=== PATIENT | female | born 1940 | race Caucasian/White ===

== ENCOUNTER 2019-07-05 16:27 | Outpatient (CLI) | payer MEDICARE, SELFPAY ==
--- NOTE | ~2019-07-05 | XR_ITS ---
XR pelvis 1-2V 07/05/2019 16:55 Indication: Low back pain after recent fall Procedure: AP pelvis Comparison: No prior studies for comparison. Findings: Pelvic rings are intact. Moderate lower lumbar spondylosis. 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 Sacral foramen are symmetric. No acute fracture or traumatic malalignment. Impression: 1: No acute fracture. Reviewed, dictated and finalized at location A. Impression: 1: No acute fracture.
--- NOTE | ~2019-07-05 | XR_ITS ---
XR lumbar spine 2-3V 07/05/2019 16:55 Indication: Low back pain. Recent fall. Procedure: 3 views lumbar spine Comparison: 07/21/2018 Findings: There is disc narrowing at all lumbar levels. There is facet hypertrophy at L3-4, L4-5 and L5-S1. There is dextroscoliosis centered at L2. There is cholecystectomy clips. No acute fracture or traumatic malalignment. Impression: 1: Stable moderate-severe lumbar spondylosis with dextroscoliosis. Reviewed, dictated and finalized at location A. Impression: 1: Stable moderate-severe lumbar spondylosis with dextroscoliosis.
== END 2019-07-05 16:28 | disposition home or self-care (01) ==
PROVIDERS: PCP Family Medicine; Visit Provider Family Medicine
DX: S39.92XA Unspecified injury of lower back, initial encounter (principal)
CPT/HCPCS: 72100; 72170

== ENCOUNTER 2019-08-27 10:00 | Outpatient (RCR) | payer MEDICARE, SELFPAY ==
--- NOTE | 2019-08-27 10:46 | PTOPEVAL ---
Thank you for referring Kerri Scott to [facility]. Please review, sign, date and return this plan of care ANTONIO. I agree with and certify that the following plan of care is medically necessary. Referring Physician Date Admitting Provider: Attending Provider: Nito Mccann MD Referring Provider: *PT Outpatient Evaluation Start: 08/27/19 10:08 Freq: Status: Active Protocol: Document 08/27/19 10:08 ELISEO (Rec: 08/27/19 10:46 ELISEO [id number]) Therapy Assessment Status Assessment Status Assessment Status Evaluation Outpatient Past Medical History Cardiovascular History Hx Hypercholesterolemia Yes Hx Hypertension Yes Gastrointestinal History Hx Cholecystectomy Yes Hx Diverticulitis Yes Reproductive History Hx Hysterectomy Yes Evaluation Information Problem Diagnosis low back pain Onset 07/04/19 Subjective Information Pt. reports she was shopping Query Text:As Reported By Patient/ on 07/03 when her leg hit a box Family and she fell against a shelf hitting her back. She reports that she twisted her right l. e. and back. She reports that she went to her doctor who performed xray. She reports that no injury on her xray. She states that majority of her pain is located at the area of the right buttock. She has some right knee pain as well. She reports that pain worsens with increased activity. She reports pain has not improved since the incident. she reports that she is still driving and shopping just with pain. she reports that her goal is to decrease her back pain. Diagnostic Tests X-Rays For This Problem Yes Prior Level of Function Activity Level (Last 3 Months) Occupation retired Hand Dominance Right Activity of Daily Living Ability Independent Indoor/Home Mobility Independent Community Mobility Independent Stairs Ability Independent Functional Cognition (Planning, Shopping Independent , Taking Medications) Cooking Yes Cleaning Yes Laundry Yes Shopping
--- NOTE | 2019-09-20 13:57 | PCPTNOTE ---
09/20/19-pt called to cancel apt, pt stated her legs were jumping today and she didn't want to drive . -HM
--- NOTE | 2019-10-01 13:08 | PTOPEVAL ---
Thank you for referring Kerri Scott to [facility]. Please review, sign, date and return this plan of care ANTONIO. I agree with and certify that the following plan of care is medically necessary. Referring Physician Date Admitting Provider: Attending Provider: Nito Mccann MD Referring Provider: *PT Outpatient Evaluation Start: 08/27/19 10:08 Freq: Status: Active Protocol: Document 10/01/19 12:51 ELISEO (Rec: 10/01/19 13:02 ELISEO [id number]) Therapy Assessment Status Assessment Status Assessment Status Progress Outpatient Past Medical History Cardiovascular History Hx Hypercholesterolemia Yes Hx Hypertension Yes Gastrointestinal History Hx Cholecystectomy Yes Hx Diverticulitis Yes Reproductive History Hx Hysterectomy Yes Evaluation Information Problem Diagnosis low back pain, unsteady gait Onset 07/04/19 Subjective Information Pt. reports that her low back Query Text:As Reported By Patient/ pain is signficantly improved. Family She reports that pain levels at the low back are consistent 07/02. She states that she still has concerns regarding balance. She notes difficulty with lifting objects from the floor, espeically if she does not having something to hold. She reports several recent episodes of LOB and the right l.e. giving out. She reports that she wants to continue with PT in order to improve balance and strength to allow for her to imrpove safety when performing normal household and community activities. Pain Assessment Pain Scale Pain Scale Used Numeric (1 - 10) Self Report Pain Assessment Right Lower Back Reported Pain Level 3 Pain Score Pain Score 3: Self Report Cervical and Lumbar ROM Lumbar ROM Lumbar Flexion Active Ankle Query Text:Hands to: Lumbar Extension (0-40) 10 Query Text:Active in Degrees Lumbar Lateral Flexion Right (0-40) 20 Query Text:Active in Degrees Lumbar Lateral Flexion Left (0-40) 35 Query Text:Active in Degrees Lateral Rotation Right (0-45) 25 Query Text:Active in Degrees Lateral Rotation Left (0-45) 30 Query Text:Active in
--- NOTE | 2019-10-16 11:11 | PCPTNOTE ---
patient called and cancelled appt. APURVA
== END 2019-10-09 23:59 | disposition home or self-care (01) ==
LOC: CHSPT 10:00
PROVIDERS: PCP Family Medicine; Visit Provider Family Medicine
DX: S39.92XA Unspecified injury of lower back, initial encounter (principal)
CPT/HCPCS: 97014; 97110; 97140; 97161; 97530; G0283

== ENCOUNTER 2019-10-17 15:35 | Outpatient (CLI) | payer MEDICARE, SELFPAY ==
[2019-10-17 15:45] LABS: Hemoglobin 13.1 g/dL (11.7-13.8); Mean Corpuscular HGB Conc 32.8 g/dL (32.0-36.0); Mean Corpuscular Hemoglobin 31.2 pg (27.0-31.0); Mean Corpuscular Volume 95.2 fL (78.0-102.0); Mean Platelet Volume 9.4 fl (9.2-11.8); Platelet Count Result 221 K/mm3 (150-420); Red Cell Distribution Width 12.8 % (11.6-14.4); White Blood Count 7.3 K/mm3 (4.8-10.8)
== END 2019-10-17 15:36 | disposition home or self-care (01) ==
LOC: CHSLAB 15:37
PROVIDERS: PCP Family Medicine; Visit Provider Family Medicine
DX: K92.1 Melena (principal)
CPT/HCPCS: 36415; 85027

== ENCOUNTER 2019-11-12 12:10 | Outpatient (CLI) | payer MEDICARE, SELFPAY ==
--- NOTE | ~2019-11-12 | MM_ITS ---
EXAMINATION: MM screening keny BI w jeet HISTORY: Screening mammogram TECHNIQUE: Craniocaudal and mediolateral oblique 3-D tomosynthesis images were obtained and synthetic 2-D images were generated. CAD analysis was submitted and interpreted. COMPARISON: Comparison to multiple prior studies sequentially, with oldest reviewed study dated 11/04. BREAST PARENCHYMAL COMPOSITION: There are scattered areas of fibroglandular density. FINDINGS: Postbiopsy changes are seen in the right breast. There is no evidence of suspicious mass, c alcification, or architectural distortion to suggest malignancy in either breast. There has been no s uspicious interval change. IMPRESSION: 1. No mammographic evidence of malignancy. 2. Recommend routine screening mammography in one year. BI-RADS Category 2: Benign finding(s). Reviewed, dictated and finalized at location A.
== END 2019-11-12 12:11 | disposition home or self-care (01) ==
LOC: CHSIMG 12:12
PROVIDERS: PCP Family Medicine; Visit Provider Family Medicine
DX: Z12.31 Encounter for screening mammogram for malignant neoplasm of breast (principal)
CPT/HCPCS: 77063; 77067

== ENCOUNTER 2019-12-14 12:00 | Outpatient (CLI) | payer MEDICARE, SELFPAY ==
[2019-12-14 12:35] LABS: Add Urine Microscopic? YES; Appearance Urine Clear (Clear); Bilirubin Urine Negative (Negative); Blood Urine Negative (Negative); Color Urine Yellow (Yellow); Glucose Urine UA Negative (Negative); Ketones Urine Negative (Negative); Leukocyte Esterase Ur 1+ LEU/UL (Negative); Nitrate Urine Negative (Negative); Protein Urine Negative (Negative); Specific Grav Ur 1.015 (1.010-1.020); Urobilinogen Urine 0.2 mg/dL (0.2-1.0); pH Urine 6.5 (5.0-8.0)
[2019-12-14 12:40] LABS: Bacteria Urine Trace /hpf; RBC Urine None seen /hpf (0-2); Squamous Epithelial Cell Urine Few /hpf (Few); WBC Urine 0-3 /hpf (0-3)
== END 2019-12-14 12:01 | disposition home or self-care (01) ==
LOC: CHSLAB 12:04
PROVIDERS: PCP Family Medicine; Visit Provider Family Medicine
DX: R30.0 Dysuria (principal)
CPT/HCPCS: 81001; 87086

== ENCOUNTER 2019-12-16 11:04 | Outpatient (CLI) | payer MEDICARE, SELFPAY ==
--- NOTE | ~2019-12-16 | MR_ITS ---
EXAMINATION: MR lumbar spine wo con DATE: 12/16/2019 12:13 INDICATION: Lumbago TECHNIQUE: Magnetic resonance imaging (MRI) of the lumbar spine was performed without intravenous con trast. Sequences included sagittal T2-weighted FSE, sagittal T2-weighted FS FSE, sagittal T1-weighted FSE, and axial T2-weighted FSE. COMPARISON: Lumbar spine radiographs dated 07/05/2019 FINDINGS: Transitional L5 segment which is sacralized on the right and with rudimentary L5-S1 disc space. Mild lumbar dextrorotoscoliosis. Sagittal alignment is normal. Vertebral body heights are normal. Small fo cus of increased T2 signal underlying the central endplate at L1 corresponding relatively linear decr eased T1 signal suggesting a dropping Schmorl's node with sub endplate compression fracture line. [place] ctive marrow edema without evident fracture lines is seen at the bilateral posterior elements of L4 a nd L5. Mild left-sided and severe right-sided disc height loss at L4-L5 with associated right-sided p revascular degenerative endplate changes. Mild to severe left-sided predominant disc height loss at L 2-L3. Mild left-sided disc height loss at L1-L2 and L3-L4. The conus medullaris terminates at L1-L2. There is normal signal in the caudal spinal cord. Paravertebral soft tissues are unremarkable. The fo llowing disc levels are specifically discussed: T12-L1: The disc does not extend beyond the endplate margin. There is mild bilateral facet joint oste oarthritis. There is no neural foraminal stenosis. There is no central canal stenosis. L1-L2: Disc is mildly bulging. There is left-sided and minimal right-sided facet joint osteoarthritis . There is mild bilateral neural foraminal stenosis. There is minimal central canal stenosis. L2-L3: Disc is bulging. There is moderate bilateral facet joint osteoarthritis. There is moderate lef t-sided and mild to moderate right-sided neural foraminal stenosis. There is mild to moderate central canal stenosis. L3-L4: The disc does not extend beyond the endplate margin. There is hypertrophy of the ligamentum fl avum. There is mild right facet joint osteoarthritis. There is solid fusion across the left facet renaldo nt. There is mild bilateral neural foraminal stenosis. There is minimal central canal stenosis. L4-L5: Disc is bulging with superimposed annular fissure as well as endplate osteophytes at the right foraminal zone. There is hypertrophy of the ligamentum flavum. There is severe bilateral facet join t osteoarthritis. There is mild left and severe right neural foraminal stenosis. There is mild centra l canal stenosis. L5-S1: The disc does not extend beyond the endplate margin. There is severe bilateral facet joint ost eoarthritis. There is no neural foraminal stenosis. There is no central canal stenosis. IMPRESSION: 1. Mild lumbar dextrorotoscoliosis with severe spondylosis. 2. Edema associated with small region of linear low signal intensity underlying the central superior endplate of L1 suspicious for subacute endplate fracture line related to developing Schmorl's node. Reviewed, dictated and finalized at location A.
== END 2019-12-16 11:05 | disposition home or self-care (01) ==
PROVIDERS: PCP Family Medicine; Visit Provider Nurse Practitioner Family
DX: M47.896 Other spondylosis, lumbar region (principal)
CPT/HCPCS: 72148

== ENCOUNTER 2020-05-16 07:59 | Outpatient (CLI) | payer MEDICARE, SELFPAY ==
--- NOTE | ~2020-05-16 | US_ITS ---
EXAMINATION: US venous doppler [facility] EXAM DATE: 05/16/2020 09:15 INDICATION: Left leg swelling. TECHNIQUE: Multiple grayscale, color flow and Doppler images of the left lower extremity deep venous system were obtained and reviewed. There is no prior study for comparison. FINDINGS: The left common femoral, femoral and profunda veins demonstrate normal color flow, respirat ory variation, augmentation and compressibility. Compressibility, color flow confirmed within the le ft popliteal, posterior tibial, peroneal, and greater saphenous veins. IMPRESSION: No left lower extremity deep venous thrombosis. Reviewed, dictated and finalized at location A. SETTER
--- NOTE | ~2020-05-16 | US_ITS ---
EXAMINATION: US arterial ankle brachial ind DATE: 05/16/2020 09:15 INDICATION: Left lower limb swelling. TECHNIQUE: Segmental pressures and plethysmographic and Doppler waveforms of the brachial and lower e xtremity arteries were obtained. COMPARISON: None. FINDINGS: Right and left brachial artery pressures of 155 mm Hg and 156 mm Hg, respectively, are concordant (no rmal difference <= 30 mmHg). The right ankle-brachial index (JOSSIE) is 1.33 (normal >= 0.9-1.0). The right great toe-brachial index (TBI) is 1.20 (normal >= 0.65). Arterial Doppler waveforms are biphasic with brisk systolic upstrokes at both the right posterior tibial and dorsalis pedis arteries. The left JOSSIE is 1.14. The left TBI is 0.93. Arterial Doppler waveforms are biphasic with persistent u pstrokes at both the left posterior tibial and dorsalis pedis arteries. IMPRESSION: 1. No significant arterial occlusive disease with normal bilateral ABIs and TBIs. Reviewed, dictated and finalized at location A. E BUSINESS ANALYST IMPRESSION: 1. No significant arterial occlusive disease with normal bilateral ABIs and TBI s.
== END 2020-05-16 08:00 | disposition home or self-care (01) ==
LOC: CHSIMG 08:01
PROVIDERS: PCP Nurse Practitioner Family; Visit Provider Nurse Practitioner Family
DX: M79.89 Other specified soft tissue disorders (principal)
CPT/HCPCS: 93922; 93971

== ENCOUNTER 2020-05-29 12:28 | Outpatient (CLI) | payer MEDICARE, SELFPAY ==
--- NOTE | ~2020-05-29 | XR_ITS ---
XR foot LT min 3V DATE: 05/29/2020 13:12 INDICATION: Posterior heel pain. No known injury. TECHNIQUE: 3 views COMPARISON: None FINDINGS: Prominent posterior calcaneal enthesopathy. Diffuse osteopenia. Osteoarthritis at the first metatarsophalangeal joint. Hallux valgus and bunion deformity. No fracture or dislocation, periosteal reaction or bone destruction. IMPRESSION: Prominent posterior calcaneal enthesopathy Diffuse osteopenia Hallux valgus and bunion deformity Osteoarthritis at first metatarsophalangeal joint Reviewed, dictated and finalized at location A. [facility]
== END 2020-05-29 12:29 | disposition home or self-care (01) ==
LOC: CHSLAB 12:31
PROVIDERS: PCP Nurse Practitioner Family; Visit Provider Podiatrist
DX: M79.671 Pain in right foot (principal); M72.2 Plantar fascial fibromatosis
CPT/HCPCS: 73630

== ENCOUNTER 2020-06-16 12:37 | Outpatient (RCR) | payer MEDICARE, SELFPAY ==
--- NOTE | 2020-06-16 13:54 | PTOPEVAL ---
Thank you for referring Kerri Scott to [facility].? The patient is scheduled to be seen for therapy? __3__x/week for 12 visits. Please review, sign, date and return this plan of care ANTONIO. I agree with and certify that the following plan of care is medically necessary. Referring Physician Date Admitting Provider: Attending Provider: Chemo Faust DPM Referring Provider: *PT Outpatient Evaluation Start: 06/16/20 12:58 Freq: Status: Active Protocol: Document 06/16/20 12:59 ELISEO (Rec: 06/16/20 13:54 ELISEO [id number]) Therapy Assessment Status Assessment Status Assessment Status Evaluation Outpatient Past Medical History Neurological History Hx Neurological Disorders No Significant History Cardiovascular History Hx Cardiac Arrhythmia Yes: Rapid Heart Beat several years ago Hx Coronary Artery Disease Yes: Right Endarterectomy Hx Hypercholesterolemia Yes Hx Hypertension Yes Respiratory History Hx Respiratory Disorders No Significant History Gastrointestinal History Hx Cholecystectomy Yes Hx Colitis Yes Hx Diverticulitis Yes Hx Gastrointestinal Bleed Yes: Blood in Stool 09/2019 Genitourinary History Hx Bladder Surgery Yes: R/T Prolapsed bladder Musculoskeletal History Hx Arthritis Yes: Biltaeral knees Hematological History Hx Hematological Disorders No Significant History Endocrine History Hx Endocrine Disorders No Significant History HEENT History Hx Cataracts Yes: Removed Integumentary History Hx Skin Disorders No Significant History Reproductive History Hx Hysterectomy Yes: Partial Psychosocial History Hx Psychiatric Disorders No Significant History Pain History History of Any Previous or Ongoing No Significant History Instance of Pain Anesthesia History Hx Other Anesthesia Reactions Yes: Facial swelling & trouble breathing after 2 unknown anes. meds were given. Evaluation Information Problem Diagnosis achilles tendonitis, plantar fasciitis, left Onset 04/25/20 Subjective Information Pt. reports that she developed Query Text:As Reported By Patient/ pain around the begining of Family april. she recalls no incident just sudden onset of pain. She reports that pain will come and go, but is present majority of the time. She reports that she is still able to care for herself,
--- NOTE | 2020-07-29 07:31 | PTOPEVAL ---
Thank you for referring Kerri Scott to [facility].? The patient is scheduled to be seen for therapy? __2__x/week for 6 visits. Please review, sign, date and return this plan of care ANTONIO. I agree with and certify that the following plan of care is medically necessary. Referring Physician Date Admitting Provider: Attending Provider: Chemo Faust DPM Referring Provider: *PT Outpatient Evaluation Start: 06/16/20 12:58 Freq: Status: Active Protocol: Document 07/16/20 11:15 ELISEO (Rec: 07/16/20 11:48 ELISEO [email or web address]) Therapy Assessment Status Assessment Status Assessment Status Progress Outpatient Past Medical History Neurological History Hx Neurological Disorders No Significant History Cardiovascular History Hx Cardiac Arrhythmia Yes: Rapid Heart Beat several years ago Hx Coronary Artery Disease Yes: Right Endarterectomy Hx Hypercholesterolemia Yes Hx Hypertension Yes Respiratory History Hx Respiratory Disorders No Significant History Gastrointestinal History Hx Cholecystectomy Yes Hx Colitis Yes Hx Diverticulitis Yes Hx Gastrointestinal Bleed Yes: Blood in Stool 09/2019 Genitourinary History Hx Bladder Surgery Yes: R/T Prolapsed bladder Musculoskeletal History Hx Arthritis Yes: Biltaeral knees Hematological History Hx Hematological Disorders No Significant History Endocrine History Hx Endocrine Disorders No Significant History HEENT History Hx Cataracts Yes: Removed Integumentary History Hx Skin Disorders No Significant History Reproductive History Hx Hysterectomy Yes: Partial Psychosocial History Hx Psychiatric Disorders No Significant History Pain History History of Any Previous or Ongoing No Significant History Instance of Pain Anesthesia History Hx Other Anesthesia Reactions Yes: Facial swelling & trouble breathing after 2 unknown anes. meds were given. Evaluation Information Problem Diagnosis achilles tendonitis, plantar fasciitis, left Onset 04/25/20 Subjective Information Pt. reports that her foot pain Query Text:As Reported By Patient/ is better but still present. Family She reports that she is walking better since beginning therapy, but still needs to use her walker. She notes more frequent episodes of the right knee giving out. she feels she has just gotten to
== END 2020-08-15 08:56 | disposition home or self-care (01) ==
LOC: CHSPT 12:37
PROVIDERS: PCP Nurse Practitioner Family; Visit Provider Podiatrist
DX: M72.2 Plantar fascial fibromatosis (principal); M76.62 Achilles tendinitis, left leg
CPT/HCPCS: 97110; 97112; 97140; 97161; 97530

== ENCOUNTER 2020-08-23 10:32 | Outpatient (CLI) | payer MEDICARE, SELFPAY | END 2020-08-23 10:33 | disposition home or self-care (01) | LOC: CHSCOVIDVC 10:32 | PROVIDERS: PCP Nurse Practitioner Family | DX: Z23 Encounter for immunization (principal) | CPT/HCPCS: 0011A; 91301 ==

== ENCOUNTER 2020-09-20 10:38 | Outpatient (CLI) | payer MEDICARE, SELFPAY | END 2020-09-20 10:39 | disposition home or self-care (01) | LOC: CHSCOVIDVC 10:38 | PROVIDERS: PCP Nurse Practitioner Family | DX: Z23 Encounter for immunization (principal) | CPT/HCPCS: 0012A; 91301 ==

== ENCOUNTER 2020-09-30 11:40 | Outpatient (NON) | payer MEDICARE, SELFPAY | END 2020-09-30 11:41 | disposition home or self-care (01) | LOC: CHSLAB 11:41 | PROVIDERS: Visit Provider Nurse Practitioner Family | DX: N39.0 Urinary tract infection, site not specified (principal) | CPT/HCPCS: 87086 ==

== ENCOUNTER 2020-12-01 11:50 | Outpatient (CLI) | payer MEDICARE, SELFPAY ==
--- NOTE | ~2020-12-01 | MM_ITS ---
EXAMINATION: MM screening [facility] BI w jeet HISTORY: Screening TECHNIQUE: Craniocaudal and mediolateral oblique 3-D tomosynthesis images were obtained and synthetic 2-D images were generated. CAD analysis was submitted and interpreted. COMPARISON: Comparison to multiple prior studies sequentially, with oldest reviewed study dated 11/10. BREAST PARENCHYMAL COMPOSITION: There are scattered areas of fibroglandular density. FINDINGS: There are stable biopsy changes of the right breast. There is no evidence of suspicious mas s, calcification, or architectural distortion to suggest malignancy in either breast. There has been no suspicious interval change. IMPRESSION: 1. No mammographic evidence of malignancy. 2. Recommend routine screening mammography in one year. BI-RADS Category 2: Benign finding(s). Reviewed, dictated and finalized at location A.
== END 2020-12-01 11:51 | disposition home or self-care (01) ==
LOC: CHSIMG 11:51
PROVIDERS: PCP Nurse Practitioner Family; Visit Provider Nurse Practitioner Family
DX: Z12.31 Encounter for screening mammogram for malignant neoplasm of breast (principal)
CPT/HCPCS: 77063; 77067

== ENCOUNTER 2021-03-31 11:47 | Outpatient (CLI) | payer MEDICARE, SELFPAY ==
[2021-03-31 13:45] LABS: Basophils Absolute Auto 0.05 K/mm3 (0.00-0.10); Basophils Percent Auto 0.6 % (0.0-1.0); Eosinophils Absolute Auto 0.09 K/mm3 (0.02-0.50); Hematocrit 38.9 % (35.0-42.0); Hemoglobin 12.6 g/dL (11.7-13.8); Immature Granulocyte Absolute 0.03 K/mm3 (0.00-0.00); Immature Granulocyte Percent A 0.3 % (0.0-0.0); Lymphocytes Absolute Auto 1.64 K/mm3 (1.10-4.50); Mean Corpuscular HGB Conc 32.4 g/dL (32.0-36.0); Mean Corpuscular Hemoglobin 30.5 pg (27.0-31.0); Mean Corpuscular Volume 94.2 fL (78.0-102.0); Mean Platelet Volume 11.2 fl (9.2-11.8); Monocytes Absolute Auto 0.73 K/mm3 (0.10-0.90); Monocytes Percent Auto 8.5 % (2.0-11.0); Neutrophils Absolute Auto 6.1 K/mm3 (1.7-7.2); Neutrophils Percent Auto 70.6 % (50.0-70.0); Platelet Count Result 238 K/mm3 (150-420); Red Blood Count 4.13 M/mm3 (4.20-5.40); Red Cell Distribution Width 13.8 % (11.6-14.4); White Blood Count 8.6 K/mm3 (4.8-10.8)
[2021-03-31 14:06] LABS: Alanine Aminotransferase 18 U/L (14-59); Albumin Level 3.9 g/dL (3.4-5.0); Alkaline Phosphatase 57 U/L (46-116); Anion Gap 12 mmol/L (8-16); Aspartate Amino Transferase 15 U/L (15-37); Bilirubin,Total 0.6 mg/dL (0.00-1.00); Blood Urea Nitrogen 18 mg/dL (7-18); Calcium 8.9 mg/dL (8.5-10.1); Carbon Dioxide 28 mmol/L (21-32); Chloride 103 mmol/L (98-108); Cholesterol 145 mg/dL (0-200); Estimated Glomerular Filt Rate > 60; Glucose 89 mg/dL (70-99); HDL Direct 69 mg/dL (40-60); LDL Cholesterol Calculated 65 mg/dL (<130); Osmolality Calculated 296 mOsm/kg (285-295); Potassium 4.3 mmol/L (3.5-5.1); Sodium 143 mmol/L (136-145); Total Protein 7.3 g/dL (6.4-8.2); Triglycerides 55 mg/dL (0-150)
== END 2021-03-31 11:48 | disposition home or self-care (01) ==
PROVIDERS: PCP Nurse Practitioner Family; Visit Provider Nurse Practitioner Family
DX: E78.5 Hyperlipidemia, unspecified (principal); I10 Essential (primary) hypertension
CPT/HCPCS: 36415; 80053; 80061; 85025

== ENCOUNTER 2021-04-06 10:11 | Outpatient (NON) | payer MEDICARE, SELFPAY | END 2021-04-06 10:12 | disposition home or self-care (01) | LOC: CHSLAB 10:12 | PROVIDERS: Visit Provider Nurse Practitioner Family | DX: R30.0 Dysuria (principal) | CPT/HCPCS: 87086 ==

== ENCOUNTER 2021-08-17 10:00 | Outpatient (CLI) | payer MEDICARE, SELFPAY ==
[2021-08-17 10:13] LABS: Basophils Absolute Auto 0.04 K/mm3 (0.00-0.10); Basophils Percent Auto 0.5 % (0.0-1.0); Eosinophils Percent Auto 2.3 % (1.0-6.0); Hematocrit 43.7 % (35.0-42.0); Hemoglobin 13.8 g/dL (11.7-13.8); Immature Granulocyte Absolute 0.05 K/mm3 (0.00-0.00); Immature Granulocyte Percent A 0.6 % (0.0-0.0); Lymphocytes Absolute Auto 1.68 K/mm3 (1.10-4.50); Lymphocytes Percent Auto 19.6 % (18.0-42.0); Mean Corpuscular HGB Conc 31.6 g/dL (32.0-36.0); Mean Corpuscular Hemoglobin 31.6 pg (27.0-31.0); Mean Platelet Volume 10.1 fl (9.2-11.8); Monocytes Absolute Auto 0.79 K/mm3 (0.10-0.90); Monocytes Percent Auto 9.2 % (2.0-11.0); Neutrophils Absolute Auto 5.8 K/mm3 (1.7-7.2); Neutrophils Percent Auto 67.8 % (50.0-70.0); Platelet Count Result 263 K/mm3 (150-420); Red Blood Count 4.37 M/mm3 (4.20-5.40); Red Cell Distribution Width 12.3 % (11.6-14.4); White Blood Count 8.6 K/mm3 (4.8-10.8)
[2021-08-17 10:22] LABS: Add Urine Microscopic? YES; Appearance Urine Clear (Clear); Bilirubin Urine Negative (Negative); Blood Urine Negative (Negative); Color Urine Light Yellow (Yellow); Glucose Urine UA Negative (Negative); Ketones Urine Negative (Negative); Leukocyte Esterase Ur 1+ LEU/UL (Negative); Nitrate Urine Negative (Negative); Protein Urine Negative (Negative); Urobilinogen Urine 0.2 mg/dL (0.2-1.0); pH Urine 5.5 (5.0-8.0)
[2021-08-17 10:33] LABS: Bacteria Urine Trace /hpf; RBC Urine None seen /hpf (0-2); Squamous Epithelial Cell Urine Few /hpf (Few); WBC Urine 0-3 /hpf (0-3)
[2021-08-17 10:59] LABS: Alanine Aminotransferase 17 U/L (14-59); Albumin Level 3.9 g/dL (3.4-5.0); Alkaline Phosphatase 60 U/L (46-116); Anion Gap 8 mmol/L (8-16); Aspartate Amino Transferase 18 U/L (15-37); Bilirubin,Total 0.4 mg/dL (0.00-1.00); Blood Urea Nitrogen 12 mg/dL (7-18); Calcium 9.2 mg/dL (8.5-10.1); Carbon Dioxide 30 mmol/L (21-32); Chloride 105 mmol/L (98-108); Estimated Glomerular Filt Rate > 60; Glucose 105 mg/dL (70-99); Osmolality Calculated 295 mOsm/kg (285-295); Potassium 4.1 mmol/L (3.5-5.1); Sodium 143 mmol/L (136-145); Total Protein 7.4 g/dL (6.4-8.2)
== END 2021-08-17 10:01 | disposition home or self-care (01) ==
LOC: CHSLAB 10:03
PROVIDERS: PCP Nurse Practitioner Family; Visit Provider Nurse Practitioner Family
DX: Z87.898 Personal history of other specified conditions (principal); I10 Essential (primary) hypertension; R82.90 Unspecified abnormal findings in urine
CPT/HCPCS: 36415; 80053; 81001; 85025; 87086

== ENCOUNTER 2021-10-07 14:39 | Outpatient (CLI) | payer MEDICARE, SELFPAY ==
--- NOTE | ~2021-10-07 | US_ITS ---
EXAMINATION: US venous doppler [facility] DATE: 10/07/2021 15:27 INDICATION: Left lower limb swelling and erythema TECHNIQUE: Grayscale ultrasound images without and with compression and Doppler ultrasound images of the left lower extremity veins were obtained. COMPARISON: 05/16/2020 FINDINGS: The visualized portions of left common femoral vein, profunda (deep) femoral vein, femoral vein, popl iteal vein, peroneal veins, posterior tibial veins, gastrocnemius vein and greater saphenous vein out flow are patent. 3.9 x 1.1 x 2.3 cm anechoic Yeung cyst at the popliteal fossa. IMPRESSION: 1. No deep venous thrombosis in the left lower limb. 2. Small Yeung's cyst at the left popliteal fossa. Reviewed, dictated and finalized at location A.
[2021-10-07 15:03] LABS: Basophils Absolute Auto 0.04 K/mm3 (0.00-0.10); Basophils Percent Auto 0.5 % (0.0-1.0); Eosinophils Absolute Auto 0.11 K/mm3 (0.02-0.50); Eosinophils Percent Auto 1.4 % (1.0-6.0); Hematocrit 41.9 % (35.0-42.0); Hemoglobin 13.6 g/dL (11.7-13.8); Immature Granulocyte Absolute 0.06 K/mm3 (0.00-0.00); Immature Granulocyte Percent A 0.7 % (0.0-0.0); Lymphocytes Absolute Auto 1.73 K/mm3 (1.10-4.50); Lymphocytes Percent Auto 21.5 % (18.0-42.0); Mean Corpuscular HGB Conc 32.5 g/dL (32.0-36.0); Mean Corpuscular Hemoglobin 31.4 pg (27.0-31.0); Mean Corpuscular Volume 96.8 fL (78.0-102.0); Mean Platelet Volume 9.7 fl (9.2-11.8); Monocytes Absolute Auto 0.62 K/mm3 (0.10-0.90); Monocytes Percent Auto 7.7 % (2.0-11.0); Neutrophils Absolute Auto 5.5 K/mm3 (1.7-7.2); Neutrophils Percent Auto 68.2 % (50.0-70.0); Platelet Count Result 263 K/mm3 (150-420); Red Blood Count 4.33 M/mm3 (4.20-5.40); Red Cell Distribution Width 12.1 % (11.6-14.4); White Blood Count 8.1 K/mm3 (4.8-10.8)
[2021-10-07 15:24] LABS: D Dimer 1.07 mg/L (0.19-0.50)
[2021-10-07 17:22] LABS: Alanine Aminotransferase 16 U/L (14-59); Albumin Level 3.6 g/dL (3.4-5.0); Alkaline Phosphatase 64 U/L (46-116); Anion Gap 5 mmol/L (8-16); Aspartate Amino Transferase 17 U/L (15-37); Bilirubin,Total 0.3 mg/dL (0.00-1.00); Blood Urea Nitrogen 12 mg/dL (7-18); Carbon Dioxide 30 mmol/L (21-32); Chloride 105 mmol/L (98-108); Estimated Glomerular Filt Rate 57; Glucose 117 mg/dL (70-99); Osmolality Calculated 290 mOsm/kg (285-295); Potassium 3.5 mmol/L (3.5-5.1); Sodium 140 mmol/L (136-145); Total Protein 7.4 g/dL (6.4-8.2)
== END 2021-10-07 14:40 | disposition home or self-care (01) ==
PROVIDERS: PCP Nurse Practitioner Family; Visit Provider Nurse Practitioner Family
DX: M79.89 Other specified soft tissue disorders (principal); R23.8 Other skin changes; R79.89 Other specified abnormal findings of blood chemistry
CPT/HCPCS: 36415; 80053; 83036; 85025; 85380; 93971

== ENCOUNTER 2021-10-08 12:42 | Outpatient (CLI) | payer MEDICARE, SELFPAY ==
--- NOTE | ~2021-10-08 | XR_ITS ---
XR chest 2V DATE: 10/08/2021 14:09 INDICATION: Syncope. Elevated d-dimer. TECHNIQUE: 2 views COMPARISON: 10/08/2021 pulmonary perfusion scan 04/07/2016 2 view chest FINDINGS: There is chronic bilateral apical capping, present on 04/07/2016. Moderate hyperinflation of the lungs. No pulmonary infiltrate or consolidation, pleural effusion or p ulmonary vascular congestion or pneumothorax. Normal heart size. Is aortic calcification and mild unfolding. No hilar or mediastinal enlargement. Diffuse osteopenia. There is levoscoliosis of the thoracolumbar spine. IMPRESSION: Chronic bilateral apical scarring and moderate hyperinflation No active cardiopulmonary disease or significant change since 04/07/2016 Reviewed, dictated and finalized at location A.
--- NOTE | ~2021-10-08 | NM_ITS ---
EXAMINATION: NM pulmonary perfusion DATE: 10/08/2021 14:11 INDICATION: Pulmonary embolus. Syncope. Elevated d-dimer. TECHNIQUE: 5.0 mCi Tc-99m MAA was administered intravenously for perfusion images. Scintigraphic rachel ges of the chest were obtained. COMPARISON: Chest 2 views 10/08/2021, CT abdomen and pelvis 03/23/2019 FINDINGS: Perfusion images show small defects in all lobes. IMPRESSION: 1. Pulmonary embolism absent (low probability). Reviewed, dictated and finalized at location B.
[2021-10-08 13:42] LABS: Hemoglobin A1C 6.4 % (<5.7)
== END 2021-10-08 12:43 | disposition home or self-care (01) ==
LOC: CHSIMG 12:49
PROVIDERS: PCP Nurse Practitioner Family; Visit Provider Nurse Practitioner Family
DX: R73.09 Other abnormal glucose (principal); R79.89 Other specified abnormal findings of blood chemistry
CPT/HCPCS: 36415; 71046; 78580; 83036; A9540

== ENCOUNTER 2021-12-02 11:45 | Outpatient (CLI) | payer MEDICARE, SELFPAY ==
--- NOTE | ~2021-12-02 | MM_ITS ---
EXAMINATION: MM screening [facility] BI w jeet HISTORY: Screening mammogram TECHNIQUE: Craniocaudal and mediolateral oblique 3-D tomosynthesis images were obtained and synthetic 2-D images were generated. CAD analysis was submitted and interpreted. COMPARISON: 12/01/2020, 11/12/2019, 11/17/2018 BREAST PARENCHYMAL COMPOSITION: There are scattered areas of fibroglandular density. FINDINGS: RIGHT BREAST: There is no suspicious mass, calcification, or architectural distortion to suggest omaira gnancy. There has been no significant interval change. LEFT BREAST: There is a possible mass in the anterior third of the upper outer quadrant of the breast 4 cm from the nipple. IMPRESSION: 1. Possible left breast. 2. Additional mammographic views and possible breast ultrasound are recommended. BI-RADS Category 0: Incomplete: Needs additional imaging evaluation. Reviewed, dictated and finalized at location A. IMPRESSION: 1. Possible left breast. 2. Additional mammographic views and possible breast ultrasound are recommended . BI-RADS Category 0: Incomplete: Needs additional imaging evaluation.
== END 2021-12-02 11:46 | disposition home or self-care (01) ==
LOC: CHSIMG 11:48
PROVIDERS: PCP Nurse Practitioner Family; Visit Provider Nurse Practitioner Family
DX: Z12.31 Encounter for screening mammogram for malignant neoplasm of breast (principal)
CPT/HCPCS: 77063; 77067

== ENCOUNTER 2021-12-11 08:46 | Outpatient (CLI) | payer MEDICARE, SELFPAY ==
--- NOTE | ~2021-12-11 | MM_ITS ---
EXAMINATION: MM diagnostic keny LT w jeet HISTORY: Possible small breast mass in anterior third of upper outer quadrant 4 cm from nipple TECHNIQUE: Additional 3-D tomosynthesis images of left breast were performed and synthetic 2-D images were generated. CAD analysis was submitted and interpreted. COMPARISON: 12/02/2021 bilateral screening mammogram FINDINGS: No suspicious reproducible mass. No architectural distortion, malignant calcification, skin thickening or retraction. IMPRESSION: 1. No mammographic evidence of malignancy 2. Routine mammographic screening is recommended BI-RADS Category 1: Negative Reviewed, dictated and finalized at location A.
== END 2021-12-11 08:47 | disposition home or self-care (01) ==
PROVIDERS: PCP Nurse Practitioner Family; Visit Provider Nurse Practitioner Family
DX: N63.20 Unspecified lump in the left breast, unspecified quadrant (principal); R92.8 Other abnormal and inconclusive findings on diagnostic imaging of breast
CPT/HCPCS: 77061; 77065; G0279

== ENCOUNTER 2022-10-21 18:03 | Emergency (ER) | payer MEDICARE, SELFPAY ==
--- NOTE | ~2022-10-21 | CT_ITS ---
EXAMINATION: CT abdomen pelvis wo con DATE: 10/21/2022 19:12 INDICATION: DIARRHEA X 5 DAYS TECHNIQUE: Computed tomography (CT) of the abdomen and pelvis was performed without intravenous contr ast. Automated exposure control and iterative reconstruction technique were employed. The dose-length product was 366.43 mGy-cm. COMPARISON: 02/20/2019. FINDINGS: Lower thorax: Mild senescent change. Mild dependent atelectasis. Scattered sub-6 mm pulmonary nodules , stable since the prior study, consistent with granulomas. Coronary artery calcifications. Liver: Normal. Biliary/Gallbladder: Gallbladder is absent. No bile duct dilation. Pancreas: Mild fatty atrophy. Spleen: Normal. Adrenals:Left adrenal adenoma. Kidneys: No mass, stone, or hydronephrosis. GI tract: No small or large bowel dilation. Appendicoliths, no dilation or inflammatory change. Diver ticulosis without diverticulitis. Mesentery/Peritoneum: No ascites, mass, or free air. Retroperitoneum: No mass. Atherosclerotic abdominal aortic and/or arterial calcifications. Pelvis: Pelvic organs are within normal limits. Soft Tissues: Soft tissues and body wall unremarkable. Bones: New superior endplate deformity at L1. IMPRESSION: Mild compression deformity at L1, new since the prior examination of 2018, but otherwise uncertain ag e, correlate with pain/tenderness. Otherwise, no acute abdominopelvic process. Reviewed, dictated and finalized at location K. IMPRESSION: Mild compression deformity at L1, new since the prior examination of 2018, but otherwise uncertain age, correlate with pain/tenderness. Otherwise, no acute abdominopelvic process.
[2022-10-21 18:21] VITALS: BP 129/52; PULSE 104; RESP 18; TEMP 37.1; O2SAT 94
--- NOTE | 2022-10-21 18:31 | ECG_ITS ---
Measurements Intervals [place] Rate: 96 P: 96 WA: 110 QRS: 78 QRSD: 86 T: 47 QT: 344 QTc: 436 Interpretive Statements BASELINE ARTIFACT/POOR DATA QUALITY SINUS RHYTHM WITH SHORT WA INTERVAL MODERATE ST DEPRESSION [0.05+ mV ST DEPRESSION] BORDERLINE ECG NO PREVIOUS ECG AVAILABLE FOR COMPARISON Electronically Signed On 10-22-2022 17:36:06 CDT by William Lopez M.D.
[2022-10-21] MEDS: SODIUM CHLORIDE 0.9% IV 1,000 ML 999 ML IV CONT (18:39)
[2022-10-21] MEDS: KETOROLAC 30 MG/ML VIAL (*BKC) IV PUSH (18:39)
[2022-10-21 19:04] LABS: Basophils Absolute Auto 0.03 K/mm3 (0.00-0.10); Basophils Percent Auto 0.5 % (0.0-1.0); Eosinophils Absolute Auto 0.04 K/mm3 (0.02-0.50); Eosinophils Percent Auto 0.6 % (1.0-6.0); Hematocrit 37.8 % (35.0-42.0); Hemoglobin 12.2 g/dL (11.7-13.8); Immature Granulocyte Absolute 0.03 K/mm3 (0.00-0.00); Immature Granulocyte Percent A 0.5 % (0.0-0.0); Lymphocytes Absolute Auto 0.98 K/mm3 (1.10-4.50); Lymphocytes Percent Auto 14.8 % (18.0-42.0); Mean Corpuscular HGB Conc 32.3 g/dL (32.0-36.0); Mean Corpuscular Volume 95.9 fL (78.0-102.0); Mean Platelet Volume 10.2 fl (9.2-11.8); Monocytes Absolute Auto 0.52 K/mm3 (0.10-0.90); Monocytes Percent Auto 7.9 % (2.0-11.0); Neutrophils Percent Auto 75.7 % (50.0-70.0); Platelet Count Result 211 K/mm3 (150-420); Red Blood Count 3.94 M/mm3 (4.20-5.40); Red Cell Distribution Width 13.1 % (11.6-14.4); White Blood Count 6.6 K/mm3 (4.8-10.8)
[2022-10-21 19:13] VITALS: BP 117/99; PULSE 88; RESP 18; O2SAT 97
[2022-10-21 19:19] LABS: Partial Thromboplastin Time 29.5 SEC (23.90-30.70); Prothrombin Time 10.9 Seconds (9.50-12.10)
[2022-10-21 19:20] LABS: Alanine Aminotransferase 17 U/L (14-59); Albumin Level 3.4 g/dL (3.4-5.0); Alkaline Phosphatase 57 U/L (46-116); Anion Gap 15 mmol/L (8-16); Aspartate Amino Transferase 24 U/L (15-37); Bilirubin,Total 0.6 mg/dL (0.00-1.00); Blood Urea Nitrogen 31 mg/dL (7-18); Calcium 8.5 mg/dL (8.5-10.1); Carbon Dioxide 23 mmol/L (21-32); Chloride 105 mmol/L (98-108); Estimated Glomerular Filt Rate 50; Glucose 82 mg/dL (70-99); Lipase 18 U/L (16-77); Osmolality Calculated 301 mOsm/kg (285-295); Potassium 3.7 mmol/L (3.5-5.1); Sodium 143 mmol/L (136-145); Total Protein 7.1 g/dL (6.4-8.2)
--- NOTE | 2022-10-21 19:34 | ED.NAVMDI ---
HPI - Nausea/Vomiting/Diarrhea General Chief complaint: Nausea/Vomiting/Diarrhea Stated complaint: Ambulance Source: patient Mode of arrival: ambulatory Limitations: no limitations History of Present Illness HPI Narrative: This is a an 82-year-old female that presents with some 3 day history of diarrhea has been watery diarrhea with some history of diverticulitis currently the patient has no nausea or vomiting does have some crampy abdominal pain with some vital signs that have been stable with no chest pain no shortness of breath. The patient had orders for an outpatient workup for stool samples but some came to the emergency department because of the watery diarrhea. She is afebrile with no nausea or vomiting. MD elicited complaint: diarrhea Onset (ago): day(s) Description of vomiting: watery Associated nausea: No Associated abdominal pain: Yes Radiation: diffuse Severity: mild Related Data Home Medications Medication Instructions Recorded Confirmed aspirin 81 mg tablet,delayed 81 mg PO DAILY 02/26/19 10/21/22 release (Enteric Coated Aspirin) Allergies Allergy/AdvReac Type Severity Reaction Status Date / Time codeine Allergy Intermediate unknown Verified 10/21/22 18:19 iodine Allergy Intermediate Unknown Verified 10/21/22 18:19 meperidine [Demerol] Allergy Intermediate Unknown Verified 10/21/22 18:19 Penicillins Allergy Intermediate Unknown Verified 10/21/22 18:19 propoxyphene [Darvon-N] Allergy Intermediate Unknown Verified 10/21/22 18:19 tramadol Allergy Intermediate Unknown Verified 10/21/22 18:19 Anesthesia Med Allergy Severe Difficulty Uncoded 10/21/22 18:19 Breathing Darvocet A500 Allergy Intermediate Unknown Uncoded 10/21/22 18:19 Review of Systems Review of Systems: All systems reviewed & are unremarkable except as noted in HPI and below PMFSH Past Medical History Medical History Acute bronchitis Arthritis, lumbar spine Bug bite Carotid artery stenosis Cellulitis Diverticulitis Fall HTN (hypertension) Hyperlipemia Nicotine dependence, cigarettes, in remission Osteoarthritis, knee Rectal bleeding UTI (urinary tract infection) Surgical History Surgical History Carotid stenosis, right H/O cataract removal with insertion of prosthetic lens (04/25/00) History of bladder repair surgery History of cholecystectomy History of hysterectomy Age 31 Hx of tonsillectomy Family History Family History Mother Family history of schizophrenia Father Heart failure Sibling Brain tumor Other Family history of malignant neoplasm Social History Social History Smoking packs per day: 1 Smoking cigarettes per day: 20.0 Years smoked: 63 Smoking pack-years: 63.00 Smoking status: Former smoker Smoking end date: 10/08/18 Alcohol intake: never Substance use: never Substance use type: does not use Living arrangements: alone Occupation/Education: retired Gender identity (if verbalized by the patient): Female Sexual Orientation (if Verbalized by the Patient): Straight or Heterosexual Spiritual care concerns: No Exam Const: General: healthy appearing and no acute distress Nutritional Appearance: well nourished Orientation/consciousness: patient oriented x3 Limitations: no limitations HENMT: Head: normal to inspection Eyes: Conjunctivae: conjunctivae normal Neck: Neck: normal visual inspection Chest: Chest palpation & inspection: normal inspection of the chest Resp: Effort & Inspection: normal respiratory effort Auscultation: clear to auscultation bilaterally Cardio: Rate: regular rate Rhythm: regular rhythm GI: GI Palp: Yes Soft to palpation and Yes Tenderness to palpation present (GI) Auscultation: nor
--- NOTE | 2022-10-21 20:13 | PC.NURSE ---
Per Md Reyez, pt can be discharge without collecting a urine specimen.
[2022-10-21 20:17] VITALS: BP 126/56; PULSE 91; RESP 19; TEMP 36.9; O2SAT 97
== END 2022-10-21 20:19 | disposition home or self-care (01) ==
PROVIDERS: Emergency Provider Emergency Medicine; PCP Nurse Practitioner Family
DX: K52.9 Noninfective gastroenteritis and colitis, unspecified (principal); I10 Essential (primary) hypertension; E78.5 Hyperlipidemia, unspecified; Z79.82 Long term (current) use of aspirin; Z87.891 Personal history of nicotine dependence
CPT/HCPCS: 36415; 74176; 80053; 83605; 83690; 85025; 85610; 85730; 93005; 96361; 96374; 99284; J1885; J7030

== ENCOUNTER 2022-10-22 14:23 | Outpatient (CLI) | payer MEDICARE, SELFPAY | END 2022-10-22 14:24 | disposition home or self-care (01) | LOC: CHSLAB 14:24 | PROVIDERS: PCP Nurse Practitioner Family; Visit Provider Nurse Practitioner Family | DX: M54.9 Dorsalgia, unspecified (principal) | CPT/HCPCS: 99199 ==

== ENCOUNTER 2022-10-31 14:20 | Emergency (ER) | payer MEDICARE, SELFPAY ==
[2022-10-31] VITALS (8 sets, daily range): BP systolic 106–161; BP diastolic 49–90; PULSE 55–88; RESP 18–20; TEMP 37.1; O2SAT 93–97
--- NOTE | ~2022-10-31 | CT_ITS ---
EXAMINATION: CT abdomen pelvis wo con DATE: 10/31/2022 17:48 INDICATION: ABDOMINAL PAIN, LOW BACK PAIN. PAIN RADIATES DOWN RIGHT LEG TECHNIQUE: Computed tomography (CT) of the abdomen and pelvis was performed without intravenous contr ast. Automated exposure control and iterative reconstruction technique were employed. The dose-length product was 534.60 mGy-cm. COMPARISON: 10/21/2022. FINDINGS: Lower thorax: Stable scattered sub-6 mm granulomas. Dependent scar/atelectasis. Coronary artery calci fication. Liver: Normal. Biliary/Gallbladder: Gallbladder is absent. No bile duct dilation. Pancreas: Mild atrophy Spleen: Normal. Adrenals:Left adrenal adenoma Kidneys: No mass, stone, or hydronephrosis. GI tract: No small or large bowel dilation. Appendicoliths, no dilation or inflammatory change. Diver ticulosis without diverticulitis. Mesentery/Peritoneum: No ascites, mass, or free air. Retroperitoneum: No mass. Atherosclerotic abdominal aortic and/or arterial calcifications. Pelvis: The uterus is surgically absent. Marked urinary bladder distention without wall thickening. 1 9 mm urethrocele versus [place]'s duct cyst to the right of midline in the lower pelvis. Soft Tissues: Soft tissues and body wall unremarkable. Bones: Moderate compression deformity at L1 involving the posterior cortex, with 4 mm retropulsion o f bone fragments. IMPRESSION: Acute moderate burst fracture at L1 with 4 mm retropulsion of bone fragments into the spinal canal. Marked urinary bladder distention, correlate for clinical findings of urinary retention. Reviewed, dictated and finalized at location K. IMPRESSION: Acute moderate burst fracture at L1 with 4 mm retropulsion of bone fragments in to the spinal canal. Marked urinary bladder distention, correlate for clinical findings of urinary r etention.
--- NOTE | 2022-10-31 15:15 | ED.GENADULT ---
HPI - General Adult General Chief complaint: Back Pain/Injury Stated complaint: sciatica pain Time Seen by Provider: 10/31/22 15:15 Source: patient Mode of arrival: ambulatory Limitations: no limitations History of Present Illness HPI narrative: 82-year-old white female complains of low back pain radiating around to her both hips and down her right leg. She had a compression fracture on 10/28 was given some nonsteroidals diclofenac and dicyclomine sheep complains of pain at 10/10 for the past week but she says she has had this pain for 3 or 4 years she has had diverticulitis in the past denies any cough shortness of breath sore throat fever rash or itching lumps or bumps bleeding. she says she bleeds easily. She walks with a walker because of back problems she went to physical therapy earlier this year to get strength. Denies any problems hearing or seeing her talking. Denies any history of kidney liver disease diabetes hypertension anemia cancer thyroid strokes or lung disease. Denies any nausea vomiting or blood in her stools or diarrhea. Denies any problems voiding or stooling. Says she has taken Tylenol for pain. She is allergic to Demerol iodine codeine tramadol Related Data Home Medications Medication Instructions Recorded Confirmed aspirin 81 mg tablet,delayed 81 mg PO DAILY 02/26/19 10/31/22 release (Enteric Coated Aspirin) metoprolol succinate 50 mg 50 mg PO BID 10/31/22 10/31/22 tablet,extended release 24 hr simvastatin 10 mg tablet 10 mg PO DAILY 10/31/22 10/31/22 Allergies Allergy/AdvReac Type Severity Reaction Status Date / Time codeine Allergy Intermediate unknown Verified 10/31/22 14:40 iodine Allergy Intermediate Unknown Verified 10/31/22 14:40 meperidine [Demerol] Allergy Intermediate Unknown Verified 10/31/22 14:40 Penicillins Allergy Intermediate Unknown Verified 10/31/22 14:40 propoxyphene [Darvon-N] Allergy Intermediate Unknown Verified 10/31/22 14:40 tramadol Allergy Intermediate Unknown Verified 10/31/22 14:40 Anesthesia Med Allergy Severe Difficulty Uncoded 10/31/22 14:40 Breathing Darvocet A500 Allergy Intermediate Unknown Uncoded 10/31/22 14:40 Review of Systems Review of Systems: All systems reviewed & are unremarkable except as noted in HPI and below PMFSH Past Medical History Medical History Acute bronchitis Arthritis, lumbar spine Bug bite Carotid artery stenosis Cellulitis Diverticulitis Fall HTN (hypertension) Hyperlipemia Nicotine dependence, cigarettes, in remission Osteoarthritis, knee Rectal bleeding UTI (urinary tract infection) Surgical History Surgical History Carotid stenosis, right H/O cataract removal with insertion of prosthetic lens (04/25/00) History of bladder repair surgery History of cholecystectomy History of hysterectomy Age 31 Hx of tonsillectomy Family History Family History Mother Family history of schizophrenia Father Heart failure Sibling Brain tumor Other Family history of malignant neoplasm Social History Social History Smoking packs per day: 1 Smoking cigarettes per day: 20.0 Years smoked: 63 Smoking pack-years: 63.00 Smoking status: Former smoker Smoking end date: 10/08/18 Alcohol intake: never Substance use: never Substance use type: does not use Living arrangements: alone Occupation/Education: retired Gender identity (if verbalized by the patient): Female Sexual Orientation (if Verbalized by the Patient): Straight or Heterosexual Spiritual care concerns: No Exam Narrative: White female mild distress.? Head normocephalic, atraumatic.? Eyes conjunctiva pink sclera nonicteric.? Extraocular movements are intact.? Ears externally
[2022-10-31 17:34] LABS: Hematocrit 37.9 % (35.0-42.0); Mean Corpuscular HGB Conc 31.7 g/dL (32.0-36.0); Mean Corpuscular Hemoglobin 30.3 pg (27.0-31.0); Mean Corpuscular Volume 95.7 fL (78.0-102.0); Mean Platelet Volume 10.3 fl (9.2-11.8); Platelet Count Result 342 K/mm3 (150-420); Red Blood Count 3.96 M/mm3 (4.20-5.40); Red Cell Distribution Width 12.5 % (11.6-14.4); White Blood Count 9.1 K/mm3 (4.8-10.8)
[2022-10-31 17:37] LABS: Appearance Urine Clear (Clear); Bilirubin Urine Negative (Negative); Blood Urine Negative (Negative); Color Urine Light Yellow (Yellow); Glucose Urine UA Negative (Negative); Ketones Urine Negative (Negative); Leukocyte Esterase Ur Negative LEU/UL (Negative); Nitrate Urine Negative (Negative); Protein Urine Negative (Negative); Specific Grav Ur <= 1.005 (1.010-1.020); Urobilinogen Urine 0.2 mg/dL (0.2-1.0)
[2022-10-31 17:40] LABS: Add Urine Microscopic? NO
[2022-10-31 17:51] LABS: Lactic Acid Reflex 0.7 mmol/L (0.4-2.0)
[2022-10-31 17:54] LABS: Alanine Aminotransferase 15 U/L (14-59); Albumin Level 3.4 g/dL (3.4-5.0); Alkaline Phosphatase 68 U/L (46-116); Anion Gap 11 mmol/L (8-16); Aspartate Amino Transferase < 10 U/L (15-37); Bilirubin,Total 0.3 mg/dL (0.00-1.00); Blood Urea Nitrogen 17 mg/dL (7-18); Calcium 8.9 mg/dL (8.5-10.1); Carbon Dioxide 28 mmol/L (21-32); Chloride 105 mmol/L (98-108); Estimated CRCL calculation 37 ml/min; Estimated Glomerular Filt Rate 58; Glucose 88 mg/dL (70-99); Lipase 23 U/L (16-77); Osmolality Calculated 298 mOsm/kg (285-295); Potassium 3.9 mmol/L (3.5-5.1); Sodium 144 mmol/L (136-145); Total Protein 8.1 g/dL (6.4-8.2)
--- NOTE | 2022-10-31 19:50 | PC.NURSE ---
Pt states that she was able to urinate after her CT scan on her own. Bladder scan shows 17 ml of urine in her bladder presently.
== END 2022-10-31 21:43 | disposition home or self-care (01) ==
PROVIDERS: Emergency Provider Emergency Medicine; PCP Nurse Practitioner Family
DX: S32.011D Stable burst fracture of first lumbar vertebra, subsequent encounter for fracture with routine healing (principal); I10 Essential (primary) hypertension; E78.5 Hyperlipidemia, unspecified; Z79.82 Long term (current) use of aspirin; Z87.891 Personal history of nicotine dependence; X58.XXXA Exposure to other specified factors, initial encounter
CPT/HCPCS: 36415; 74176; 80053; 81003; 83605; 83690; 85027; 96365; 99284; J0131

== ENCOUNTER 2022-11-03 12:03 | Emergency (ER) | payer MEDICARE, SELFPAY ==
--- NOTE | ~2022-11-03 | CT_ITS ---
EXAMINATION: CT lumbar spine wo con DATE: 11/03/2022 13:37 INDICATION: Low back pain. Urinary spasms and retention. Recent L1 burst fracture. TECHNIQUE: Computed tomography (CT) of the lumbar spine was performed without intravenous contrast. A utomated exposure control and iterative reconstruction technique were employed. The dose-length produ ct was 731.65 mGy-cm. COMPARISON: CT abdomen and pelvis dated 11/10/2022 and 10/21/2022 FINDINGS: Mild lumbar dextrocurvature. Transitional L5 segment which is sacralized on the right. Subacute L1 bu rst fracture with slight progression in now up to 80% central vertebral body height loss. No signific ant change in 4-5 mm retropulsion contributing to mild to moderate central canal stenosis at this lev el. Unchanged chronic L3 compression fracture with <20% posterior vertebral body height loss. Mild to moderate left-sided predominant disc height loss at L2-L3 and mild to moderate right-sided predomina nt disc height loss at L4-L5. Mild disc height loss at the intervening L3-L4 disc space. Moderate dis c height loss at L5-S1 which may be developmental given the partial sacralization of L5. Numerous div erticula along the visualized sigmoid colon without adjacent comparison to suggest diverticulitis. Th e uterus is not identified and has likely been surgically resected. Minimal likely physiologic free f luid in the deep pelvis. The following disc levels are specifically discussed: T11-T12: The disc does not extend beyond the endplate margin. There is moderate right and mild to mod erate left facet joint osteoarthritis. There is mild right neural foraminal stenosis. There is no ofe tral canal stenosis. T12-L1: The disc does not extend beyond the retropulsed cephalad posterior wall of the L1 vertebral b cherelle. There is right and mild to moderate left facet joint osteoarthritis. There is mild bilateral yayo ral foraminal stenosis. There is mild central canal stenosis. L1-L2: Disc is mildly bulging. There is mild right and mild to moderate left facet joint osteoarthrit is. There is mild to moderate bilateral neural foraminal stenosis. There is mild central canal stenos is. L2-L3: Disc is bulging. There is hypertrophy of the ligamentum flavum. There is moderate left and mil d to moderate right facet joint osteoarthritis. There is moderate bilateral, left greater than right neural foraminal stenosis. There is moderate central canal stenosis. L3-L4: Disc is mildly bulging. There is hypertrophy of the ligamentum flavum. There is moderate right facet joint osteoarthritis. There is fusion with severe hypertrophic change at the left facet joint. There is mild bilateral neural foraminal stenosis. There is mild central canal stenosis. L4-L5: Disc is bulging with right foraminal zone endplate osteophytes. There is severe bilateral face t joint osteoarthritis with likely early fusion posteriorly on both the left and right. There is mode rate to severe right and mild left neural foraminal stenosis. There is mild central canal stenosis. L5-S1: The disc does not extend beyond the endplate margin. There is fusion across the bilateral face t joints. There is no neural foraminal stenosis. There is no central canal stenosis. IMPRESSION: 1. Progression of now up to 80% central vertebral body height loss at a subacute L1 burst fracture. 4 -5 mm retropulsion contrast mild central canal stenosis level. 2. Moderate cervical spondylosis with moderate central canal stenosis at L2-L3. 3. Diverticulosis. Reviewed, dictated and finalized at location A. IMPRESSION: 1. Progression of now up to 80% central vertebral body height loss at a subacut e L1 burst fracture. 4-5 mm retropulsion contrast mild central canal stenosis l evel. 2. Moderate cervical spondylosis with moderate central canal
[2022-11-03 12:15] VITALS: BP 152/84; PULSE 93; RESP 18; TEMP 36.4; O2SAT 100
--- NOTE | 2022-11-03 12:24 | ED.BACK ---
HPI - Back Pain/Injury General Chief Complaint: Back Pain/Injury Stated Complaint: back pain Time Seen by Provider: 11/03/22 12:23 Source: patient Mode of arrival: EMS Limitations: no limitations History of Present Illness HPI Narrative: 82-year-old female, ex-smoker with a history of hypertension, dyslipidemia, arthritis had a fall around 1 year ago. Subsequently she has been having --worsening back pain and back spasms. She has been having difficulty ambulating. Her pain has gotten worse over the past few days which has prompted her to come to the ER. -- Chronic diarrhea for which she had a CT of the abdomen and pelvis on 10/31/2022. The the CT scan revealed acute moderate burst fracture at L1 with 4 mm retropulsion of the bony fragment along with marked urinary bladder distension suggestive of urinary retention. -- Decreased sensation on the right lower extremity. -- Retention of urine. Bladder scan revealed greater than 600 mL. The patient has had a history of bladder surgery. patient had an MRI on 12/16/2019 which reveals severe spondylosis without any evidence of L1 burst fracture MD elicited complaint: back pain Pertinent past history: prior back pain Onset (ago): month(s) Timing: constant Severity: moderate Similar Symptoms Previously: No Quality: aching Location: lumbar spine Radiation: right leg below the knee Exacerbating factors: none Relieving factors: none Associated symptoms: numbness, difficulty walking, increased urinary frequency and arthralgias Related Data Home Medications Medication Instructions Recorded Confirmed aspirin 81 mg tablet,delayed 81 mg PO DAILY 02/26/19 11/03/22 release (Enteric Coated Aspirin) metoprolol succinate 50 mg 50 mg PO BID 10/31/22 11/03/22 tablet,extended release 24 hr simvastatin 10 mg tablet 10 mg PO DAILY 10/31/22 11/03/22 Allergies Allergy/AdvReac Type Severity Reaction Status Date / Time codeine Allergy Intermediate unknown Verified 11/03/22 13:06 iodine Allergy Intermediate Unknown Verified 11/03/22 13:06 meperidine [Demerol] Allergy Intermediate Unknown Verified 11/03/22 13:06 Penicillins Allergy Intermediate Unknown Verified 11/03/22 13:06 propoxyphene [Darvon-N] Allergy Intermediate Unknown Verified 11/03/22 13:06 tramadol Allergy Intermediate Unknown Verified 11/03/22 13:06 Anesthesia Med Allergy Severe Difficulty Uncoded 11/03/22 13:06 Breathing Darvocet A500 Allergy Intermediate Unknown Uncoded 11/03/22 13:06 Review of Systems Review of Systems: All systems reviewed & are unremarkable except as noted in HPI and below Constitutional: Constitutional: Reports as per HPI Eyes: Eyes: Reports as per HPI ENT: Reports system reviewed and no additional complaints, except as documented and Reports as per HPI Cardiovascular: Cardiovascular: Reports as per HPI and Reports no additional cardiovascular complaints Respiratory: Respiratory: Reports as per HPI and Reports no additional respiratory complaints Gastrointestinal: Gastrointestinal: Reports as per HPI, Reports no additional gastrointestinal complaints and Reports diarrhea Genitourinary: Genitourinary: Reports no additional female genitourinary complaints and Reports nocturia Musculoskeletal: Musculoskeletal: Reports no additional musculoskeletal complaints, Reports as per HPI and Reports back pain Integumentary/Breasts: Skin/Breast: Reports system reviewed and no additional complaints, except as docu and Reports as per HPI Neurologic: Reports system reviewed and no additional complaints, except as documented and Reports as per HPI Comments: Chronic low back pain radiating to the right lower extremity, decreased sensation of right lower extremity Psychiatric: Psychiatric: Reports no additional psychiatric complaints and Reports as per HPI Endocrine: Endocrine: Reports no additional endocrine complaints and Reports as per HPI Hematologic/Lymphatic: Hematologic/Lymphatic: Reports no a
[2022-11-03 12:30] VITALS: BP 129/64
--- NOTE | 2022-11-03 13:15 | PC.NURSE ---
Patient to wheelchair with assist from [employer] for imaging off floor.
--- NOTE | 2022-11-03 13:35 | PC.NURSE ---
patient returned from imaging, per mechanical sound technician prior to imaging, patient attempted to void without success. ERP Dr. Puri aware.
--- NOTE | 2022-11-03 13:41 | PC.NURSE ---
Dr. Puri at patient bedside for update. Meal tray ordered per patient request and ERP okay.
--- NOTE | 2022-11-03 14:13 | PC.NURSE ---
Patient eating meal tray. Per ERP okay to allow patient to finish eating, then straight cath then have EMS come. Report phoned to [facility], RN spoke with OLU Leal.
[2022-11-03 14:30] VITALS: BP 155/78; PULSE 85; RESP 18; TEMP 36.9; O2SAT 100
--- NOTE | 2022-11-03 14:51 | PC.NURSE ---
patient straight catheterized per order, tolerated fairly well however had 3 back spasms during catheterization. ERP aware and med orders provided. Patient ready for transfer.
[2022-11-03 14:58] LABS: Appearance Urine Clear (Clear); Bilirubin Urine Negative (Negative); Blood Urine Negative (Negative); Color Urine Light Yellow (Yellow); Glucose Urine UA Negative (Negative); Ketones Urine Negative (Negative); Leukocyte Esterase Ur Negative LEU/UL (Negative); Nitrate Urine Negative (Negative); Protein Urine Negative (Negative); Specific Grav Ur <= 1.005 (1.010-1.020); Urobilinogen Urine 0.2 mg/dL (0.2-1.0); pH Urine 6.5 (5.0-8.0)
[2022-11-03 14:59] LABS: Add Urine Microscopic? NO
[2022-11-03] MEDS: KETOROLAC 30 MG/ML VIAL (*BKC) IM (15:06)
[2022-11-03 15:11] VITALS: BP 162/75; PULSE 84; RESP 20; O2SAT 98
== END 2022-11-03 15:21 | disposition short-term general hospital (02) ==
PROVIDERS: Emergency Provider Internal Medicine Critical Care Medicine; PCP Nurse Practitioner Family
DX: S32.011A Stable burst fracture of first lumbar vertebra, initial encounter for closed fracture (principal); G95.20 Unspecified cord compression; I10 Essential (primary) hypertension; E78.5 Hyperlipidemia, unspecified; Z87.891 Personal history of nicotine dependence; Z79.82 Long term (current) use of aspirin; W19.XXXA Unspecified fall, initial encounter
CPT/HCPCS: 72131; 81003; 96372; 99285; J1885

== ENCOUNTER 2022-11-30 11:25 | Emergency (ER) | payer MEDICARE, SELFPAY ==
--- NOTE | ~2022-11-30 | CT_ITS ---
EXAMINATION: CT brain wo con DATE: 11/30/2022 13:08 INDICATION: Bilateral lower extremity numbness TECHNIQUE: Computed tomography (CT) of the head was performed without intravenous contrast. Sagittal and coronal reconstructions were performed. The mA was adjusted according to patient size. Iterative reconstruction technique was employed. The dose-length product was 605.33 mGy-cm. COMPARISON: head CT dated 05/24/2014 FINDINGS: No acute intracranial hemorrhage, acute infarction or abnormal extra axial fluid collection. There is mild scattered white matter hypoattenuation consistent with chronic small vessel ischemic disease. S ymmetric prominence of the sulci consistent with mild age-appropriate diffuse cerebral volume loss. V entricles are normal and symmetric. No mass/mass effect. The orbits, paranasal sinuses and mastoid ai r cells are normal. IMPRESSION: 1. No acute intracranial process. 2. Age-related changes including mild diffuse volume loss and mild scattered white matter hypoattenua tion consistent with chronic small vessel ischemic disease. Reviewed, dictated and finalized at location L. IMPRESSION: 1. No acute intracranial process. 2. Age-related changes including mild diffuse volume loss and mild scattered wh ite matter hypoattenuation consistent with chronic small vessel ischemic diseas e.
--- NOTE | ~2022-11-30 | CT_ITS ---
EXAMINATION: CT thoracic lumbar wo con DATE: 11/30/2022 13:09 INDICATION: Bilateral lower limb numbness. TECHNIQUE: Computed tomography (CT) of the thoracic and lumbar spine was performed without intravenou s contrast. Automated exposure control and iterative reconstruction technique were employed. The dose -length product was 578.93 mGy-cm. COMPARISON: CT lumbar spine 11/03/2022 FINDINGS: CT THORACIC SPINE: There is mild scarring at the lung apices. There is mild emphysema. Bone alignment is normal. Vertebral body heights are normal. There is mildly decreased disc height from T2-T3 throu gh T6-T7. There are endplate osteophytes at all levels. There is multilevel mild to moderate facet misha int osteoarthritis. On the right, there is mild neural foraminal stenosis at T9-T10 and T10-T11. On t he left, there is mild neural foraminal stenosis at T10-T11. No central canal stenosis. CT LUMBAR SPINE: There is 8 degrees dextrocurvature of lumbar spine. There is a burst fracture of L1 with 3/5 loss of height and retropulsion of bone 4 mm into central spinal canal. There is moderately decreased disc height at L2-L3 and L4-L5. The following disc levels are specifically discussed: L1-L2: The disc is bulging. There is mild left facet joint osteoarthritis. There is mild bilateral ne ural foraminal stenosis. There is no central canal stenosis. L2-L3: The disc is bulging. There is moderate bilateral facet joint osteoarthritis. There is mild rig ht and moderate left neural foraminal stenosis. There is mild central canal stenosis. L3-L4: The disc is bulging. There is moderate right facet joint osteoarthritis. There is ankylosis of left facet joint with severe hypertrophy. There is mild bilateral neural foraminal stenosis. There i s no central canal stenosis. L4-L5: The disc is bulging. There is severe bilateral facet joint osteoarthritis. There is moderate r ight and mild left neural foraminal stenosis. There is mild central canal stenosis. L5-S1: The disc does not extend beyond the endplate margin. There is mild bilateral facet joint hyper trophy. There is no neural foraminal stenosis. There is no central canal stenosis. IMPRESSION: 1. Subacute L3 burst fracture, stable from 11/03/2022. 2. Moderate lumbar spondylosis and mild thoracic spondylosis. Reviewed, dictated and finalized at location A.
[2022-11-30 11:25] VITALS: BP 140/79; PULSE 94; RESP 18; TEMP 36.5; O2SAT 98
--- NOTE | 2022-11-30 11:51 | PC.NURSE ---
PT HAS 2 HEALING INCISIONS TO BACK. ONE NOTED TO MID BACK AND ONE NOTED TO LOWER BACK. NO REDNESS, DRAINAGE, HEAT NOTED.
--- NOTE | 2022-11-30 12:26 | PC.NURSE ---
PT HAS BEEN REPOSITIONED ONTO LEFT SIDE WITH PILLOW BETWEEN HER LEGS FOR COMFORT. PT IS AWAITING ERP ASSESSMENT AT THIS TIME. WILL CONTINUE TO MONITOR.
--- NOTE | 2022-11-30 12:44 | ED.BACK ---
HPI - Back Pain/Injury General Chief Complaint: Extremity Problem,Nontraumatic Stated Complaint: leg numbness/PO surgery Source: patient Mode of arrival: EMS Limitations: no limitations History of Present Illness HPI Narrative: patient is an 82-year-old female with surgery in the past month to her lumbar spine done at [facility]. She has been doing physical therapy without problems. Patient woke up this morning having some numbness of both legs feet and to the level of both knees as well as her right hand. She did not call the surgeon and she came directly to the emergency room. last known well was unknown as patient awoke with symptoms this morning. MD elicited complaint: other ( Lumbar spine surgery 1 month ago) Pertinent past history: prior back pain Onset (ago): hour(s) Timing: constant Severity: moderate Similar Symptoms Previously: No Quality: tingling and spasming Radiation: left leg below the knee and right leg below the knee Exacerbating factors: none Relieving factors: none Associated symptoms: denies other symptoms Work related injury: No Related Data Home Medications Medication Instructions Recorded Confirmed aspirin 81 mg tablet,delayed 81 mg PO DAILY 02/26/19 11/30/22 release (Enteric Coated Aspirin) cholecalciferol (vitamin D3) 2,000 unit PO DAILY 11/30/22 11/30/22 gabapentin 300 mg tablet 300 mg PO BID 11/30/22 11/30/22 loratadine 10 mg tablet 10 mg PO DAILY 11/30/22 11/30/22 methocarbamol 500 mg tablet 500 mg PO QID PRN Spasms 11/30/22 11/30/22 metoprolol tartrate 25 mg PO DAILY 11/30/22 11/30/22 pantoprazole 40 mg tablet,delayed 40 mg PO QAM 11/30/22 11/30/22 release Allergies Allergy/AdvReac Type Severity Reaction Status Date / Time codeine Allergy Intermediate unknown Verified 11/30/22 11:34 iodine Allergy Intermediate Unknown Verified 11/30/22 11:34 meperidine [Demerol] Allergy Intermediate Unknown Verified 11/30/22 11:34 Penicillins Allergy Intermediate Unknown Verified 11/30/22 11:34 propoxyphene [Darvon-N] Allergy Intermediate Unknown Verified 11/30/22 11:34 tramadol Allergy Intermediate Unknown Verified 11/30/22 11:34 Anesthesia Med Allergy Severe Difficulty Uncoded 11/03/22 13:06 Breathing Darvocet A500 Allergy Intermediate Unknown Uncoded 11/03/22 13:06 Review of Systems Review of Systems: All systems reviewed & are unremarkable except as noted in HPI and below Constitutional: Constitutional: Reports no additional constitutional complaints Eyes: Eyes: Reports no additional eye complaints ENT: Reports system reviewed and no additional complaints, except as documented Cardiovascular: Cardiovascular: Reports no additional cardiovascular complaints Respiratory: Respiratory: Reports no additional respiratory complaints Gastrointestinal: Gastrointestinal: Reports no additional gastrointestinal complaints Genitourinary: Genitourinary: Reports no additional female genitourinary complaints Musculoskeletal: Musculoskeletal: Reports no additional musculoskeletal complaints Integumentary/Breasts: Skin/Breast: Reports system reviewed and no additional complaints, except as docu Neurologic: Reports system reviewed and no additional complaints, except as documented Psychiatric: Psychiatric: Reports no additional psychiatric complaints Endocrine: Endocrine: Reports no additional endocrine complaints Hematologic/Lymphatic: Hematologic/Lymphatic: Reports no additional hematologic/lymphatic complaints Allergic/Immunologic: Allergic/Immunologic: Reports no additional allergic/immunologic complaints PMFSH Past Medical History Medical History Acute bronchitis Arthritis, lumbar spine Bug bite Carotid artery stenosis Cellulitis Diverticulitis Fall HTN (hypertension) Hyperlipemia Nicotine dependence, cigarettes, in remission Osteoarthritis, knee Rectal bleeding UTI (urinary tract infection) Surgical History Alpesh
[2022-11-30 13:32] LABS: Appearance Urine Clear (Clear); Bilirubin Urine Negative (Negative); Blood Urine Negative (Negative); Color Urine Light Yellow (Yellow); Glucose Urine UA Negative (Negative); Ketones Urine 1+ (Negative); Leukocyte Esterase Ur Negative LEU/UL (Negative); Nitrate Urine Negative (Negative); Protein Urine Negative (Negative); Specific Grav Ur <= 1.005 (1.010-1.020); Urobilinogen Urine 0.2 mg/dL (0.2-1.0)
[2022-11-30 13:37] LABS: Add Urine Microscopic? YES; Bacteria Urine Rare /hpf; RBC Urine None seen /hpf (0-2); Squamous Epithelial Cell Urine Rare /hpf (Few); WBC Urine None seen /hpf (0-3)
[2022-11-30] MEDS: BACLOFEN 5 MG TABLET PO (14:31)
[2022-11-30] MEDS: methylPREDNISolone SOD SUCC 125 MG VIAL IV PUSH (14:31)
[2022-11-30 14:32] VITALS: BP 137/66; PULSE 78; RESP 18; O2SAT 99
--- NOTE | 2022-11-30 14:41 | PC.NURSE ---
pt up to chair with assistance, slow steady gait noted. pt reports she is not sure she feels safe with a walker. erp is aware. will continue to monitor.
--- NOTE | 2022-11-30 14:54 | PC.NURSE ---
CARE MANAGEMENT AT BEDSIDE AT THIS TIME. WILL CONTINUE TO MONITOR.
--- NOTE | 2022-11-30 15:24 | PC.NURSE ---
CARE COORDINATION WAS ABLE TO LOCATE PT A WHEELCHAIR FOR HER HOME USE. PT DECLINED ANY ADMISSION OR TRANSFER TO ANOTHER FACILITY. PT TO BE DC HOME.
--- NOTE | 2022-11-30 15:28 | PCCCNOTE ---
Met with pt in ED. Pt sitting up in chair. She states that her feet and rt hand feels numb. ED concerned that pt will fall at home and she lives alone. Requesting help with wheelchair. Spoke to pt and she just was released from rehab last after being in rehab for 4+ weeks. She was walking good and no numbness of feet until this morning. W in [place] has a wheelchair the pt can borrow. Pt is calling a friend to pick her up and she said she can have a friend bean picker wheelchair from the [employer]. Informed pt that her NET TRAINER could possibly order her a wheelchair from [facility] if medical necessity met or pt could order one from [facility]. Pt states she could afford to purchase from [facility] if she needs for long time but does not anticipate needing it shelter. Talked to pt about living with her daughter but she lives in [place] and pt states it is to hot. Talked about assisted living but pt likes living in her senior housing and it costs her less than $400/month. Pt does get home health services.
--- NOTE | 2022-11-30 17:37 | PC.NURSE ---
PT WAS FED A SANDWICH TRAY, SOMEONE PICKED UP WC FROM [facility] AND DELIVERED IT TO THE ER FOR THE PT.
== END 2022-11-30 17:38 | disposition home or self-care (01) ==
PROVIDERS: Emergency Provider Emergency Medicine; PCP Nurse Practitioner Family
DX: M54.16 Radiculopathy, lumbar region (principal); I10 Essential (primary) hypertension; Z79.82 Long term (current) use of aspirin; Z87.891 Personal history of nicotine dependence
CPT/HCPCS: 70450; 72128; 72131; 81001; 96374; 99284; A9270; J2930

== ENCOUNTER 2023-04-04 12:25 | Emergency (ER) | payer MEDICARE, SELFPAY ==
[2023-04-04 12:25] VITALS: BP 115/65; PULSE 105; RESP 18; TEMP 37.1; O2SAT 94
[2023-04-04 12:43] VITALS: BP 115/65; PULSE 105; RESP 18; TEMP 37.1; O2SAT 94
[2023-04-04] MEDS: BACLOFEN 10 MG TABLET PO (12:56)
[2023-04-04] MEDS: KETOROLAC 30 MG/ML VIAL (*BKC) IM (12:56)
--- NOTE | 2023-04-04 13:17 | ED.GENADULT ---
HPI - General Adult General Chief complaint: Back Pain/Injury Stated complaint: back pain Time Seen by Provider: 04/04/23 12:39 History of Present Illness HPI narrative: 82yo woman with chronic back pain, multiple flareups since October, presents with severe low back pain, right worse than left, radiating down both legs, starting 3 days ago. Previously was taking Baclofen 5 mg TID and says she ran out of this and was switched to Methocarbamol 500 mg. No new trauma. No fevers, chills, numbness, weakness, retention, or incontinence. Related Data Home Medications Medication Instructions Recorded Confirmed aspirin 81 mg tablet,delayed 81 mg PO DAILY 02/26/19 04/04/23 release (Enteric Coated Aspirin) cholecalciferol (vitamin D3) 2,000 unit PO DAILY 11/30/22 04/04/23 loratadine 10 mg tablet 10 mg PO DAILY 11/30/22 04/04/23 Allergies Allergy/AdvReac Type Severity Reaction Status Date / Time codeine Allergy Intermediate unknown Verified 04/04/23 12:38 iodine Allergy Intermediate Unknown Verified 04/04/23 12:38 meperidine [Demerol] Allergy Intermediate Unknown Verified 04/04/23 12:38 Penicillins Allergy Intermediate Unknown Verified 04/04/23 12:38 propoxyphene [Darvon-N] Allergy Intermediate Unknown Verified 04/04/23 12:38 tramadol Allergy Intermediate Unknown Verified 04/04/23 12:38 Anesthesia Med Allergy Severe Difficulty Uncoded 11/03/22 13:06 Breathing Darvocet A500 Allergy Intermediate Unknown Uncoded 11/03/22 13:06 Review of Systems Review of Systems: All systems reviewed & are unremarkable except as noted in HPI and below Constitutional: Constitutional: Denies chills and Denies fever(s) ENT: Denies dysphagia Cardiovascular: Cardiovascular: Denies chest pain Respiratory: Respiratory: Denies dyspnea Gastrointestinal: Gastrointestinal: Denies abdominal pain PMFSH Past Medical History Medical History Acute bronchitis Arthritis, lumbar spine Bug bite Carotid artery stenosis Cellulitis Diverticulitis Fall HTN (hypertension) Hyperlipemia Nicotine dependence, cigarettes, in remission Osteoarthritis, knee Rectal bleeding UTI (urinary tract infection) Surgical History Surgical History Carotid stenosis, right H/O cataract removal with insertion of prosthetic lens (04/25/00) History of bladder repair surgery History of cholecystectomy History of hysterectomy Age 31 Hx of tonsillectomy Family History Family History Mother Family history of schizophrenia Father Heart failure Sibling Brain tumor Other Family history of malignant neoplasm Social History Social History Smoking packs per day: 1 Smoking cigarettes per day: 20.0 Years smoked: 63 Smoking pack-years: 63.00 Smoking status: Former smoker Smoking end date: 10/08/18 Alcohol intake: never Substance use: never Substance use type: does not use Living arrangements: alone Occupation/Education: retired Gender identity (if verbalized by the patient): Female Sexual Orientation (if Verbalized by the Patient): Straight or Heterosexual Spiritual care concerns: No Exam Const: General: healthy appearing and no acute distress Nutritional Appearance: well nourished Eyes: Conjunctivae: conjunctivae normal Resp: Effort & Inspection: normal respiratory effort Auscultation: clear to auscultation bilaterally Cardio: Rate: regular rate Rhythm: regular rhythm Heart sounds: no murmurs GI: Inspection: non-distended GI Palp: Yes Soft to palpation and No Tenderness to palpation present (GI) Back/Spine/Pelvis: Other: no midline spinal tenderness; paraspinal muscles are in spasm Skin: General skin exam: normal color, no jaundice and no pallor Neuro: Gen
[2023-04-04 13:28] VITALS: BP 139/77; PULSE 84; RESP 15; TEMP 37; O2SAT 97
== END 2023-04-04 13:40 | disposition home or self-care (01) ==
PROVIDERS: Emergency Provider Emergency Medicine; PCP Family Medicine
DX: M62.830 Muscle spasm of back (principal); M54.42 Lumbago with sciatica, left side; M54.41 Lumbago with sciatica, right side; I10 Essential (primary) hypertension; E78.5 Hyperlipidemia, unspecified; Z79.82 Long term (current) use of aspirin; Z87.891 Personal history of nicotine dependence
CPT/HCPCS: 96372; 99284; A9270; J1100; J1885

== ENCOUNTER 2023-04-06 10:56 | Emergency (ER) | payer MEDICARE, SELFPAY ==
[2023-04-06] VITALS (16 sets, daily range): BP systolic 116–146; BP diastolic 53–92; PULSE 76–113; RESP 15–20; TEMP 37.1; O2SAT 93–100
--- NOTE | 2023-04-06 11:50 | ED.NAVMDI ---
HPI - Nausea/Vomiting/Diarrhea General Chief complaint: Nausea/Vomiting/Diarrhea Stated complaint: diarreah Time Seen by Provider: 04/06/23 11:42 Source: patient Mode of arrival: ambulatory Limitations: no limitations History of Present Illness HPI Narrative: 82-year-old female, ex-smoker with a history of hypertension, dyslipidemia, arthritis, lumbar fracture with lumbar radiculopathy status post back surgery in November of 2022, chronic diarrhea, diverticulitis presents to the ER with -- diarrhea for the past 1 week. stool was noted to be black. No vomiting. No hematemesis. patient had 2 episodes of diarrhea which started at 9:45 a.m.. -- Generalized weakness No abdominal pain Patient does not have a prior episode of upper or lower GI bleeding. The patient does not remember having had a colonoscopy or an upper GI endoscopy. MD elicited complaint: diarrhea Onset (ago): hour(s) ( Started 2 hours ago) Description of diarrhea: black tarry Associated nausea: No Associated abdominal pain: No Location of pain: none Exacerbating factors: none Relieving factors: none Related Data Home Medications Medication Instructions Recorded Confirmed aspirin 81 mg tablet,delayed 81 mg PO DAILY 02/26/19 04/04/23 release (Enteric Coated Aspirin) cholecalciferol (vitamin D3) 2,000 unit PO DAILY 11/30/22 04/04/23 loratadine 10 mg tablet 10 mg PO DAILY 11/30/22 04/04/23 Allergies Allergy/AdvReac Type Severity Reaction Status Date / Time codeine Allergy Intermediate unknown Verified 04/04/23 12:38 iodine Allergy Intermediate Unknown Verified 04/04/23 12:38 meperidine [Demerol] Allergy Intermediate Unknown Verified 04/04/23 12:38 Penicillins Allergy Intermediate Unknown Verified 04/04/23 12:38 propoxyphene [Darvon-N] Allergy Intermediate Unknown Verified 04/04/23 12:38 tramadol Allergy Intermediate Unknown Verified 04/04/23 12:38 Anesthesia Med Allergy Severe Difficulty Uncoded 11/03/22 13:06 Breathing Darvocet A500 Allergy Intermediate Unknown Uncoded 11/03/22 13:06 Review of Systems Constitutional: Constitutional: Reports as per HPI and Reports no additional constitutional complaints Eyes: Eyes: Reports as per HPI and Reports no additional eye complaints ENT: Reports system reviewed and no additional complaints, except as documented and Reports as per HPI Cardiovascular: Cardiovascular: Reports as per HPI and Reports no additional cardiovascular complaints Respiratory: Respiratory: Reports as per HPI and Reports no additional respiratory complaints Gastrointestinal: Gastrointestinal: Reports as per HPI, Reports no additional gastrointestinal complaints and Reports diarrhea Comments: black stool Genitourinary: Genitourinary: Reports no additional female genitourinary complaints Musculoskeletal: Musculoskeletal: Reports no additional musculoskeletal complaints, Reports as per HPI and Reports back pain Comments: chronic low back pain Integumentary/Breasts: Skin/Breast: Reports system reviewed and no additional complaints, except as docu and Reports as per HPI Neurologic: Reports system reviewed and no additional complaints, except as documented and Reports as per HPI Psychiatric: Psychiatric: Reports no additional psychiatric complaints and Reports as per HPI Endocrine: Endocrine: Reports no additional endocrine complaints and Reports as per HPI Hematologic/Lymphatic: Hematologic/Lymphatic: Reports no additional hematologic/lymphatic complaints and Reports as per HPI Allergic/Immunologic: Allergic/Immunologic: Reports no additional allergic/immunologic complaints and Reports as per HPI [facility] Past Medical History Medical History Acute bronchitis Arthritis, lumbar spine Bug bite Carotid artery stenosis Cellulitis Diverticulitis Fall HTN (hypertension) Hyperlipemia Nicotine dependence, cigarettes, in remission Osteoarthritis, knee Rectal bleeding
[2023-04-06 12:07] LABS: Occult Blood Positive (Negative)
[2023-04-06 12:21] LABS: Basophils Absolute Auto 0.03 K/mm3 (0.00-0.10); Basophils Percent Auto 0.3 % (0.0-1.0); Eosinophils Absolute Auto 0.02 K/mm3 (0.02-0.50); Eosinophils Percent Auto 0.2 % (1.0-6.0); Hematocrit 31.5 % (35.0-42.0); Hemoglobin 10.1 g/dL (11.7-13.8); Immature Granulocyte Absolute 0.02 K/mm3 (0.00-0.00); Immature Granulocyte Percent A 0.2 % (0.0-0.0); Lymphocytes Percent Auto 14.6 % (18.0-42.0); Mean Corpuscular HGB Conc 32.1 g/dL (32.0-36.0); Mean Corpuscular Hemoglobin 30.3 pg (27.0-31.0); Mean Corpuscular Volume 94.6 fL (78.0-102.0); Mean Platelet Volume 10.3 fl (9.2-11.8); Monocytes Absolute Auto 0.91 K/mm3 (0.10-0.90); Monocytes Percent Auto 9.5 % (2.0-11.0); Neutrophils Absolute Auto 7.2 K/mm3 (1.7-7.2); Neutrophils Percent Auto 75.2 % (50.0-70.0); Platelet Count Result 218 K/mm3 (150-420); Red Blood Count 3.33 M/mm3 (4.20-5.40); White Blood Count 9.6 K/mm3 (4.8-10.8)
[2023-04-06 12:35] LABS: INR 0.9; Partial Thromboplastin Time 24.5 SEC (23.90-30.70); Prothrombin Time 10.4 Seconds (9.50-12.10)
[2023-04-06 12:37] LABS: Alanine Aminotransferase 16 U/L (14-59); Albumin Level 3.7 g/dL (3.4-5.0); Alkaline Phosphatase 53 U/L (46-116); Anion Gap 6 mmol/L (8-16); Aspartate Amino Transferase 14 U/L (15-37); Bilirubin,Total 0.4 mg/dL (0.00-1.00); Blood Urea Nitrogen 66 mg/dL (7-18); Calcium 8.6 mg/dL (8.5-10.1); Carbon Dioxide 29 mmol/L (21-32); Chloride 101 mmol/L (98-108); Estimated CRCL calculation 29 ml/min; Estimated Glomerular Filt Rate 49; Glucose 96 mg/dL (70-99); Lactic Acid Reflex 1.5 mmol/L (0.4-2.0); Lipase 36 U/L (16-77); Osmolality Calculated 301 mOsm/kg (285-295); Potassium 4.5 mmol/L (3.5-5.1); Sodium 136 mmol/L (136-145); Total Protein 6.7 g/dL (6.4-8.2); Troponin I 19.7 ng/L (0.00-60.4)
[2023-04-06] MEDS: PANTOPRAZOLE SODIUM IV 40 MG VIAL 80 MG IV PUSH (13:44)
== END 2023-04-06 14:40 | disposition short-term general hospital (02) ==
PROVIDERS: Emergency Provider Internal Medicine Critical Care Medicine; PCP Family Medicine
DX: K92.2 Gastrointestinal hemorrhage, unspecified (principal); D62 Acute posthemorrhagic anemia; I10 Essential (primary) hypertension; E78.5 Hyperlipidemia, unspecified; Z87.891 Personal history of nicotine dependence
CPT/HCPCS: 36415; 80053; 82272; 83605; 83690; 84484; 85025; 85610; 85730; 96374; 99284; C9113

== ENCOUNTER 2023-04-14 10:41 | Outpatient (NON) | payer MEDICARE, SELFPAY ==
[2023-04-14 10:54] LABS: Basophils Absolute Auto 0.03 K/mm3 (0.00-0.10); Basophils Percent Auto 0.4 % (0.0-1.0); Eosinophils Absolute Auto 0.12 K/mm3 (0.02-0.50); Eosinophils Percent Auto 1.7 % (1.0-6.0); Hematocrit 30.6 % (35.0-42.0); Hemoglobin 9.8 g/dL (11.7-13.8); Immature Granulocyte Absolute 0.03 K/mm3 (0.00-0.00); Immature Granulocyte Percent A 0.4 % (0.0-0.0); Lymphocytes Absolute Auto 1.15 K/mm3 (1.10-4.50); Lymphocytes Percent Auto 16.1 % (18.0-42.0); Mean Corpuscular Hemoglobin 30.2 pg (27.0-31.0); Mean Corpuscular Volume 94.4 fL (78.0-102.0); Mean Platelet Volume 10.5 fl (9.2-11.8); Monocytes Absolute Auto 0.76 K/mm3 (0.10-0.90); Monocytes Percent Auto 10.6 % (2.0-11.0); Neutrophils Absolute Auto 5.1 K/mm3 (1.7-7.2); Neutrophils Percent Auto 70.8 % (50.0-70.0); Platelet Count Result 357 K/mm3 (150-420); Red Blood Count 3.24 M/mm3 (4.20-5.40); Red Cell Distribution Width 14.6 % (11.6-14.4); White Blood Count 7.2 K/mm3 (4.8-10.8)
[2023-04-14 11:08] LABS: Hemoglobin A1C 5.5 % (<5.7)
[2023-04-14 11:27] LABS: Alanine Aminotransferase 13 U/L (14-59); Alkaline Phosphatase 59 U/L (46-116); Anion Gap 12 mmol/L (8-16); Aspartate Amino Transferase 17 U/L (15-37); Bilirubin,Total 0.4 mg/dL (0.00-1.00); Blood Urea Nitrogen 20 mg/dL (7-18); Calcium 9.4 mg/dL (8.5-10.1); Carbon Dioxide 26 mmol/L (21-32); Chloride 99 mmol/L (98-108); Cholesterol 154 mg/dL (0-200); Estimated Glomerular Filt Rate 35; Glucose 101 mg/dL (70-99); HDL Direct 66 mg/dL (40-60); LDL Cholesterol Calculated 74 mg/dL (<130); Magnesium 1.5 mg/dL (1.8-2.4); Osmolality Calculated 286 mOsm/kg (285-295); Sodium 137 mmol/L (136-145); Total Protein 6.8 g/dL (6.4-8.2); Triglycerides 72 mg/dL (0-150)
[2023-04-17 19:00] LABS: Vitamin D 25 Hydroxy 30 ng/mL (30-100)
== END 2023-04-14 10:42 | disposition home or self-care (01) ==
LOC: CHSLAB 10:43
PROVIDERS: Visit Provider Nurse Practitioner Family
DX: E78.5 Hyperlipidemia, unspecified (principal); Z13.6 Encounter for screening for cardiovascular disorders; E11.9 Type 2 diabetes mellitus without complications; K92.2 Gastrointestinal hemorrhage, unspecified; Z79.899 Other long term (current) drug therapy
CPT/HCPCS: 36415; 80053; 80061; 82306; 83036; 83735; 85025

== ENCOUNTER 2023-05-10 14:06 | Outpatient (CLI) | payer MEDICARE, SELFPAY ==
--- NOTE | 2023-05-10 14:18 | ECG_ITS ---
Measurements Intervals [place] Rate: 150 P: NE: 0 QRS: 90 QRSD: 71 T: 17 QT: 261 QTc: 413 Interpretive Statements ATRIAL FIBRILLATION WITH RAPID VENTRICULAR RESPONSE NONSPECIFIC ST-T WAVE ABNORMALITY- INFERIOR LEADS ABNORMAL ECG COMPARED TO ECG 10/21/2022 18:53:16 ATRIAL FIBRILLATION NOW PRESENT Electronically Signed On 05-10-2023 14:27:46 EMERGENCY SERVICE WORKER by De Snowden D.O.
== END 2023-05-10 14:07 | disposition home or self-care (01) ==
LOC: CHSCARD 14:08
PROVIDERS: PCP Nurse Practitioner Family; Visit Provider Nurse Practitioner
DX: K92.2 Gastrointestinal hemorrhage, unspecified (principal); R00.0 Tachycardia, unspecified; R94.31 Abnormal electrocardiogram [ECG] [EKG]; I48.91 Unspecified atrial fibrillation
CPT/HCPCS: 93005

== ENCOUNTER 2023-05-10 14:29 | Emergency (ER) | payer MEDICARE, SELFPAY ==
[2023-05-10] VITALS (41 sets, daily range): BP systolic 99–145; BP diastolic 59–101; PULSE 115–188; RESP 17–30; TEMP 36.4; O2SAT 90–98
--- NOTE | ~2023-05-10 | XR_ITS ---
XR chest 1V portable DATE: 05/10/2023 14:42 INDICATION: Weakness TECHNIQUE: Portable AP chest on 05/10/2023 at 1446 hours COMPARISON: 10/08/2021 2 view chest 04/07/2016, 11/28/2014 2 view chest radiographic examinations FINDINGS: Heart size is not optimally evaluated on AP projection but is likely within normal limits. There is aortic calcification. No hilar or mediastinal enlargement. Right apical capping. Cannot exclude a very slight left apical pneumothorax. Bilateral hyperinflation. There is minimal infiltrate or atelectasis at the lung bases. There is diffuse osteopenia. IMPRESSION: Cannot exclude slight left apical pneumothorax. Bilateral hyperinflation Minimal infiltrate and/or atelectasis at the lung bases Aortic calcification Osteopenia Reviewed, dictated and finalized at location L. RNET PROGRAMMER
--- NOTE | 2023-05-10 14:34 | ED.ARRPALP ---
HPI - Arrhythmia/Palpitations General Chief Complaint: Arrhythmia/Palpitations Stated Complaint: AFIB Time Seen by Provider: 05/10/23 14:33 History of Present Illness HPI narrative: Pt has felt fatigued for weeks but has not had CP or SOB. Pt has noticed her heart beating irregularly for weeks as well. Pt went to cardiac rehab this morning and was found to be in a fib with rvr rate 150. Related Data Home Medications Medication Instructions Recorded Confirmed cholecalciferol (vitamin D3) 2,000 unit PO DAILY 11/30/22 05/10/23 loratadine 10 mg tablet 10 mg PO DAILY 11/30/22 05/10/23 Allergies Allergy/AdvReac Type Severity Reaction Status Date / Time codeine Allergy Intermediate unknown Verified 05/10/23 14:38 iodine Allergy Intermediate Unknown Verified 05/10/23 14:38 meperidine [Demerol] Allergy Intermediate Unknown Verified 05/10/23 14:38 Penicillins Allergy Intermediate Unknown Verified 05/10/23 14:38 propoxyphene [Darvon-N] Allergy Intermediate Unknown Verified 05/10/23 14:38 tramadol Allergy Intermediate Unknown Verified 05/10/23 14:38 Anesthesia Med Allergy Severe Difficulty Uncoded 05/10/23 14:38 Breathing Darvocet A500 Allergy Intermediate Unknown Uncoded 05/10/23 14:38 Review of Systems Review of Systems: All systems reviewed & are unremarkable except as noted in HPI and below PMFSH Past Medical History Medical History (Updated 05/10/23 @ 15:49 by Vanessa Pacheco III, DO) Acute bronchitis Altered bowel habits Arthritis, lumbar spine Bug bite Carotid artery stenosis Cellulitis Diverticulitis Duodenal ulcer disease Fall HTN (hypertension) Hyperlipemia Nicotine dependence, cigarettes, in remission Osteoarthritis, knee Rapid or irregular heartbeat Rectal bleeding UTI (urinary tract infection) Surgical History Surgical History Carotid stenosis, right H/O cataract removal with insertion of prosthetic lens (04/25/00) History of bladder repair surgery History of cholecystectomy History of hysterectomy Age 31 Hx of tonsillectomy Family History Family History Mother Family history of schizophrenia Father Heart failure Sibling Brain tumor Other Family history of malignant neoplasm Social History Social History Smoking packs per day: 1 Smoking cigarettes per day: 20.0 Years smoked: 63 Smoking pack-years: 63.00 Smoking status: Former smoker Smoking end date: 10/08/18 Alcohol intake: never Substance use: never Substance use type: does not use Living arrangements: alone Occupation/Education: retired Gender identity (if verbalized by the patient): Female Sexual Orientation (if Verbalized by the Patient): Straight or Heterosexual Spiritual care concerns: No Exam Const: General: healthy appearing, no acute distress and alert Nutritional Appearance: well nourished Orientation/consciousness: patient oriented x3 Limitations: no limitations Resp: Effort & Inspection: normal respiratory effort Auscultation: clear to auscultation bilaterally Cardio: Rate: tachycardic Rhythm: abnormal rhythm GI: GI Palp: Yes Soft to palpation Auscultation: normal bowel sounds Skin: General skin exam: normal color Wounds: no wounds Neuro: General: patient oriented x3, moves all extremities, no meningeal signs, no focal motor deficits and CN's II-XI intact bilaterally Speech: normal speech Extrem: General: normal to inspection and no clubbing, cyanosis or edema Psych: Mental Status: mental status grossly normal Affect: normal affect Attitude: cooperative Course Vital Signs Vital signs: Vital Signs Temperature 97.5 F L 05/10/23 14:29 Pulse Rate 180 H 05/10/23 14:29 Respiratory Rate 26 H 05/10/23 14:29 Blood Pressure 145/101 H 05/10/23 14:29 Pulse Oxi
[2023-05-10 14:49] LABS: Basophils Absolute Auto 0.04 K/mm3 (0.00-0.10); Basophils Percent Auto 0.6 % (0.0-1.0); Eosinophils Absolute Auto 0.07 K/mm3 (0.02-0.50); Hematocrit 37.9 % (35.0-42.0); Hemoglobin 11.8 g/dL (11.7-13.8); Immature Granulocyte Absolute 0.02 K/mm3 (0.00-0.00); Immature Granulocyte Percent A 0.3 % (0.0-0.0); Lymphocytes Absolute Auto 1.21 K/mm3 (1.10-4.50); Lymphocytes Percent Auto 17.9 % (18.0-42.0); Mean Corpuscular HGB Conc 31.1 g/dL (32.0-36.0); Mean Corpuscular Hemoglobin 29.8 pg (27.0-31.0); Mean Corpuscular Volume 95.7 fL (78.0-102.0); Mean Platelet Volume 10.4 fl (9.2-11.8); Monocytes Absolute Auto 0.69 K/mm3 (0.10-0.90); Monocytes Percent Auto 10.2 % (2.0-11.0); Neutrophils Absolute Auto 4.7 K/mm3 (1.7-7.2); Platelet Count Result 266 K/mm3 (150-420); Red Blood Count 3.96 M/mm3 (4.20-5.40); Red Cell Distribution Width 14.7 % (11.6-14.4); White Blood Count 6.8 K/mm3 (4.8-10.8)
[2023-05-10] MEDS: dilTIAZem HCl INJ 25 MG/5 ML VIAL 10 MG IV PUSH (14:52)
[2023-05-10] MEDS: dilTIAZem 100 MG/100 ML 100 MG/100 ML BAG IV CONT (14:53)
[2023-05-10] MEDS: SODIUM CHLORIDE 0.9% IV 500 ML 999 ML IV CONT (14:56)
[2023-05-10 15:03] LABS: Partial Thromboplastin Time 28.9 SEC (23.90-30.70); Prothrombin Time 11.4 Seconds (9.50-12.10)
[2023-05-10 15:12] LABS: Alanine Aminotransferase 25 U/L (14-59); Albumin Level 4.3 g/dL (3.4-5.0); Alkaline Phosphatase 63 U/L (46-116); Anion Gap 11 mmol/L (8-16); Aspartate Amino Transferase 23 U/L (15-37); Bilirubin,Total 0.6 mg/dL (0.00-1.00); Blood Urea Nitrogen 14 mg/dL (7-18); Carbon Dioxide 27 mmol/L (21-32); Chloride 99 mmol/L (98-108); Estimated CRCL calculation 28 ml/min; Estimated Glomerular Filt Rate 48; Glucose 108 mg/dL (70-99); NT Pro B Type Natriuretic Pept 5138 pg/mL (0-450); Osmolality Calculated 285 mOsm/kg (285-295); Sodium 137 mmol/L (136-145); Total Protein 7.3 g/dL (6.4-8.2); Troponin I 25.9 ng/L (0.00-60.4)
--- NOTE | 2023-05-10 15:12 | PC.NURSE ---
PT HR IS 136, ERP AWARE. NAD NOTED. PT DENIES ANY COMPLAINTS. ICE CHIPS PROVIDED. FRIEND AT BEDSIDE. WILL CONTINUE TO MONITOR.
--- NOTE | 2023-05-10 15:52 | PC.NURSE ---
FRIEND HAS LEFT. PT IS AWAITING RETURN CALL FROM [facility] FOR TRANSFER AT THIS TIME. PT AND FRIEND ARE AWARE OF PLAN OF CARE. NAD. PT IS REPOSITIONED AT THIS TIME. WILL CONTINUE TO MONITOR.
--- NOTE | 2023-05-10 16:47 | PC.NURSE ---
PT HAS BEEN SPEAKING WITH DAUGHTER ON CELL PHONE. PT IS AWAITING ROOM TO BE CLEANED AT [place] FOR ROOM ASSIGNMENT. AT 1600, DUL[place], PRICER BAGGER CALLED TO REPORT SHE WOULD NOTIFY THIS RN WHEN ROOM WAS READY AND SHE WOULD ASSIGN THE ROOM AFTER IT WAS CLEAN. WILL CONTINUE TO MONITOR.
--- NOTE | 2023-05-10 17:55 | PC.NURSE ---
PT TO BE TRANSFERRED TO [facility] ROOM 207. REPORT CALLED TO OLU MOREJON. EMS NOTIFIED. PT UP TO CHAIR IN EXAM ROOM, TALKING ON CELL PHONE AT THIS TIME WITHOUT DISTRESS. WILL CONTINUE TO MONITOR.
[2023-05-10 18:01] LABS: Troponin I 26.4 ng/L (0.00-60.4)
--- NOTE | 2023-05-10 18:06 | PC.NURSE ---
1800- EMS RETURNS CALL REPORTING 15 MIN ETA
== END 2023-05-10 18:27 | disposition short-term general hospital (02) ==
PROVIDERS: Emergency Provider Emergency Medicine; PCP Family Medicine
DX: I48.20 Chronic atrial fibrillation, unspecified (principal); I10 Essential (primary) hypertension; E78.5 Hyperlipidemia, unspecified; Z87.891 Personal history of nicotine dependence; Z79.899 Other long term (current) drug therapy
CPT/HCPCS: 36415; 71045; 80053; 83880; 84484; 85025; 85610; 85730; 93005; 96365; 96366; 99285; J7040

== ENCOUNTER 2023-05-10 20:05 | Inpatient (IN) | payer MEDICARE, SELFPAY ==
--- NOTE | ~2023-05-10 | XR_ITS ---
Clinical Indication: Pneumothorax PA and lateral views of the chest: Comparison: 05/10/2023 Findings: There is small left pleural effusion with minimal bibasilar interstitial prominence. There is right apical pleural-parenchymal thickening/scarring. No definite pneumothorax seen.. Cardiomedia stinal silhouette is within normal limits. Bones and soft tissues are unremarkable. Impression: No definite pneumothorax. Small left pleural effusion. Right apical pleural-parenchymal scarring/thickening. Reviewed, dictated and finalized at location . GENCY PREPAREDNESS COORDINATOR Impression: No definite pneumothorax. Small left pleural effusion. Right apical pleural-parenchymal scarring/thickening.
[2023-05-10 19:13] VITALS: BP 125/67; PULSE 112; RESP 18; TEMP 37.2; O2SAT 96
[2023-05-10 19:14] VITALS: BMI 23.0
[2023-05-10 19:30] VITALS: BMI 23.0
--- NOTE | 2023-05-10 19:39 | ADMGEN ---
This patient, Kerri Scott, was admitted to IMU Room 207-01. Patient/family oriented to hospital policies and general routines including ID bracelet, bed and alarms, visiting hours, pain management, procedures, bathroom and other care routines, personal items, smoking policy, room service/diet, and visiting hours. Information on how to activate the Rapid Response Team has been discussed. Patient/Family are encouraged to report perceived risks to care and to ask questions if they do not understand what they are told or what they should do.
[2023-05-10 20:00] VITALS: PULSE 112
--- NOTE | 2023-05-10 20:20 | PM.IMHP ---
H&P: HPI History of Present Illness Date/Time: 05/10/23 20:30 Chief Complaint: New onset atrial fibrillation with rapid ventricular response. Narrative: This is a very pleasant 82-year-old female with recent upper GI bleed, duodenal ulcers, ?irregular heart rhythm? previously on metoprolol though she was taken off of that last month, and carotid artery disease status post right carotid endarterectomy who is being directly admitted to the IMU from an outside emergency department for further treatment and evaluation of new onset atrial fibrillation with rapid ventricular response. She had an appointment today with Gastroenterology following her hospitalization last month in [place] (upper GI bleed secondary to ulcers attributed to NSAID use). At that time she was found to have a rapid heart rate of which she was asymptomatic and she was sent to the ER. She was found to be in new onset atrial fibrillation with rapid ventricular response and she was started on a Cardizem drip with some improvement in her rate. Other than fatigue the last couple of weeks she has not had any symptoms and she specifically denies syncope, near syncope, chest discomfort, sensations of racing heart, palpitations, shortness of breath, sweats, nausea, vomiting, and lower extremity edema. She has no known history of thyroid disease and denies concerns for sleep apnea. No significant caffeine or alcohol intake. She has not had any abdominal pain, bloating, or belching. She has not noticed any dark stools or blood in her stools. No known history of thyroid disease. She denies concerns for sleep apnea. No significant alcohol or caffeine use. Review of Systems Review of Systems: Twelve systems were reviewed and are negative except for as per HPI. [facility] Past Medical History Medical History (Updated 05/10/23 @ 22:44 by Lara Gillis PA-C) Arthritis Carotid artery stenosis Diverticulitis Duodenal ulcer disease Hyperlipemia Hypertension Nicotine dependence, cigarettes, in remission Upper GI bleed (03/2023) Secondary to duodenal ulcers from NSAIDs. Surgical History Surgical History History of bladder repair surgery History of cataract extraction with lens replacement History of cholecystectomy History of hysterectomy History of right-sided carotid endarterectomy History of tonsillectomy Family History Family History Mother Family history of schizophrenia Father Heart failure Sibling Brain tumor Other Family history of malignant neoplasm Social History Social History (Updated 05/10/23 @ 22:45 by Lara Glilis PA-C) Social History: Surrogate medical decision maker: Suni Weston, daughter. Code status: Full code. Smoking packs per day: 1 Smoking cigarettes per day: 20.0 Years smoked: 62 Smoking pack-years: 62.00 Smoking status: Former smoker Tobacco type: cigarettes Smoking end date: 10/08/18 Alcohol intake: never Substance use: never Substance use type: does not use Do You Feel Safe in your Home?: Yes Lack of Transportation: No Lack of Food: Never True Current Housing: I Have Housing Concerned About Future Housing: No Difficulty Paying Gas/Electric Bills: No Difficulty Paying for Meds: No Currently Unemployed: No Education: High School Diploma/GED Difficulty w/ Childcare or Family Care: No Living arrangements: alone Additional living arrangements comments: . Lives alone in [place]. 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 Spiritual care concerns: No Meds Home Medications and Allergies Home Medications Medication Instructions Recorded Confirmed Type cholecalciferol (vitamin D3) 2,000 unit PO DAILY 11/30/22 05/10/23 History nayan
[2023-05-10 20:53] VITALS: BP 125/67; PULSE 131
[2023-05-10] MEDS: dilTIAZem 100 MG/100 ML 100 MG/100 ML BAG IV CONT (20:53)
[2023-05-10] MEDS: GABAPENTIN 300 MG CAPSULE PO (20:54)
[2023-05-10] MEDS: BACLOFEN 5 MG TABLET PO (20:54)
[2023-05-10] MEDS: QUEtiapine FUMARATE 25 MG TABLET PO (20:55)
[2023-05-10] MEDS: SIMVASTATIN 10 MG TABLET PO (20:55)
[2023-05-10 22:00] VITALS: PULSE 106
[2023-05-10 22:17] VITALS: BP 125/67; PULSE 120
[2023-05-10 22:31] VITALS: BP 108/58; PULSE 132
[2023-05-11] VITALS (22 sets, daily range): BP systolic 94–111; BP diastolic 42–76; PULSE 81–132; RESP 18–22; TEMP 36.2–36.6; O2SAT 90–98; BMI 23.0
[2023-05-11 04:50] LABS: Hemoglobin 9.8 g/dL (12.0-15.0); Mean Corpuscular HGB Conc 30.6 g/dl (32-36); Mean Corpuscular Hemoglobin 29.4 pg (26-34); Mean Corpuscular Volume 96.1 fl (80-100); Mean Platelet Volume 10.8 fl (7.4-10.4); Platelet Count Result 204 k/mm3 (150-375); Red Blood Count 3.33 M/mm3 (4.2-5.4); Red Cell Distribution Width 14.8 % (11.5-14.5); White Blood Count 4.8 K/mm3 (4.5-10.0)
[2023-05-11 04:57] LABS: Anion Gap 6 mmol/L (8-16); Blood Urea Nitrogen 11 mg/dL (7-17); Calcium 8.5 mg/dL (8.4-10.2); Carbon Dioxide 26 mmol/L (22-30); Chloride 105 mmol/L (98-107); Estimated CRCL calculation 34 ml/min; Estimated Glomerular Filt Rate 60; Glucose 78 mg/dL (65-110); Magnesium 1.7 mg/dL (1.6-2.3); Potassium 3.8 mmol/L (3.4-5.0); Sodium 137 mmol/L (137-145)
--- NOTE | 2023-05-11 05:26 | PC.NURSE ---
Patient had not voided since admission around 2014. Patient was bladder scanned at 0415 and was found to be >600. Patient voided 250 and post-void residual was 408. Dr. Le notified and orders were received to place a kyle catheter. Patient hesitant about kyle insertion, but was receptive after education of importance of kyle catheter. Will continue to monitor.
[2023-05-11] MEDS: dilTIAZem 100 MG/100 ML 100 MG/100 ML BAG IV CONT (05:53)
[2023-05-11] MEDS: PERFLUTREN LIPID MICROSPHERES 1.5 ML VIAL DILUTED TO 10 ML TOTAL VOLUME IV PUSH (10:10)
[2023-05-11] MEDS: MAGNESIUM CHLORIDE 64 MG TABLET PO (10:23)
[2023-05-11] MEDS: BACLOFEN 5 MG TABLET PO ×3 (10:23→16:55)
[2023-05-11] MEDS: CHOLECALCIFEROL 1,000 UNITS TABLET 2000 UNITS PO (10:23)
[2023-05-11] MEDS: METOPROLOL TARTRATE 25 MG TABLET PO ×2 (10:24→20:19)
[2023-05-11] MEDS: LORATADINE 10 MG TABLET PO (10:24)
[2023-05-11] MEDS: GABAPENTIN 300 MG CAPSULE PO ×2 (10:24→16:55)
[2023-05-11] MEDS: PANTOPRAZOLE 40 MG TABLET PO (10:28)
--- NOTE | 2023-05-11 11:17 | IVDEFINITY ---
Prior to administration of IV Definity the patient was educated on the risks and benefits of the imaging enhancing agent including potential adverse side effects. The patient verbalized understanding. Allergies were verified. No exclusion criteria were identified and at least one of the following inclusion criteria were met: 1) physician request, 2) patient technically difficult to image (per the [place] [employer] guidelines of two or more segments not discernable within the apical view), or 3) questionable left ventricular function. ?
[2023-05-11] MEDS: dilTIAZem HCL CD 120 MG CAP.24HR PO (13:13)
--- NOTE | 2023-05-11 13:38 | PM.CNCAR ---
Assessment and Plan Assessment and plan (1) Atrial fibrillation with rapid ventricular response: Code(s): I48.91 - Unspecified atrial fibrillation Status: Acute Assessment and Plan: New diagnosis of atrial fibrillation. TSH level is normal. Echocardiogram ordered and pending. Continue with Metoprolol 25mg BID. Stop Diltiazem drip and start PO Diltiazem. Increase rate-controlling agents as needed for additional rate control as tolerated by hemodynamics. Needs anticoagulation for stroke prophylaxis, however, has had recent GI bleed. Hold anticoagulation for now. Will need clearance from GI on when anticoagulation can be started. (2) Hypertension: Code(s): I10 - Essential (primary) hypertension Status: Acute Assessment and Plan: Stable. Continue Metoprolol. Switching to PO Diltiazem. (3) Gastrointestinal hemorrhage: Code(s): K92.2 - Gastrointestinal hemorrhage, unspecified Status: Acute Assessment and Plan: Needs anticoagulation for stroke prophylaxis, however, has had recent GI bleed. Hold anticoagulation for now. Will need clearance from GI on when anticoagulation can be started. History of Present Illness History of Present Illness Consult date/time: 05/11/23 13:38 Requesting physician: Lara Gillis PA-C Consult reason: atrial fibrillation Reason For Visit: New Onset Atrial Fibrillation w RVR Narrative: We are consulted for atrial fibrillation with RVR. This is an 82 year old female with recent GI bleed, carotid artery stenosis, hypertension, hyperlipidemia who was seen in GI clinic 05/10 and was found to be tachycardic. EKG was obtained and showed atrial fibrillation with RVR. Patient sent to the ER. Admitted for further management. Started on Diltiazem drip. This is a new diagnosis for the patient. Currently at the time of my evaluation, she is on low dose Diltiazem drip. Her home Metoprolol has been restarted. She is currently rate controlled. Denies chest pain or palpitations. Review of Systems Review of Systems: All systems reviewed & are unremarkable except as noted in HPI and below (HPI) [facility] Past Medical History Medical History Arthritis Carotid artery stenosis Diverticulitis Duodenal ulcer disease Hyperlipemia Hypertension Nicotine dependence, cigarettes, in remission Upper GI bleed (03/2023) Secondary to duodenal ulcers from NSAIDs. Surgical History Surgical History History of bladder repair surgery History of cataract extraction with lens replacement History of cholecystectomy History of hysterectomy History of right-sided carotid endarterectomy History of tonsillectomy Family History Family History Mother Family history of schizophrenia Father Heart failure Sibling Brain tumor Other Family history of malignant neoplasm Social History Social History Social History: Surrogate medical decision maker: Suni Weston, daughter. Code status: Full code. Smoking packs per day: 1 Smoking cigarettes per day: 20.0 Years smoked: 62 Smoking pack-years: 62.00 Smoking status: Former smoker Tobacco type: cigarettes Smoking end date: 10/08/18 Alcohol intake: never Substance use: never Substance use type: does not use Do You Feel Safe in your Home?: Yes Lack of Transportation: No Lack of Food: Never True Current Housing: I Have Housing Concerned About Future Housing: No Difficulty Paying Gas/Electric Bills: No Difficulty Paying for Meds: No Currently Unemployed: No Education: High School Diploma/GED Difficulty w/ Childcare or Family Care: No Living arrangements: alone Additional living arrangements comments: . Lives alone in [place]. Occupation/Education
--- NOTE | 2023-05-11 13:56 | PM.IMPN ---
Progress Note: A&P Assessment and Plan (1) Atrial fibrillation with rapid ventricular response: Code(s): I48.91 - Unspecified atrial fibrillation Status: Acute Assessment and Plan: TSH normal ECHO pending report cardiology consulted - switched to PO Cardizem from drip will need GI clearance for restarting anticoagulation therapy restarted and continue metoprolol 25 BID (2) Duodenal ulcer disease: Code(s): K26.9 - Duodenal ulcer, unspecified as acute or chronic, without hemorrhage or perforation Status: Acute Assessment and Plan: continue pantoprazole 40 mg BID Anticoagulation currently on hold, will need GI clearance (3) Hypertension: Code(s): I10 - Essential (primary) hypertension Status: Acute Assessment and Plan: reviewed, patient running soft on Cardizem continue to monitor Subjective Date/time seen: 05/11/23 13:56 Interval history: Patient sitting up comfortably in bed this morning. Denies SOB or chest pain. Patient in no distress. Cardiology consulted and appreciate input. She will be transitioned to PO Cardizem from drip. Continue to monitor and discuss with GI when anticoagulation can be started. Review of Systems Review of Systems: All systems reviewed & are unremarkable except as noted in HPI and below Exam Narrative: General: Well-developed, nontoxic-appearing female in no distress. HEENT: Normocephalic, atraumatic. PERRL, EOMI. Neck: Supple. No JVD. Respiratory: Lungs are clear to auscultation bilaterally. Cardiovascular: Irregularly irregular rate and rhythm. Gastrointestinal: Abdomen is soft and nontender with positive bowel sounds. Skin: Warm and dry. No rash or lesions on limited exam. Extremities: No cyanosis, clubbing, or edema. Radial and pedal pulses intact. Neurological: Alert and oriented. Cranial nerves 2-12 are grossly intact. No gross focal deficits to casual conversation. Psychiatric: Pleasant and cooperative with normal mood and affect. Judgment and insight intact. Objective Data Vital Signs Vital Signs: Vital Signs - 24 hr 05/10/23 19:13 05/10/23 19:54 05/10/23 20:53 Temperature 98.9 F Pulse Rate 112 H 131 H Respiratory Rate 18 Blood Pressure 125/67 125/67 Pulse Oximetry 96 Oxygen Delivery Room Air 05/10/23 20:00 05/10/23 22:00 05/10/23 22:17 Temperature Pulse Rate 112 H 106 H 120 H Respiratory Rate Blood Pressure 125/67 Pulse Oximetry Oxygen Delivery 05/10/23 22:31 05/11/23 00:00 05/11/23 00:00 Temperature 97.5 F L Pulse Rate 132 H 132 H 115 H Respiratory Rate 18 18 Blood Pressure 108/58 L 108/58 L Pulse Oximetry 96 90 Oxygen Delivery Room Air 05/11/23 00:00 05/11/23 02:00 05/11/23 03:51 Temperature Pulse Rate 96 102 H 93 Respiratory Rate Blood Pressure 95/42 L Pulse Oximetry Oxygen Delivery 05/11/23 04:00 05/11/23 04:00 05/11/23 04:13 Temperature 97.7 F Pulse Rate 87 87 114 H Respiratory Rate 18 18 Blood Pressure 94/43 L Pulse Oximetry 90 96 Oxygen Delivery Room Air 05/11/23 05:52 05/11/23 05:53 05/11/23 05:53 Temperature Pulse Rate 98 98 98 Respiratory Rate Blood Pressure 94/43 L 94/43 L 94/43 L Pulse Oximetry Oxygen Delivery 05/11/23 06:00 05/11/23 07:28 05/11/23 10:24 Temperature 97.7 F Pulse Rate 103 H 107 H 121 H Respiratory Rate 18 Blood Pressure 102/57 L Pulse Oximetry 93 Oxygen Delivery 05/11/23 10:30 05/11/23 08:00 05/11/23 10:00 Temperature Pulse Rate 98 117 H Respiratory Rate Blood Pressure 105/68 Pulse Oximetry Oxygen Delivery 05/11/23 12:00 05/11/23 12:00 Temperature 97.2 F L Pulse Rate 94 87 Respiratory Rate 22 H Blood Pressure 97/63 L Pulse Oximetry 94 Oxygen Delivery Intake/Output Intake/Output: Intake & Output 05/08/23 05/09/23 05/10/23 05/11/23 23:59 23:59 23:59 23:59 Intake Total 780 Output
--- NOTE | 2023-05-11 15:09 | PC.NURSE ---
This nurse was summoned to the pts room per PCT. The pt was c/o pain et discomfort to right knee. The pt endorses that she takes a lidocaine patch at home et would like to have a order for one place. The administrative personal assistant was notified of event et will place a order for new interventions et okay to use heating packs for discomfort.
[2023-05-11] MEDS: MENTHOL 10% / METHYL SALICYLATE 15% 57 GM TUBE 1 APPLIC TOPICAL ×2 (16:56→20:20)
--- NOTE | 2023-05-11 20:06 | ECHO_ITS ---
Patient Info Name: Kerri Scott Age: 82 years : 1940 Gender: Female Ht: 63 in Wt: 130 lbs BSA: 1.63 m2 HR: 103 bpm BP: 94 / 43 mmHg Heart Rhythm: Atrial Fibrillation Technical Quality: Good Exam Date: 05/11/2023 9:44 AM Exam Location: Echo Lab Patient Status: Inpatient Admit Date: 05/10/2023 Staff Ordering Physician: Lara Gillis PA-C Software Sales Representative: Marcela Mcdonald RDCS Attending Provider: Osito Zamorano MD Referring Physician: Carlin FRANCO; Exam Type: CA echo dop color flow w con Study Info Indications - newonset a fib Complete two-dimensional, color flow and Doppler transthoracic echocardiogram is performed with contrast to opacify the left ventricle and to improve the deliniation of the left ventricle endocardial borders. Contrast/Agitated Saline Contrast/Ag. Saline: Definity Amount: 3.00 ml Summary 1. Left ventricular chamber dimension is normal. 2. Left ventricular systolic function is normal, estimated at 65-70%. 3. There is mildly increased left ventricular wall thickness. 4. Right ventricular chamber dimension is moderately enlarged. 5. Right ventricular systolic function is normal. 6. Right atrial chamber dimension is severely enlarged. 7. There is mild mitral valve regurgitation. 8. There is mild tricuspid valve regurgitation. Left Ventricle Left ventricular chamber dimension is normal. Left ventricular systolic function is normal, estimated at 65-70%. There is mildly increased left ventricular wall thickness. Right Ventricle Right ventricular chamber dimension is moderately enlarged. Right ventricular systolic function is normal. Left Atria Left atrial chamber dimension is normal. Right Atria Right atrial chamber dimension is severely enlarged. Atrial Septum Intact interatrial septum visualized by color flow imaging. Aortic Valve The aortic valve is not well visualized. There is no aortic valve stenosis. There is no aortic valve regurgitation. Pulmonic Valve The pulmonic valve is not well visualized. Mitral Valve There is mild mitral valve regurgitation. Tricuspid Valve There is mild tricuspid valve regurgitation. Pericardium/Pleural There is no pericardial effusion. Inferior Vena Cava Dilated inferior vena cava with >50% collapse upon inspiration consistent with elevated right atrial pressure, 8 mmHg. Aorta The aortic root size at the sinus of Valsalva is normal. Left Ventricular Outflow Tract Name Value Normal LVOT 2D LVOT Diameter 1.68 cm LVOT Doppler LVOT Peak Gradient 2 mmHg LVOT Mean Gradient 1 mmHg LVOT VTI 15.33 cm LVOT VTI/AV VTI Ratio 1.04 LVOT Stroke Volume 33.84 ml LVOT CO 2.84 l/min LVOT CI 1.75 L/min/m2 Pulmonic Valve Name Value Normal RVOT Doppler
[2023-05-11] MEDS: QUEtiapine FUMARATE 25 MG TABLET PO (20:19)
[2023-05-11] MEDS: SIMVASTATIN 10 MG TABLET PO (20:19)
[2023-05-12] VITALS (19 sets, daily range): BP systolic 90–105; BP diastolic 50–70; PULSE 77–125; RESP 14–22; TEMP 35.8–36.6; O2SAT 93–100
[2023-05-12 03:13] LABS: Appearance Urine Clear (Clear); Bacteria Urine None Seen /hpf; Bilirubin Urine Negative (Negative); Blood Urine Negative (Negative); Color Urine Yellow (Yellow); Glucose Urine UA Negative (Negative); Ketones Urine Negative (Negative); Leukocyte Esterase Ur 2+ LEU/UL (NEGATIVE); Nitrate Urine Negative (Negative); Protein Urine Negative (Negative); RBC Urine 0-2 /hpf (0-2); Specific Grav Ur 1.008 (1.001-1.035); Squamous Epithelial Cell Urine None seen /hpf (Few); Urobilinogen Urine 0.2 mg/dL (<2.0); WBC Urine 21-50 /hpf (0-3)
[2023-05-12 03:39] LABS: Add Urine Microscopic? YES
[2023-05-12 05:03] LABS: Hematocrit 33.2 % (37.0-47.0); Hemoglobin 10.3 g/dL (12.0-15.0); Mean Corpuscular Volume 96.8 fl (80-100); Platelet Count Result 241 k/mm3 (150-375); Red Blood Count 3.43 M/mm3 (4.2-5.4); Red Cell Distribution Width 14.7 % (11.5-14.5); White Blood Count 5.7 K/mm3 (4.5-10.0)
[2023-05-12 05:18] LABS: Anion Gap 7 mmol/L (8-16); Blood Urea Nitrogen 14 mg/dL (7-17); Calcium 8.4 mg/dL (8.4-10.2); Carbon Dioxide 27 mmol/L (22-30); Chloride 103 mmol/L (98-107); Estimated CRCL calculation 31 ml/min; Estimated Glomerular Filt Rate 53; Glucose 87 mg/dL (65-110); Potassium 3.8 mmol/L (3.4-5.0); Sodium 137 mmol/L (137-145)
[2023-05-12] MEDS: CHOLECALCIFEROL 1,000 UNITS TABLET 2000 UNITS PO (09:07)
[2023-05-12] MEDS: BACLOFEN 5 MG TABLET PO ×3 (09:07→18:50)
[2023-05-12] MEDS: PANTOPRAZOLE 40 MG TABLET PO (09:08)
[2023-05-12] MEDS: GABAPENTIN 300 MG CAPSULE PO ×2 (09:08→18:50)
[2023-05-12] MEDS: MAGNESIUM CHLORIDE 64 MG TABLET PO (09:08)
[2023-05-12] MEDS: METOPROLOL TARTRATE 25 MG TABLET PO ×2 (09:08→20:20)
[2023-05-12] MEDS: dilTIAZem HCL CD 120 MG CAP.24HR PO (09:08)
[2023-05-12] MEDS: LORATADINE 10 MG TABLET PO (09:09)
--- NOTE | 2023-05-12 10:13 | PM.PNCARD ---
Progress Note: A&P Assessment and Plan (1) Atrial fibrillation with rapid ventricular response: Code(s): I48.91 - Unspecified atrial fibrillation Status: Acute Assessment and Plan: New diagnosis of atrial fibrillation. Pursuing rate control strategy. Adequate rate control with current medical regimen. Echocardiogram showed normal LV systolic function, EF 65-70%. Continue with Metoprolol 25mg BID. Can be shifted to Toprol XL 50mg daily at discharge for dosing convenience. Continue with Diltiazem 120mg daily Increase rate-controlling agents as needed for additional rate control as tolerated by hemodynamics. Needs anticoagulation for stroke prophylaxis, however, has had recent GI bleed. Hold anticoagulation for now. Will need clearance from GI on if/when anticoagulation can be started. Will send referral to Dr. Lopez for LAAO closure as well Will arrange outpatient follow up in our office. Cardiology will sign off please call with questions. (2) Hypertension: Code(s): I10 - Essential (primary) hypertension Status: Acute Assessment and Plan: Stable. Continue Metoprolol and Diltiazem. (3) Gastrointestinal hemorrhage: Code(s): K92.2 - Gastrointestinal hemorrhage, unspecified Status: Acute Assessment and Plan: Needs anticoagulation for stroke prophylaxis, however, has had recent GI bleed. Hold anticoagulation for now. Will need clearance from GI on when anticoagulation can be started. Subjective Date/time seen: 05/12/23 10:13 Interval history: Patient sitting up comfortably in bed this morning. Denies SOB or chest pain. Patient in no distress. Cardiology consulted and appreciate input. She will be transitioned to PO Cardizem from drip. Continue to monitor and discuss with GI when anticoagulation can be started. Date of service 05/12/2023: Feeling well this morning. She clark report some confusion this morning which has resolved at this point. She denies any palpitations, chest pain, shortness of breath. Review of Systems Review of Systems: All systems reviewed & are unremarkable except as noted in HPI and below (HPI) Exam Const: General: comfortable and no acute distress HENMT: Mouth: Yes moist mucous membranes Eyes: General: appearance normal, both eyes and all related structures Sclera: sclerae normal Resp: Effort & Inspection: normal respiratory effort Cardio: Rhythm: abnormal rhythm irregularly irregular Skin: General skin exam: normal color Psych: Mental Status: mental status grossly normal Affect: normal affect Objective Data Vital Signs Vital Signs: Vital Signs - 24 hr 05/11/23 10:24 05/11/23 10:30 05/11/23 12:00 Temperature Pulse Rate 121 H 94 Respiratory Rate Blood Pressure 105/68 Pulse Oximetry Oxygen Delivery Oxygen Flow Rate 05/11/23 12:00 05/11/23 14:00 05/11/23 15:39 Temperature 36.2 C L 36.6 C Pulse Rate 87 94 95 Respiratory Rate 22 H 18 Blood Pressure 97/63 L 111/76 Pulse Oximetry 94 98 Oxygen Delivery Oxygen Flow Rate 05/11/23 16:30 05/11/23 18:00 05/11/23 19:45 Temperature 36.6 C Pulse Rate 99 98 110 H Respiratory Rate 18 Blood Pressure 98/46 L Pulse Oximetry 97 Oxygen Delivery Oxygen Flow Rate 05/11/23 20:19 05/11/23 20:00 05/11/23 20:00 Temperature Pulse Rate 83 83 102 H Respiratory Rate 18 Blood Pressure Pulse Oximetry 97 Oxygen Delivery Room Air Oxygen Flow Rate 05/11/23 22:00 05/12/23 00:00 05/12/23 00:22 Temperature 36.6 C Pulse Rate 81 81 90 Respiratory Rate 18 18 Blood Pressure 100/56 L Pulse Oximetry 97 98 Oxygen Delivery Room Air Oxygen Flow Rate 05/12/23 00:00 05/12/23 02:00 05/12/23 02:58 Temperature 36.4 C L Pulse Rate 94 92 105 H Respiratory Rate 16 Blood Pressure 91/50 L Pulse Oximetry 93 Oxygen Delivery Oxygen Flow Rate 05/12/23 04:00 05/12/23 04:00 05/12/23 06:00 Temp
--- NOTE | 2023-05-12 12:51 | P.CDI_ITS ---
CDI Query Clarification Request BMI 23.0 Nutritional Diagnostic Statement: Moderate protein calorie malnutrition related to chronic GERD, loss of appetite as evidenced by 13% weight loss/5 months; inadequate intake <75% needs >1 month; NFPE findings of moderate muscle wasting and fat loss. Please refer to the comprehensive nutrition assessment for further information. Please clarify severity of protein calorie malnutrition if known: * Mild * Moderate * Severe * Other/Unspecified
--- NOTE | 2023-05-12 13:22 | P.CDI_ITS ---
CDI Query Clarification Request BMI 23.0 Nutritional Diagnostic Statement Moderate protein calorie malnutrition related to chronic GERD, loss of appetite as evidenced by 13% weight loss/5 months; inadequate intake < 75% needs >1 month; NFPE findings of moderate muscle wasting and fat loss. Please refer to the comprehensive nutrition assessment for further information. Please clarify severity of protein calorie malnutrition if known: * Mild * Moderate * Severe * Other/Unspecified <Pearl Vargas RN - Last Filed: 05/12/23 13:27> Clarified Diagnosis Clarified Diagnosis: moderate <Preeti Amaya APRN - Last Filed: 05/12/23 13:31> Provider Comments this is not from my charting, this came from the roll edge stitcher hand <Preeti Amaya APRN - Last Filed: 05/12/23 13:31>
--- NOTE | 2023-05-12 14:25 | PC.NURSE ---
On 05/12/23, the student, [Marj Do ], provided care and completed Korrio documentation on this patient. I have reviewed the student's documentation and agree with the findings.
--- NOTE | 2023-05-12 15:33 | PM.IMPN ---
Progress Note: A&P Assessment and Plan (1) Atrial fibrillation with rapid ventricular response: Code(s): I48.91 - Unspecified atrial fibrillation Status: Acute Assessment and Plan: TSH normal ECHO showed normal LV systolic function, EF 65-70%. cardiology consulted - switched to PO Cardizem will need GI clearance for restarting anticoagulation therapy referral sent by Cardiology TELEGRAPH REPEATER TECHNICIAN to Dr. Lopez for LAAO closure as well continue metoprolol 25 BID while inpatient, transition to Toprol XL at discharge (2) Duodenal ulcer disease: Code(s): K26.9 - Duodenal ulcer, unspecified as acute or chronic, without hemorrhage or perforation Status: Acute Assessment and Plan: continue pantoprazole 40 mg BID Anticoagulation currently on hold, will need GI clearance (3) Hypertension: Code(s): I10 - Essential (primary) hypertension Status: Acute Assessment and Plan: reviewed, patient running soft on Cardizem continue to monitor Subjective Date/time seen: 05/12/23 15:33 Interval history: Patient sitting up in the chair this morning. Denies SOB or chest pain. Patient in no distress.Cardiology following and cleared for d/c when appropriate. Would like to get home O2 evaluation prior as she is still requiring 2L NC and her baseline is no oxygen needs. UA culture sent today and pending. Review of Systems Review of Systems: All systems reviewed & are unremarkable except as noted in HPI and below Exam Narrative: General: Well-developed, nontoxic-appearing female in no distress. HEENT: PERRL, EOMI. Neck: Supple. No JVD. Respiratory: Lungs are clear to auscultation bilaterally. Cardiovascular: RRR, mild tachycardia on exam Gastrointestinal: Abdomen is soft and nontender with positive bowel sounds. Skin: Warm and dry. No rash or lesions on limited exam. Extremities: No cyanosis, clubbing, or edema. Radial and pedal pulses intact. Neurological: Alert and oriented. Cranial nerves 2-12 are grossly intact. No gross focal deficits to casual conversation. Psychiatric: Pleasant and cooperative with normal mood and affect. Judgment and insight intact. Objective Data Vital Signs Vital Signs: Vital Signs - 24 hr 05/11/23 15:39 05/11/23 16:30 05/11/23 18:00 Temperature 97.8 F Pulse Rate 95 99 98 Respiratory Rate 18 Blood Pressure 111/76 Pulse Oximetry 98 Oxygen Delivery Oxygen Flow Rate 05/11/23 19:45 05/11/23 20:19 05/11/23 20:00 Temperature 97.8 F Pulse Rate 110 H 83 83 Respiratory Rate 18 18 Blood Pressure 98/46 L Pulse Oximetry 97 97 Oxygen Delivery Room Air Oxygen Flow Rate 05/11/23 20:00 05/11/23 22:00 05/12/23 00:00 Temperature Pulse Rate 102 H 81 81 Respiratory Rate 18 Blood Pressure Pulse Oximetry 97 Oxygen Delivery Room Air Oxygen Flow Rate 05/12/23 00:22 05/12/23 00:00 05/12/23 02:00 Temperature 97.9 F Pulse Rate 90 94 92 Respiratory Rate 18 Blood Pressure 100/56 L Pulse Oximetry 98 Oxygen Delivery Oxygen Flow Rate 05/12/23 02:58 05/12/23 04:00 05/12/23 04:00 Temperature 97.5 F L Pulse Rate 105 H 105 H 85 Respiratory Rate 16 16 Blood Pressure 91/50 L Pulse Oximetry 93 93 Oxygen Delivery Nasal Cannula Oxygen Flow Rate 2 05/12/23 06:00 05/12/23 08:00 05/12/23 08:30 Temperature 97 F L Pulse Rate 106 H 110 H Respiratory Rate 16 Blood Pressure 105/70 Pulse Oximetry 96 95 Oxygen Delivery Nasal Cannula Oxygen Flow Rate 2 05/12/23 09:08 05/12/23 08:00 05/12/23 10:00 Temperature Pulse Rate 125 H 99 98 Respiratory Rate Blood Pressure Pulse Oximetry Oxygen Delivery Oxygen Flow Rate 05/12/23 12:00 05/12/23 12:30 Temperature 96.4 F L Pulse Rate 91 98 Respiratory Rate 14 Blood Pressure 91/50 L Pulse Oximetry 100 Oxygen Delivery Oxygen Flow Rate Intake/Output Intake/Output: Intake & Output
--- NOTE | 2023-05-12 17:17 | PC.NURSE ---
This patient, Kerri Scott, was transferred to [facility] via bed on 05/12/23 at 1715 without issue. Personal belongings sent with patient. Report given to OLU Ramirez. Appropriate documentation sent with patient.
[2023-05-12] MEDS: SIMVASTATIN 10 MG TABLET PO (20:20)
[2023-05-12] MEDS: QUEtiapine FUMARATE 25 MG TABLET PO (20:20)
[2023-05-13] VITALS (13 sets, daily range): BP systolic 87–113; BP diastolic 56–60; PULSE 72–122; RESP 12–16; TEMP 36.2–36.5; O2SAT 92–98
[2023-05-13 07:45] LABS: Hematocrit 38.4 % (37.0-47.0); Hemoglobin 11.5 g/dL (12.0-15.0); Mean Corpuscular HGB Conc 29.9 g/dl (32-36); Mean Corpuscular Hemoglobin 29.4 pg (26-34); Mean Corpuscular Volume 98.2 fl (80-100); Mean Platelet Volume 10.8 fl (7.4-10.4); Platelet Count Result 250 k/mm3 (150-375); Red Blood Count 3.91 M/mm3 (4.2-5.4); Red Cell Distribution Width 14.7 % (11.5-14.5); White Blood Count 7.3 K/mm3 (4.5-10.0)
[2023-05-13 07:57] LABS: Anion Gap 6 mmol/L (8-16); Blood Urea Nitrogen 19 mg/dL (7-17); Calcium 8.6 mg/dL (8.4-10.2); Carbon Dioxide 29 mmol/L (22-30); Chloride 105 mmol/L (98-107); Estimated CRCL calculation 28 ml/min; Estimated Glomerular Filt Rate 47; Glucose 83 mg/dL (65-110); Potassium 4.5 mmol/L (3.4-5.0); Sodium 140 mmol/L (137-145)
[2023-05-13] MEDS: LORATADINE 10 MG TABLET PO (09:27)
[2023-05-13] MEDS: GABAPENTIN 300 MG CAPSULE PO ×2 (09:27→16:10)
[2023-05-13] MEDS: MAGNESIUM CHLORIDE 64 MG TABLET PO (09:27)
[2023-05-13] MEDS: BACLOFEN 5 MG TABLET PO ×3 (09:27→16:10)
[2023-05-13] MEDS: PANTOPRAZOLE 40 MG TABLET PO (09:27)
[2023-05-13] MEDS: CHOLECALCIFEROL 1,000 UNITS TABLET 2000 UNITS PO (09:29)
[2023-05-13] MEDS: dilTIAZem HCL CD 120 MG CAP.24HR PO (09:29)
[2023-05-13] MEDS: METOPROLOL TARTRATE 25 MG TABLET PO ×2 (09:29→22:57)
--- NOTE | 2023-05-13 14:54 | PM.IMPN ---
Progress Note: A&P Assessment and Plan (1) Atrial fibrillation with rapid ventricular response: Code(s): I48.91 - Unspecified atrial fibrillation Status: Acute Assessment and Plan: TSH normal ECHO showed normal LV systolic function, EF 65-70%. cardiology consulted - switched to PO Cardizem will need GI clearance for restarting anticoagulation therapy referral sent by Cardiology MANAGER SALT to Dr. Lopez for LAAO closure as well continue metoprolol 25 BID while inpatient, transition to Toprol XL at discharge (2) Duodenal ulcer disease: Code(s): K26.9 - Duodenal ulcer, unspecified as acute or chronic, without hemorrhage or perforation Status: Acute Assessment and Plan: continue pantoprazole 40 mg BID Anticoagulation currently on hold, will need GI clearance (3) Hypertension: Code(s): I10 - Essential (primary) hypertension Status: Acute Assessment and Plan: reviewed, patient running soft on Cardizem continue to monitor Subjective Date/time seen: 05/13/23 14:54 Interval history: Patient lying comfortably in bed. Denies SOB or chest pain. She is reporting her right hand has occasional spontaneous movements, which is new. Bottom Saw Operator strength was 5/5, no pain or decreased ROM. Spasm not reproducible. Patient in no distress. Cardiology following and cleared for d/c when appropriate. Would like to get home O2 evaluation prior as she is still requiring 2L NC and her baseline is no oxygen needs. UA culture still pending. Will remove Dickinson today and see how she does overnight. Plan for d/c tomorrow pending results of UA and O2 eval. Patient to have home health set up when she returns home. Review of Systems Review of Systems: All systems reviewed & are unremarkable except as noted in HPI and below Exam Narrative: General: Well-developed, nontoxic-appearing female in no distress. HEENT: PERRL, EOMI. Neck: Supple. No JVD. Respiratory: Lungs are clear to auscultation bilaterally. Cardiovascular: RRR, mild tachycardia on exam Gastrointestinal: Abdomen is soft and nontender with positive bowel sounds. Skin: Warm and dry. No rash or lesions on limited exam. Extremities: No cyanosis, clubbing, or edema. Radial and pedal pulses intact. Neurological: Alert and oriented. Cranial nerves 2-12 are grossly intact. No gross focal deficits to casual conversation. Psychiatric: Pleasant and cooperative with normal mood and affect. Judgment and insight intact. Objective Data Vital Signs Vital Signs: Vital Signs - 24 hr 05/12/23 15:49 05/12/23 16:00 05/12/23 18:00 Temperature 97.3 F L Pulse Rate 92 97 86 Respiratory Rate 16 Blood Pressure 90/54 L Pulse Oximetry 100 Oxygen Delivery Oxygen Flow Rate 05/12/23 20:00 05/12/23 20:20 05/12/23 20:00 Temperature 97.5 F L Pulse Rate 77 77 92 Respiratory Rate 22 H Blood Pressure 96/63 L Pulse Oximetry 99 Oxygen Delivery Oxygen Flow Rate 05/12/23 20:00 05/13/23 00:00 05/12/23 22:05 Temperature Pulse Rate 77 93 Respiratory Rate 22 H Blood Pressure Pulse Oximetry 99 99 Oxygen Delivery Nasal Cannula Nasal Cannula Oxygen Flow Rate 2 2 05/13/23 04:00 05/13/23 05:33 05/13/23 09:29 Temperature 97.7 F Pulse Rate 79 84 104 H Respiratory Rate 12 Blood Pressure 87/57 L Pulse Oximetry 98 Oxygen Delivery Oxygen Flow Rate 05/13/23 08:00 05/13/23 08:00 05/13/23 12:00 Temperature Pulse Rate 104 H 94 122 H Respiratory Rate 12 Blood Pressure Pulse Oximetry 98 Oxygen Delivery Nasal Cannula Oxygen Flow Rate 2 05/13/23 08:00 05/13/23 12:00 Temperature 97.6 F 97.6 F Pulse Rate 84 88 Respiratory Rate 15 16 Blood Pressure 90/58 L 92/56 L Pulse Oximetry 97 96 Oxygen Delivery Oxygen Flow Rate Intake/Output Intake/Output: Intake & Output 05/10/23 05/11/23 05/12/23 05/13/23 23:59 23:59 23:59 23:59 Intake Total 3640 1535 120 Outpu
--- NOTE | 2023-05-13 17:02 | HOMEO2EVAL ---
Evaluation was performed at [facility] Home Oxygen Evaluation RC: Home Oxygen (O2) Evaluation Start: 05/12/23 11:08 Freq: ONCE Status: Active Protocol: RPE Activity Type Activity Date Activity User E-sign Co-sign Detail Recorded Client Recorded Date Recorded By Document 05/13/23 15:00 BRANDIE [id number] 05/13/23 17:02 BRANDIE Document 05/13/23 15:05 BRANDIE [id number] 05/13/23 17:02 BRANDIE Document 05/13/23 15:15 BRANDIE [id number] 05/13/23 17:02 BRANDIE 05/13/23 05/13/23 05/13/23 15:00 15:05 15:15 Home O2 Evaluation [Oxygen] -Test Phase Resting Exercise Resting -Oxygen Delivery Room Air Room Air Room Air [Pulse Oximetry] -Pulse Oximetry (90-100 %) 93 95 92 [Pulse Rate] -Pulse Rate (60-100 beats/min) 83 113 H 88 [Charges] -Evaluation Charges O2 Evaluation by Pulmonary
--- NOTE | 2023-05-13 17:02 | PCRCNOTE ---
Home O2 eval complete, no home O2 needed at this time. RN notified.
[2023-05-13] MEDS: SIMVASTATIN 10 MG TABLET PO (22:57)
[2023-05-13] MEDS: QUEtiapine FUMARATE 25 MG TABLET PO (22:57)
[2023-05-13] MEDS: ACETAMINOPHEN 325 MG TABLET 650 MG PO (22:59)
[2023-05-14] VITALS: PULSE 82
[2023-05-14 04:00] VITALS: PULSE 84
[2023-05-14 05:52] LABS: Hematocrit 33.4 % (37.0-47.0); Hemoglobin 10.2 g/dL (12.0-15.0); Mean Corpuscular HGB Conc 30.5 g/dl (32-36); Mean Corpuscular Hemoglobin 29.6 pg (26-34); Mean Corpuscular Volume 96.8 fl (80-100); Mean Platelet Volume 10.6 fl (7.4-10.4); Platelet Count Result 235 k/mm3 (150-375); Red Blood Count 3.45 M/mm3 (4.2-5.4); Red Cell Distribution Width 14.6 % (11.5-14.5); White Blood Count 5.4 K/mm3 (4.5-10.0)
[2023-05-14 06:00] VITALS: BP 125/64; PULSE 108; RESP 16; TEMP 36.1; O2SAT 94
[2023-05-14 06:06] LABS: Anion Gap 3 mmol/L (8-16); Blood Urea Nitrogen 22 mg/dL (7-17); Calcium 8.2 mg/dL (8.4-10.2); Carbon Dioxide 29 mmol/L (22-30); Chloride 104 mmol/L (98-107); Estimated CRCL calculation 31 ml/min; Estimated Glomerular Filt Rate 53; Glucose 86 mg/dL (65-110); Potassium 4.1 mmol/L (3.4-5.0); Sodium 136 mmol/L (137-145)
[2023-05-14 08:00] VITALS: PULSE 94
[2023-05-14] MEDS: PANTOPRAZOLE 40 MG TABLET PO (08:53)
[2023-05-14] MEDS: GABAPENTIN 300 MG CAPSULE PO (08:53)
[2023-05-14] MEDS: MAGNESIUM CHLORIDE 64 MG TABLET PO (08:53)
[2023-05-14] MEDS: LORATADINE 10 MG TABLET PO (08:53)
[2023-05-14] MEDS: CHOLECALCIFEROL 1,000 UNITS TABLET 2000 UNITS PO (08:53)
[2023-05-14] MEDS: BACLOFEN 5 MG TABLET PO ×2 (08:53→12:16)
[2023-05-14 08:54] VITALS: PULSE 70
[2023-05-14] MEDS: METOPROLOL TARTRATE 25 MG TABLET PO (08:54)
[2023-05-14] MEDS: dilTIAZem HCL CD 120 MG CAP.24HR PO (08:54)
--- NOTE | 2023-05-14 11:01 | PM.DS ---
DS: Admitting Diagnosis Discharge Date 05/14/23 Admitting Diagnosis Arrhythmia/Palpitations DS: Discharge Diagnosis Discharge Diagnosis (1) Atrial fibrillation with rapid ventricular response: Code(s): I48.91 - Unspecified atrial fibrillation Status: Acute Assessment and Plan: TSH normal ECHO showed normal LV systolic function, EF 65-70%. cardiology following - f/u scheduled for 06/08/23 outpatient will need GI clearance for restarting anticoagulation therapy referral sent by Cardiology PRESSER FIRST to Dr. Lopez for LAAO closure as well transition to Toprol 50 mg XL at discharge (2) Duodenal ulcer disease: Code(s): K26.9 - Duodenal ulcer, unspecified as acute or chronic, without hemorrhage or perforation Status: Acute Assessment and Plan: continue pantoprazole 40 mg BID Anticoagulation currently on hold, will need GI clearance (3) Hypertension: Code(s): I10 - Essential (primary) hypertension Status: Acute Assessment and Plan: reviewed, patient running soft on Cardizem continue to monitor DS: Summary Hospital Course Hospital Course: Patient is an 82 YO female with recent upper GI bleed, duodenal ulcers, ?irregular heart rhythm? previously on metoprolol though she was taken off of that last month, and carotid artery disease status post right carotid endarterectomy admitted from an outside emergency department for new onset atrial fibrillation with rapid ventricular response. She had an appointment on 05/10 with Gastroenterology following her hospitalization last month in [place] for upper GI bleed secondary to ulcers attributed to NSAID use. At that time she was found to have a rapid heart rate of which she was asymptomatic and she was sent to the ER. She was found to be in new onset atrial fibrillation with rapid ventricular response and she was started on a Cardizem drip with some improvement in her rate. Other than fatigue the last couple of weeks she has not had any symptoms and she denied syncope, near syncope, chest discomfort, palpitations, shortness of breath, sweats, nausea, vomiting, and lower extremity edema. TSH was normal. No history of sleep apnea. No significant caffeine or alcohol intake. She has not had any abdominal pain, bloating, or belching. She has not noticed any dark stools or blood in her stools. Cardiology was consulted and followed during her time here. ECHO showed normal LV systolic function, EF 65-70%. She will be discharged on toprol XL, diltiazem, and follow up outpatient in mid-May. Patient needs clearance from her GI provider on when to restart anticoagulation. Previous office note reviewed and gave no indication on dates. Referral for Watchman made in the meantime. Dickinson was removed, UA culture pending but UA was not indicative of infection, will hold AB until culture results. Patient voiding on her own. Home health has been arranged for d/c. Status at Discharge Functional status at discharge: uses cane/walker Overall status at discharge: patient is back to baseline Time Spent with Patient Time attestation: Total time spent providing and/or coordinating discharge services: Exam Narrative: General: Well-developed, nontoxic-appearing female in no distress. HEENT: PERRL, EOMI. Neck: Supple. No JVD. Respiratory: Lungs are clear to auscultation bilaterally. Cardiovascular: RRR. Gastrointestinal: Abdomen is soft and nontender with positive bowel sounds. Skin: Warm and dry. No rash or lesions on limited exam. Extremities: No cyanosis, clubbing, or edema. Radial and pedal pulses intact. Neurological: Alert and oriented. Cranial nerves 2-12 are grossly intact. No gross focal deficits to casual conversation. Psychiatric: Pleasant and cooperative with normal mood and affect. Judgment and insight intact. DS: Data Data Completed and Pending Labs on day of discharge: Labs from last 24 hours 05/14/23 05:40 WBC 5.4 RBC 3.45
[2023-05-14 12:00] VITALS: PULSE 104
== END 2023-05-14 13:28 | disposition home health service (06) | DRG 309 ==
LOC: ANHIMU 05-11 16:20 → ANH3MED 05-14 10:04 → ANHIMU 05-16 16:15
PROVIDERS: Internal Medicine; Physician Assistant; Admitting Provider Internal Medicine; PCP Nurse Practitioner Family; Visit Provider Nurse Practitioner
DX: I48.91 Unspecified atrial fibrillation (principal); E44.0 Moderate protein-calorie malnutrition; K26.9 Duodenal ulcer, unspecified as acute or chronic, without hemorrhage or perforation; I10 Essential (primary) hypertension; E78.5 Hyperlipidemia, unspecified; K21.9 Gastro-esophageal reflux disease without esophagitis; M19.90 Unspecified osteoarthritis, unspecified site; Z87.891 Personal history of nicotine dependence; Z98.49 Cataract extraction status, unspecified eye; Z96.1 Presence of intraocular lens; Z90.49 Acquired absence of other specified parts of digestive tract; Z90.710 Acquired absence of both cervix and uterus; Z79.82 Long term (current) use of aspirin; Z88.0 Allergy status to penicillin; Z68.23 Body mass index [BMI] 23.0-23.9, adult
CPT/HCPCS: 36415; 71046; 80048; 81001; 83735; 84443; 85027; 87086; 94618; A9270; C8929; Q9957

== ENCOUNTER 2023-06-03 13:27 | Observation (INO) | payer MEDICARE, SELFPAY ==
[2023-06-03] VITALS (39 sets, daily range): BP systolic 97–144; BP diastolic 55–110; PULSE 85–131; RESP 16–30; TEMP 34.8–36.6; O2SAT 92–99; BMI 22.8
--- NOTE | ~2023-06-03 | XR_ITS ---
EXAMINATION: XR chest 1V portable INDICATION: Shortness of breath and chest tightness TECHNIQUE: Portable AP chest at 1407 hours COMPARISON: 05/11/2023 FINDINGS: The lung volumes are low. The cardiomediastinal silhouette is normal. The lungs are free of acute opacities. No pleural effusion or pneumothorax. There is scarring in the right lung apex. IMPRESSION: 1. No acute cardiopulmonary abnormality. Reviewed, dictated and finalized at location B. DENTIAL ROOFER HELPER
--- NOTE | ~2023-06-03 | NM_ITS ---
EXAMINATION: NM lung vent and perfusion DATE: 06/03/2023 22:23 INDICATION: Shortness of breath. TECHNIQUE: 1.0 mCi Tc-99m DTPA aerosol was administered for ventilation images. 5.0 mCi Tc-99m MAA wa s administered intravenously for perfusion images. Scintigraphic images of the chest were obtained. COMPARISON: Chest single view 06/03/2023, perfusion scintigraphy 10/08/2021., chest two views 05/11/23 FINDINGS: Ventilation images demonstrate small defects in the upper lobes and lower lobes and large defects in left lower lobe. Perfusion images show matched small defects in the lungs and large defects in left l ower lobe. IMPRESSION: 1. Intermediate probability for pulmonary embolism. Reviewed, dictated and finalized at location E. ESTATE CLOSER
--- NOTE | 2023-06-03 13:29 | ECG_ITS ---
Measurements Intervals [place] Rate: 136 P: VT: 0 QRS: 91 QRSD: 73 T: 46 QT: 284 QTc: 428 Interpretive Statements ATRIAL FIBRILLATION WITH RAPID VENTRICULAR RESPONSE BORDERLINE RIGHT AXIS DEVIATION [QRS AXIS > 90] NONSPECIFIC ST & T-WAVE ABNORMALITY ABNORMAL RHYTHM ECG COMPARED TO ECG 05/10/2023 14:20:41 NO SIGNIFICANT DIFFERENCE Electronically Signed On 06-03-2023 15:50:33 ICT ANALYST by William Lopez M.D.
[2023-06-03 14:10] LABS: Basophils Absolute Auto 0.04 K/mm3 (0.00-0.10); Basophils Percent Auto 0.5 % (0.0-1.0); Eosinophils Absolute Auto 0.06 K/mm3 (0.02-0.50); Eosinophils Percent Auto 0.7 % (1.0-6.0); Hematocrit 37.3 % (35.0-42.0); Hemoglobin 11.6 g/dL (11.7-13.8); Immature Granulocyte Absolute 0.02 K/mm3 (0.00-0.00); Immature Granulocyte Percent A 0.2 % (0.0-0.0); Lymphocytes Absolute Auto 1.07 K/mm3 (1.10-4.50); Lymphocytes Percent Auto 13.2 % (18.0-42.0); Mean Corpuscular HGB Conc 31.1 g/dL (32.0-36.0); Mean Corpuscular Hemoglobin 28.5 pg (27.0-31.0); Mean Corpuscular Volume 91.6 fL (78.0-102.0); Mean Platelet Volume 10.3 fl (9.2-11.8); Monocytes Absolute Auto 0.79 K/mm3 (0.10-0.90); Monocytes Percent Auto 9.7 % (2.0-11.0); Neutrophils Absolute Auto 6.2 K/mm3 (1.7-7.2); Neutrophils Percent Auto 75.7 % (50.0-70.0); Platelet Count Result 228 K/mm3 (150-420); Red Blood Count 4.07 M/mm3 (4.20-5.40); Red Cell Distribution Width 14.2 % (11.6-14.4); White Blood Count 8.1 K/mm3 (4.8-10.8)
[2023-06-03] MEDS: dilTIAZem HCl INJ 25 MG/5 ML VIAL 10 MG IV PUSH (14:14)
[2023-06-03] MEDS: ASPIRIN 81 MG CHEWABLE TABLET 324 MG PO (14:15)
[2023-06-03 14:26] LABS: INR 1.1; Partial Thromboplastin Time 27.9 SEC (23.90-30.70); Prothrombin Time 11.5 Seconds (9.50-12.10)
--- NOTE | 2023-06-03 14:27 | PC.NURSE ---
Lab reports critical Ddimer of 0.6
[2023-06-03 14:33] LABS: Alanine Aminotransferase 17 U/L (14-59); Albumin Level 3.9 g/dL (3.4-5.0); Alkaline Phosphatase 62 U/L (46-116); Anion Gap 9 mmol/L (8-16); Aspartate Amino Transferase 16 U/L (15-37); Bilirubin,Total 0.6 mg/dL (0.00-1.00); Blood Urea Nitrogen 16 mg/dL (7-18); Calcium 8.6 mg/dL (8.5-10.1); Carbon Dioxide 27 mmol/L (21-32); Chloride 101 mmol/L (98-108); Estimated Glomerular Filt Rate 57; Glucose 104 mg/dL (70-99); Lipase 26 U/L (16-77); NT Pro B Type Natriuretic Pept 5070 pg/mL (0-450); Osmolality Calculated 285 mOsm/kg (285-295); Potassium 4.3 mmol/L (3.5-5.1); Sodium 137 mmol/L (136-145); Total Protein 7.1 g/dL (6.4-8.2); Troponin I 12.6 ng/L (0.00-60.4)
--- NOTE | 2023-06-03 14:45 | ECG_ITS ---
Measurements Intervals [place] Rate: 88 P: TX: 0 QRS: 86 QRSD: 77 T: 11 QT: 344 QTc: 418 Interpretive Statements ATRIAL FIBRILLATION NONSPECIFIC T-WAVE ABNORMALITY ABNORMAL RHYTHM ECG COMPARED TO ECG 06/03/2023 13:40:42 VENTRICULAR RESPONSE TO AFIB IS NOW CONTROLLED Electronically Signed On 06-03-2023 15:51:03 RECORDS SPECIALIST by William Lopez M.D.
[2023-06-03] MEDS: FUROSEMIDE INJ 40 MG/4 ML VIAL IV PUSH (16:28)
--- NOTE | 2023-06-03 16:43 | PC.NURSE ---
attempted to call daughter and update her per patient request.
[2023-06-03 17:28] LABS: Appearance Urine Clear (Clear); Bilirubin Urine Negative (Negative); Blood Urine Trace-Intact (Negative); Color Urine Light Yellow (Yellow); Glucose Urine UA Negative (Negative); Ketones Urine Negative (Negative); Leukocyte Esterase Ur 1+ LEU/UL (Negative); Nitrate Urine Negative (Negative); Protein Urine Negative (Negative); Specific Grav Ur 1.015 (1.010-1.020); Urobilinogen Urine 0.2 mg/dL (0.2-1.0); pH Urine 5.5 (5.0-8.0)
[2023-06-03 17:31] LABS: Add Urine Microscopic? YES; Bacteria Urine Trace /hpf; Squamous Epithelial Cell Urine Few /hpf (Few)
[2023-06-03 17:36] LABS: Troponin I 13.1 ng/L (0.00-60.4)
--- NOTE | 2023-06-03 18:27 | ED.CHESTPAIN ---
HPI - Chest Pain General Chief Complaint: Chest Pain Stated Complaint: weakness Time Seen by Provider: 06/03/23 13:46 Source: patient Mode of arrival: ambulatory Limitations: no limitations History of Present Illness HPI narrative: Patient is a 2-year-old female with significant past medical history presents today with AFib with RVR. Patient has a history of AFib treated with metoprolol and Cardizem. She is not currently on blood thinner. She apparently has a full GI bleed and is on blood thinner for this reason. Her AFib was well controlled on the metoprolol and the Cardizem. However today she was with a increase her BT and irregularities and found to be in AFib with RVR. When she arrived to the emergency department I gave her an IV push of 10 mg of Cardizem. Repeat EKG did show AFib with no RVR. D-dimer was elevated. She cannot have IV contrast however she has lowered to this though no CTA could be completed. Ordered V/Q scan and they can do is tomorrow morning at 11:00 a.m.. Her symptoms improved after treatment. MD complaint: chest pain Pertinent past history: other (afib) Onset (ago): week(s) Timing of current episode: episodic Prior episodes: Yes Onset: during rest and during exertion Pain location: substernal Pain radiation: none Severity: moderate Quality: tightness and aching Relieving factors: nothing Exacerbating factors: nothing Treatment prior to arrival: none Risk Factors Coronary artery disease risk factors: none Thoracic aortic dissection risk factors: none Related Data On Oral Contraceptives: No Home Medications Medication Instructions Recorded Confirmed cholecalciferol (vitamin D3) 2,000 unit PO DAILY 11/30/22 06/03/23 loratadine 10 mg tablet 10 mg PO DAILY 11/30/22 06/03/23 pantoprazole 40 mg tablet,delayed 40 mg PO DAILY 05/10/23 06/03/23 release (Protonix) simvastatin 10 mg tablet 10 mg PO HS 05/10/23 06/03/23 docusate sodium 100 mg tablet 100 mg PO PRN PRN Constipation 06/03/23 06/03/23 Allergies Allergy/AdvReac Type Severity Reaction Status Date / Time codeine Allergy Intermediate unknown Verified 06/03/23 13:54 iodine Allergy Intermediate Unknown Verified 06/03/23 13:54 meperidine [Demerol] Allergy Intermediate Unknown Verified 06/03/23 13:54 Penicillins Allergy Intermediate Unknown Verified 06/03/23 13:54 propoxyphene [Darvon-N] Allergy Intermediate Unknown Verified 06/03/23 13:54 tramadol Allergy Intermediate Unknown Verified 06/03/23 13:54 Anesthesia Med Allergy Severe Difficulty Uncoded 06/03/23 13:54 Breathing Darvocet A500 Allergy Intermediate Unknown Uncoded 06/03/23 13:54 Review of Systems Review of Systems: All systems reviewed & are unremarkable except as noted in HPI and below Constitutional: Constitutional: Reports no additional constitutional complaints Eyes: Eyes: Reports no additional eye complaints ENT: Reports system reviewed and no additional complaints, except as documented Cardiovascular: Cardiovascular: Reports chest pain, Reports irregular heart rhythm and Reports dyspnea Respiratory: Respiratory: Reports as per HPI Gastrointestinal: Gastrointestinal: Reports no additional gastrointestinal complaints Genitourinary: Genitourinary: Reports no additional female genitourinary complaints Musculoskeletal: Musculoskeletal: Reports no additional musculoskeletal complaints Integumentary/Breasts: Skin/Breast: Reports system reviewed and no additional complaints, except as docu Neurologic: Reports system reviewed and no additional complaints, except as documented Psychiatric: Psychiatric: Reports no additional psychiatric complaints Endocrine: Endocrine: Reports no additional endocrine complaints Hematologic/Lymphatic: Hematologic/Lymphatic: Reports no additional hematologic/lymphatic complaints Allergic/Immunologic: Allergic/Immunologic: Reports no additional allergic/immunologic complaints [facility] Past Medical History Medical History (Reviewed 06/03
[2023-06-03] MEDS: METOPROLOL TARTRATE 25 MG TABLET PO (19:22)
[2023-06-03] MEDS: dilTIAZem HCL 30 MG TABLET PO (19:50)
[2023-06-03 20:13] LABS: Free T4 Free Thyroxine 1.42 ng/dL (0.76-1.46); Magnesium 1.6 mg/dL (1.8-2.4); Phosphorus 4.4 mg/dL (2.6-4.7)
[2023-06-03] MEDS: SIMVASTATIN 10 MG TABLET PO (20:17)
[2023-06-03] MEDS: MAGNESIUM SULF 2 GM/WATER 50ML 2 GM/50 ML BAG IVPB (22:19)
[2023-06-03] MEDS: HYDROcodone/acetaminophen (*CRX) 5-325 MG TABLET 1 TAB PO (22:19)
[2023-06-04] VITALS: BP 126/88; PULSE 117; RESP 16; TEMP 36.6; O2SAT 94
[2023-06-04] MEDS: dilTIAZem HCL 30 MG TABLET PO ×2 (00:55→06:10)
[2023-06-04] MEDS: HYDROcodone/acetaminophen (*CRX) 5-325 MG TABLET 1 TAB PO ×2 (03:22→11:05)
[2023-06-04 04:00] VITALS: BP 130/76; PULSE 83; RESP 16; TEMP 36.7; O2SAT 92
[2023-06-04 05:35] LABS: Basophils Absolute Auto 0.04 K/mm3 (0.00-0.10); Basophils Percent Auto 0.8 % (0.0-1.0); Eosinophils Absolute Auto 0.23 K/mm3 (0.02-0.50); Eosinophils Percent Auto 4.4 % (1.0-6.0); Hemoglobin 10.7 g/dL (11.7-13.8); Immature Granulocyte Absolute 0.02 K/mm3 (0.00-0.00); Immature Granulocyte Percent A 0.4 % (0.0-0.0); Lymphocytes Absolute Auto 1.06 K/mm3 (1.10-4.50); Lymphocytes Percent Auto 20.3 % (18.0-42.0); Mean Corpuscular HGB Conc 31.5 g/dL (32.0-36.0); Mean Corpuscular Hemoglobin 28.7 pg (27.0-31.0); Mean Corpuscular Volume 91.2 fL (78.0-102.0); Mean Platelet Volume 10.4 fl (9.2-11.8); Monocytes Absolute Auto 0.77 K/mm3 (0.10-0.90); Monocytes Percent Auto 14.8 % (2.0-11.0); Neutrophils Absolute Auto 3.1 K/mm3 (1.7-7.2); Neutrophils Percent Auto 59.3 % (50.0-70.0); Platelet Count Result 210 K/mm3 (150-420); Red Blood Count 3.73 M/mm3 (4.20-5.40); Red Cell Distribution Width 14.3 % (11.6-14.4); White Blood Count 5.2 K/mm3 (4.8-10.8)
[2023-06-04 05:46] LABS: Alanine Aminotransferase 16 U/L (14-59); Albumin Level 3.4 g/dL (3.4-5.0); Alkaline Phosphatase 53 U/L (46-116); Anion Gap 7 mmol/L (8-16); Aspartate Amino Transferase 20 U/L (15-37); Bilirubin,Total 0.4 mg/dL (0.00-1.00); Blood Urea Nitrogen 21 mg/dL (7-18); Calcium 8.4 mg/dL (8.5-10.1); Carbon Dioxide 31 mmol/L (21-32); Chloride 101 mmol/L (98-108); Estimated CRCL calculation 28 ml/min; Estimated Glomerular Filt Rate 47; Glucose 83 mg/dL (70-99); Magnesium 2.1 mg/dL (1.8-2.4); Osmolality Calculated 290 mOsm/kg (285-295); Potassium 3.7 mmol/L (3.5-5.1); Sodium 139 mmol/L (136-145); Total Protein 6.3 g/dL (6.4-8.2)
[2023-06-04 08:00] VITALS: BP 67/41; BP 87/55; PULSE 74; PULSE 75; RESP 14; TEMP 36.4; O2SAT 93
[2023-06-04] MEDS: CHOLECALCIFEROL 1,000 UNITS TABLET 2000 UNITS PO (09:22)
[2023-06-04] MEDS: PANTOPRAZOLE 40 MG TABLET PO (09:23)
[2023-06-04] MEDS: LORATADINE 10 MG TABLET PO (09:23)
[2023-06-04] MEDS: ACETAMINOPHEN 325 MG TABLET 650 MG PO (09:34)
--- NOTE | 2023-06-04 09:55 | PM.IMHP ---
H&P: HPI History of Present Illness Date/Time: 06/04/23 09:55 Chief Complaint: SOB, afib RVR Narrative: This is an 82 year old female patient with history of a-fib recently admitted to [place] in April for a-fib RVR and previously to [facility] with GI bleed. Patient is not on anticoagulation due to GI bleed in March 2023. Patient complained of shortness of breath and was started on oxygen in ER. D-Dimer was slightly elevated and patient is allergic to IV contrast so VQ scan was ordered instead of CTA. Perfusion defects noted and reading is indeterminant. Thus patient will need transfer for pretreatment protocol to obtain CTA. Patient reports cough and sore throat. Viral panel not checked in ER so we will order prior to transfer. Also, UA shows some WBCs so we will start treatment for UTI. After arrival to floor last night she became tachycardic again after initially being controlled by 10 mg IV diltiazem bolus x1 in ER. Ordered additional oral metoprolol and diltiazem overnight which has improved RVR but now blood pressure is low. Will order IV fluid bolus. Despite elevated BNP patient does not have crackles or pulmonary edema noted on CXR. Recent Echo shows normal EF without LV or RV dysfunction. Suspect BNP is elevated due to afib RVR rather than CHF. Patient reports cough, sore throat and dyspnea as chief symptoms. She denies chest pain and troponins yesterday were stable. Review of Systems Review of Systems: All systems reviewed & are unremarkable except as noted in HPI and below PMFSH Past Medical History Medical History Arthritis Carotid artery stenosis Diverticulitis Duodenal ulcer disease Hyperlipemia Hypertension Nicotine dependence, cigarettes, in remission Upper GI bleed (03/2023) Secondary to duodenal ulcers from NSAIDs. Surgical History Surgical History History of bladder repair surgery History of cataract extraction with lens replacement History of cholecystectomy History of hysterectomy History of right-sided carotid endarterectomy History of tonsillectomy Family History Family History Mother Family history of schizophrenia Father Heart failure Sibling Brain tumor Other Family history of malignant neoplasm Social History Social History Social History: Surrogate medical decision maker: Suni Weston, daughter. Code status: Full code. Smoking packs per day: 1 Smoking cigarettes per day: 20.0 Years smoked: 70 Smoking pack-years: 70.00 Smoking status: Former smoker Tobacco type: cigarettes Smoking end date: 10/08/18 Alcohol intake: never Substance use: never Substance use type: does not use Do You Feel Safe in your Home?: Yes Lack of Transportation: No Lack of Food: Never True Current Housing: I Have Housing Concerned About Future Housing: No Difficulty Paying Gas/Electric Bills: No Difficulty Paying for Meds: No Currently Unemployed: No Education: High School Diploma/GED Difficulty w/ Childcare or Family Care: No Living arrangements: alone Additional living arrangements comments: . Lives alone in [place]. 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 Spiritual care concerns: No Meds Home Medications and Allergies Home Medications Medication Instructions Recorded Confirmed Type cholecalciferol (vitamin D3) 2,000 unit PO DAILY 11/30/22 06/03/23 History loratadine 10 mg tablet 10 mg PO DAILY 11/30/22 06/03/23 History magnesium chloride 64 mg 64 mg PO DAILY #30 tabs 04/20/23 06/03/23 Rx (magnesium chloride) tablet,delayed release pantoprazole 40 mg tablet,delayed 40 mg PO
[2023-06-04] MEDS: SODIUM CHLORIDE 0.9% IV 500 ML IV CONT (10:12)
[2023-06-04] MEDS: cefTRIAXone 2 GM/NS 100 ML 2 GM/100 ML BAG IVPB (10:13)
--- NOTE | 2023-06-04 10:25 | PM.TDS ---
Transfer Discharge Sum: Prov Provider Date of admission: 06/03/23 17:43 Primary care physician: Geetha Veliz NP Admitting clinician: Abdelrahman Zavala MD Attending physician on admission: Remigio Zavala Attending physician on discharge: Remigio Zavala Discharging clinician: Shaq Porras Anticipated date of transfer: 06/04/23 [facility] DS: Admitting Diagnosis Discharge Date 06/04/2023 Admitting Diagnosis atrial fibrillation with RVR, positive D-dimer, allergic to IV contrast, abnormal urinalysis, duodenal ulcer disease DS: Discharge Diagnosis Discharge Diagnosis (1) Atrial fibrillation with RVR: Code(s): I48.91 - Unspecified atrial fibrillation Status: Acute Assessment and Plan: Recurrent afib RVR on metoprolol XL 50 mg daily and Diltiazem CR 120 mg daily, responded well to additional diltiazem, recommend increase to 180 mg daily pending blood pressure tolerance (2) D-dimer, elevated: Code(s): R79.89 - Other specified abnormal findings of blood chemistry Status: Acute Assessment and Plan: Complaints of shortness of breath on presentation required oxygen in the emergency department slightly elevated D-dimer but patient is allergic to IV contrast so V/Q scan was ordered which resulted with intermediate probability for PE with small defects in the upper lobes and lower lobes and large defects in the left lower lobe. Patient requires transfer for pretreatment for CTA due to allergy. This procedure is not available at this facility per Dr. Zavala. (3) Allergic to IV contrast: Code(s): Z91.041 - Radiographic dye allergy status Status: Acute Assessment and Plan: Patient requires pretreatment due to unknown allergy to IV contrast for CTA due to intermediate probability for PE on VQ scan. Patient has been accepted in transfer to [facility]. (4) Abnormal urinalysis: Code(s): R82.90 - Unspecified abnormal findings in urine Status: Acute Assessment and Plan: there are white blood cells present in the urine. Urine culture in process. We will initiate treatment with IV Rocephin after consultation with receiving physician Dr. Goff at [place]. (5) Duodenal ulcer disease: Code(s): K26.9 - Duodenal ulcer, unspecified as acute or chronic, without hemorrhage or perforation Status: Acute Assessment and Plan: GI bleeding in March 2023 where patient was treated at [facility]. EGD was completed at that facility records not available immediately. Will have to request records once patient arrives to [place]. Patient reports stomach ulcer, prior history documented in the record shows duodenal ulcer disease. Either way patient has not been restarted on anticoagulation for A-fib because she has not been cleared by GI. Plan Transferred [facility] Transfer Discharge Sum: Med Medications Active and Home Medications: Home Medications cholecalciferol (vitamin D3) 2,000 unit PO DAILY 11/30/22 [History Confirmed 06/03/23] loratadine 10 mg tablet 10 mg PO DAILY 11/30/22 [History Confirmed 06/03/23] magnesium chloride 64 mg (magnesium chloride) tablet,delayed release 64 mg PO DAILY #30 tabs 04/20/23 [Rx Confirmed 06/03/23] pantoprazole 40 mg tablet,delayed release (Protonix) 40 mg PO DAILY 05/10/23 [History Confirmed 06/03/23] simvastatin 10 mg tablet 10 mg PO HS 05/10/23 [History Confirmed 06/03/23] diltiazem HCl 120 mg capsule,24 hr,extended release 120 mg PO QAM #30 caps 05/14/23 [Rx Confirmed 06/03/23] metoprolol succinate 50 mg tablet,extended release 24 hr (Toprol XL) 50 mg PO DAILY #30 tabs 05/14/23 [Rx Confirmed 06/03/23] acetaminophen 325 mg tablet 650 mg PO Q6H PRN Pain (Scale Score 1-3) #60 tabs 05/20/23 [Rx Confirmed 06/03/23] docusate sodium 100 mg tablet 100 mg PO PRN PRN Constipation 06/03/23 [History Confirmed 06/03/23] Active M
[2023-06-04 10:45] VITALS: BP 92/55
[2023-06-04 11:11] LABS: SARS-CoV-2 RNA PCR Negative (Negative)
[2023-06-04 11:15] LABS: Influenza A QL RT-PCR Negative (Negative); Influenza B QL RT-PCR Negative (Negative); RSV RNA, RT-PCR Positive (Negative)
--- NOTE | 2023-06-04 12:17 | PC.NURSE ---
Pt transfered to [facility]. VSS, tele continued, pt is in AFIB with RVR she is alert and oriented x 3. Personal belongings sent with pt. Report called to Arianne at [facility].
== END 2023-06-04 11:30 | disposition short-term general hospital (02) ==
LOC: CHSED 14:18 → CHS2ND 17:48
PROVIDERS: Nurse Practitioner; Admitting Provider Internal Medicine; Emergency Provider Family Medicine; PCP Nurse Practitioner Family; Visit Provider Internal Medicine
DX: I48.91 Unspecified atrial fibrillation (principal); B97.4 Respiratory syncytial virus as the cause of diseases classified elsewhere; K26.9 Duodenal ulcer, unspecified as acute or chronic, without hemorrhage or perforation; R79.1 Abnormal coagulation profile; Z91.041 Radiographic dye allergy status; Z20.822 Contact with and (suspected) exposure to COVID-19; R82.90 Unspecified abnormal findings in urine; E78.5 Hyperlipidemia, unspecified; I10 Essential (primary) hypertension; R94.31 Abnormal electrocardiogram [ECG] [EKG]; Z87.891 Personal history of nicotine dependence
CPT/HCPCS: 36415; 71045; 78582; 80053; 81001; 83690; 83735; 83880; 84100; 84439; 84484; 85025; 85380; 85610; 85730; 87077; 87086; 87088; 87637; 93005; 96365; 96366; 96367; 96375; 99285; A9270; A9540; A9558; G0378; J0696; J1940; J3475; J7040

== ENCOUNTER 2023-06-04 16:37 | Inpatient (IN) | payer MEDICARE, SELFPAY ==
[2023-06-04] VITALS (7 sets, daily range): BP systolic 120–128; BP diastolic 64–70; PULSE 104–129; RESP 16–18; TEMP 36.3; O2SAT 94–96
--- NOTE | ~2023-06-04 | CT_ITS ---
EXAMINATION: CT brain wo con DATE: 06/10/2023 15:13 INDICATION: Altered mental status TECHNIQUE: Computed tomography (CT) of the head was performed without intravenous contrast. Sagittal and coronal reconstructions were performed. The mA was adjusted according to patient size. Iterative reconstruction technique was employed. The dose-length product was 605.33 mGy-cm. COMPARISON: head CT dated 11/30/2022 FINDINGS: No acute intracranial hemorrhage, acute infarction or abnormal extra axial fluid collection. There is mild to moderate scattered white matter hypoattenuation consistent with chronic small vessel ischemi c disease. Ventricles are normal and symmetric. No mass/mass effect. Changes of bilateral intraocula r lens replacement. The orbits and mastoid air cells are normal. The callosal thickening the bilatera l ethmoid and maxillary sinuses. IMPRESSION: 1. No acute intracranial process. Dr. Spring discussed these findings with Dr. Zavala at 3:19 PM. 2. Mild to moderate scattered white matter hypoattenuation consistent with chronic small vessel ische naresh disease. 2. Reviewed, dictated and finalized at location A. URE STUDIES PROFESSOR IMPRESSION: 1. No acute intracranial process. Dr. Spring discussed these findings with Dr Charlie Zavala at 3:19 PM. 2. Mild to moderate scattered white matter hypoattenuation consistent with branch assistant ventura small vessel ischemic disease. 2.
--- NOTE | ~2023-06-04 | CT_ITS ---
Clinical Indication: Shortness of breath CT Scan of the Chest with Contrast: Technique: Contiguous sections were acquired throughout the chest after intravenous administration of 100 cc of Omnipaque 350. Dose reduction technique was used on this scan by utilizing automated expos ure control and iterative reconstruction technique. The dose-length product (DLP) was 316.88 mGy-cm. COMPARISON: 10/31/2022 Findings: There is no evidence of any significant mediastinal, hilar or axillary lymphadenopathy. There is no f illing defect in the pulmonary arterial tree to suggest pulmonary embolus. There is no evidence of ao rtic dissection or aneurysm. No pericardial effusion. Small to moderate bilateral pleural effusions are present, with bibasilar atelectatic change.. The lungs are clear. No pulmonary nodules or infiltrates are noted. Images through the upper abdomen reveal stable low-density left adrenal nodule. Chronic L1 compressio n fracture noted. Impression: No evidence of pulmonary embolus, aortic dissection, or aortic aneurysm. Small to moderate bilateral pleural effusions with mild bibasilar atelectatic change. Chronic L1 compression fracture. Reviewed, dictated and finalized at [facility]. ER SEMICONDUCTOR DIES Impression: No evidence of pulmonary embolus, aortic dissection, or aortic aneurysm. Small to moderate bilateral pleural effusions with mild bibasilar atelectatic c hange. Chronic L1 compression fracture.
--- NOTE | ~2023-06-04 | CT_ITS ---
EXAMINATION: CTA BRAIN/CAROTID DATE: 06/10/2023 15:18 INDICATION: Acute mental status TECHNIQUE: Computed tomographic angiography (CTA) of the head and neck was performed with 100 mL Omni paque-350 intravenous contrast. Multiplanar reconstructions and maximum intensity projection 3D-recon structions of the carotid arteries and of the intracranial arteries were created by the technologist on a separate workstation. Automated exposure control and iterative reconstruction technique were emp loyed.The dose-length product was 983.74 mGy-cm. COMPARISON: None. FINDINGS: Carotid arteries: There is no evident atherosclerotic plaque with 0% stenosis of the right carotid bulb relative to nor mal distal artery lumen diameter (NASCET criteria). There is small atherosclerotic plaque with 0% meghan nosis of the left carotid bulb relative to normal distal artery lumen diameter. Visualized aortic arc h is normal in caliber with no dissection. There prominent atherosclerotic plaque and a short dissect ion flap at the proximal left subclavian artery. There is a 50% stenosis at this location. Bilateral vertebral arteries are codominant. There appears be a likely carotid and 50% stenosis at the origin o f the left vertebral artery however assessment is limited by streak artifact at this location. There is additional small amount of atherosclerotic plaque with <50% stenosis along the left vertebral josette ry at the level of the lower cervical spine. Small posterior layering pleural effusions are seen at t he bilateral mid to upper lungs. Chronic posterior biapical pleural-parenchymal scarring. There is se jody cervical spondylosis with anterior fusion at C4-C6. Intracranial arteries Minimal nonhemodynamically significant atherosclerotic plaque at the bilateral carotid siphons. There is no hemodynamically significant stenosis in the vertebral, basilar and internal carotid arteries. The intracranial vertebral arteries are codominant proximally. The more distal right vertebral artery appears to divide with both branches later fusing with the basilar artery. There are no aneurysms id entified. Both A1 and P1 segments are patent. Cerebral arterial arborization appears symmetric. IMPRESSION: 1. No evident atherosclerotic plaque with 0% stenosis of the right carotid bulb relative to normal di stal artery lumen diameter (NASCET criteria). 2. Small amount of atherosclerotic plaque with 0% stenosis of the left carotid bulb relative to cleo l distal artery lumen diameter. 3. No evident atherosclerotic plaque, thrombosis or dissection of the intracranial cerebral arteries. 4. Potentially hemodynamically significant stenosis at the origin of the left vertebral artery assess ment of which is limited by streak artifact. 5. 50% stenosis and small dissection flap at the proximal left subclavian artery. 6. Small bilateral pleural effusions. Reviewed, dictated and finalized at location A. N TUNER ELECTRONIC IMPRESSION: 1. No evident atherosclerotic plaque with 0% stenosis of the right carotid bulb relative to normal distal artery lumen diameter (NASCET criteria). 2. Small amount of atherosclerotic plaque with 0% stenosis of the left carotid bulb relative to normal distal artery lumen diameter. 3. No evident atherosclerotic plaque, thrombosis or dissection of the intracran ial cerebral arteries. 4. Potentially hemodynamically significant stenosis at the origin of the left v ertebral artery assessment of which is limited by streak artifact. 5. 50% stenosis and small dissection flap at the proximal left subclavian arter y. 6. Small bilateral pleural effusions.
--- NOTE | ~2023-06-04 | XR_ITS ---
XR chest 1V portable DATE: 06/07/2023 09:12 INDICATION: Shortness of breath. Sputum production. TECHNIQUE: Portable upright AP chest on June 07, 2023 at 0757 hours COMPARISON: June 05, 2023 CTA chest June 03, 2023 portable AP chest May 11, 2023 PA and lateral chest 6 October 08, 2021 PA and lateral chest FINDINGS: Chronic bilateral apical scarring, right greater than left. Small pleural effusions and mild patchy infiltrate or atelectasis in the lower lung zones. Heart size appears within normal range. There is prominent aortic arch calcification. No pneumothorax. Diffuse osteopenia. IMPRESSION: Mild infiltrate or atelectasis in the lower lung zones and small pleural effusions Reviewed, dictated and finalized at location L. L TRANSFERRER IMPRESSION: Mild infiltrate or atelectasis in the lower lung zones and small pl eural effusions
--- NOTE | ~2023-06-04 | XR_ITS ---
EXAMINATION: XR chest 2V Exam Date/Time: 06/11/2023 15:37 HARDBOARD SUPERVISOR HISTORY: wheezing Comparison: 06/07/2023; CTPA 06/05/2023. RESULT: Lines, tubes, and devices: None. Lungs and pleura: Senescent/emphysematous changes. Mild bilateral costophrenic angle blunting. Minim al subsegmental patchy left lower lobe airspace disease. Biapical pleural scarring. Cardiomediastinal silhouette: Stable. Other: No acute osseous or upper abdominal finding. IMPRESSION: Minimal subsegmental left basilar atelectasis/consolidation. Small bilateral pleural effusions. Reviewed, dictated and finalized at location K. BOARD SUPERVISOR IMPRESSION: Minimal subsegmental left basilar atelectasis/consolidation. Small bilateral pl eural effusions.
--- NOTE | 2023-06-04 12:15 | ADMGEN ---
This patient, Kerri Scott, was admitted to IMU Room 201-01. Patient/family oriented to hospital policies and general routines including ID bracelet, bed and alarms, visiting hours, pain management, procedures, bathroom and other care routines, personal items, smoking policy, room service/diet, and visiting hours. Information on how to activate the Rapid Response Team has been discussed. Patient/Family are encouraged to report perceived risks to care and to ask questions if they do not understand what they are told or what they should do.
--- NOTE | 2023-06-04 15:07 | PM.CNCAR ---
Assessment and Plan Assessment and plan (1) A-fib: Code(s): I48.91 - Unspecified atrial fibrillation Status: Acute Assessment and Plan: My plan is to simply resume her stable regimen of metoprolol succinate 50 mg daily as well as her diltiazem 120 mg daily. Can adjust these medications as need be. Hold off on anticoagulation at least at this point. Plan was for left atrial appendage occluder evaluation as an outpatient. Obviously this may change depending on if she truly has a pulmonary embolism or not. Will defer that management to hospitalist service (2) Hypertension: Code(s): I10 - Essential (primary) hypertension Status: Acute Assessment and Plan: Continue home regimen (3) D-dimer, elevated: Code(s): R79.89 - Other specified abnormal findings of blood chemistry Status: Acute Assessment and Plan: CT PE protocol to be performed had IV contrast dye allergy prep here at [place]. (4) Shortness of breath: Code(s): R06.02 - Shortness of breath Status: Acute Assessment and Plan: Predominantly related to RSV virus (5) Gastrointestinal hemorrhage: Code(s): K92.2 - Gastrointestinal hemorrhage, unspecified Status: Acute Assessment and Plan: History of GI bleed admitted at the time to [facility] and not on anticoagulation because of it History of Present Illness History of Present Illness Consult date/time: 06/04/23 15:07 Requesting physician: Carmel Goff MD Consult reason: atrial fibrillation Reason For Visit: Afib, +D-dimer Narrative: Date of service 06/04/[address] Goff Reason for consultation: AFib History: Patient is 82-year-old female who recently in this hospital treated for atrial fibrillation. She was discharged on Toprol XL 50 mg daily as well as diltiazem 120 mg daily. Heart rate was controlled. Plan was to send her to Dr. Lopez as an outpatient for treatment with a left atrial appendage occluded device because of a history of GI bleeding. She went to [facility] because of worsening shortness of breath. She had a D-dimer that was slightly elevated which led to a V/Q scan which is intermediate probability. Reportedly at [facility] cannot perform CT PE protocol CT scans because of her IV dye allergy a pretreatment issues. Regardless she was transferred here for further workup evaluation. While in [place], she was given pulse dose of IV diltiazem which in addition to her oral regimen did cause a low blood pressure which then subsequently led to IV fluids. She has since tested positive for RSV and due to the need to rule out for PE and CT scan as well as her atrial fibrillation she was transferred to [place] further workup evaluation and treatment. She currently feels okay and denies any chest pain, syncope, presyncope, paroxysmal nocturnal dyspnea, orthopnea. Has some stable left lower leg edema. No palpitations. Review of Systems Review of Systems: All systems reviewed & are unremarkable except as noted in HPI and below Constitutional: Constitutional: Denies body ache(s) Eyes: Eyes: Denies blurry vision ENT: Reports Normal hearing present Cardiovascular: Cardiovascular: Denies chest pain Respiratory: Respiratory: Reports dyspnea Gastrointestinal: Gastrointestinal: Denies abdominal pain Genitourinary: Genitourinary: Denies hematuria Musculoskeletal: Musculoskeletal: Denies back pain Integumentary/Breasts: Skin/Breast: Denies dry skin Neurologic: Denies Abnormal speech present Psychiatric: Psychiatric: Denies anxiety Endocrine: Endocrine: Denies excessive sweating Hematologic/Lymphatic: Hematologic/Lymphatic: Denies easy bleeding Allergic/Immunologic: Allergic/Immunologic: Denies GI upset with certain foods PMFSH Past Medical History Medical History Arthritis Carotid artery stenosis Diverticulitis
--- NOTE | 2023-06-04 16:44 | PM.IMHP ---
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 She was discharged on 05/14/2023 an episode of AFib with RVR. Sent home with home health on Toprol XL 50 mg daily and Cardizem 120 mg extended release daily. She had been taking her medications as prescribed. She was not prescribed anticoagulation as she had a suspected upper GI bleed recently and via EGD was found to have many nonbleeding duodenal ulcers. She was advised to stop NSAID use. She returns as she complained of shortness of breath. Transfer from [place] to [place] for pretreatment of contrast due to allergy. Arrived on 06/04/2023 Review of Systems Review of Systems: All systems reviewed & are unremarkable except as noted in HPI and below (Subjective) [facility] Past Medical History Medical History Arthritis Carotid artery stenosis Diverticulitis Duodenal ulcer disease Hyperlipemia Hypertension Nicotine dependence, cigarettes, in remission Upper GI bleed (03/2023) Secondary to duodenal ulcers from NSAIDs. Surgical History Surgical History History of bladder repair surgery History of cataract extraction with lens replacement History of cholecystectomy History of hysterectomy History of right-sided carotid endarterectomy History of tonsillectomy Family History Family History Mother Family history of schizophrenia Father Heart failure Sibling Brain tumor Other Family history of malignant neoplasm Social History Social History Social History: Surrogate medical decision maker: Suni Weston, daughter. Code status: Full code. Smoking packs per day: 1 Smoking cigarettes per day: 20.0 Years smoked: 70 Smoking pack-years: 70.00 Smoking status: Former smoker Alcohol intake: never Substance use: never Substance use type: does not use Do You Feel Safe in your Home?: Yes Lack of Transportation: No Lack of Food: Never True Current Housing: I Have Housing Concerned About Future Housing: No Difficulty Paying Gas/Electric Bills: No Difficulty Paying for Meds: No Currently Unemployed: No Education: High School Diploma/GED Difficulty w/ Childcare or Family Care: No Living arrangements: alone Additional living arrangements comments: . Lives alone in [place]. 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 Spiritual care concerns: No Meds Home Medications and Allergies Home Medications Medication Instructions Recorded Confirmed Type loratadine 10 mg tablet 10 mg PO DAILY 11/30/22 06/04/23 History pantoprazole 40 mg tablet,delayed 40 mg PO DAILY 05/10/23 06/04/23 History release (Protonix) simvastatin 10 mg tablet 10 mg PO HS 05/10/23 06/04/23 History acetaminophen 500 mg capsule 500 mg PO DAILY PRN Pain (Scale 06/04/23 06/04/23 History Score 1-3) baclofen 5 mg tablet 5 mg PO DAILY 06/04/23 06/04/23 History gabapentin 300 mg capsule 300 mg PO BID 06/04/23 06/04/23 History Allergies Allergy/AdvReac Type Severity Reaction Status Date / Time codeine Allergy Intermediate unknown Verified 06/03/23 13:54 iodine Allergy Intermediate Unknown Verified 06/03/23 13:54 meperidine [Demerol] Allergy Intermediate Unknown Verified 06/03/23 13:54 Penicillins Allergy Intermediate Unknown Verified 06/03/23 13:54 propoxyphene [Darvon-N] Allergy Intermediate Unknown Verified
[2023-06-04] MEDS: SODIUM CHLORIDE 0.9% IV 1,000 ML 100 ML IV CONT (17:19)
[2023-06-04] MEDS: ACETAMINOPHEN 325 MG TABLET 650 MG PO (17:19)
[2023-06-04] MEDS: GABAPENTIN 300 MG CAPSULE PO (17:22)
[2023-06-04] MEDS: METOPROLOL SUCCINATE EXT REL 50 MG TABCR PO (18:27)
[2023-06-04] MEDS: SIMVASTATIN 10 MG TABLET PO (21:14)
[2023-06-05] VITALS (17 sets, daily range): BP systolic 117–172; BP diastolic 78–91; PULSE 95–136; RESP 16–24; TEMP 36.2–36.8; O2SAT 93–97
[2023-06-05] MEDS: predniSONE 40 MG, predniSONE 10 MG 50 MG PO ×2 (01:07→07:25)
[2023-06-05] MEDS: SODIUM CHLORIDE 0.9% IV 1,000 ML 100 ML IV CONT (03:30)
[2023-06-05 05:23] LABS: Basophils Percent Auto 0.3 % (0.2-1.2); Hematocrit 36.4 % (37.0-47.0); Hemoglobin 11.1 g/dL (12.0-15.0); Immature Granulocyte Absolute 0.02 K/mm3 (0.00-0.031); Immature Granulocyte Percent A 0.5 % (0-0.5); Lymphocytes Absolute Auto 0.39 K/mm3 (0.9-3.2); Lymphocytes Percent Auto 10.4 % (18.3-44.2); Mean Corpuscular HGB Conc 30.5 g/dl (32-36); Mean Corpuscular Hemoglobin 28.4 pg (26-34); Mean Corpuscular Volume 93.1 fl (80-100); Mean Platelet Volume 11.1 fl (7.4-10.4); Monocytes Absolute Auto 0.1 K/mm3 (0.1-0.6); Monocytes Percent Auto 2.1 % (2.6-8.5); Neutrophils Absolute Auto 3.2 K/mm3 (1.3-6.7); Neutrophils Percent Auto 86.7 % (45.5-73.1); Platelet Count Result 211 k/mm3 (150-375); Red Blood Count 3.91 M/mm3 (4.2-5.4); Red Cell Distribution Width 14.6 % (11.5-14.5); White Blood Count 3.7 K/mm3 (4.5-10.0)
[2023-06-05 05:36] LABS: Anion Gap 9 mmol/L (8-16); Blood Urea Nitrogen 20 mg/dL (7-17); Calcium 8.9 mg/dL (8.4-10.2); Carbon Dioxide 25 mmol/L (22-30); Chloride 103 mmol/L (98-107); Estimated Glomerular Filt Rate 60; Glucose 169 mg/dL (65-110); Magnesium 2.1 mg/dL (1.6-2.3); Potassium 4.2 mmol/L (3.4-5.0); Sodium 137 mmol/L (137-145)
--- NOTE | 2023-06-05 07:20 | PC.NURSE ---
1st 50mg dose of prednisone given on 06/04/23 at 1900.
[2023-06-05] MEDS: diphenhydrAMINE HCl INJ 50 MG/ML VIAL IV PUSH (07:25)
--- NOTE | 2023-06-05 08:22 | PM.IMPN ---
Progress Note: A&P Assessment and Plan (1) Shortness of breath: Code(s): R06.02 - Shortness of breath Status: Acute (2) Abnormal urinalysis: Code(s): R82.90 - Unspecified abnormal findings in urine Status: Acute (3) Allergic to IV contrast: Code(s): Z91.041 - Radiographic dye allergy status Status: Acute (4) D-dimer, elevated: Code(s): R79.89 - Other specified abnormal findings of blood chemistry Status: Acute (5) Atrial fibrillation with RVR: Code(s): I48.91 - Unspecified atrial fibrillation Status: Acute (6) Hypertension: Code(s): I10 - Essential (primary) hypertension Status: Acute (7) Duodenal ulcer disease: Code(s): K26.9 - Duodenal ulcer, unspecified as acute or chronic, without hemorrhage or perforation Status: Acute (8) Osteoarthritis, knee: Code(s): M17.10 - Unilateral primary osteoarthritis, unspecified knee Status: Acute Plan This is a pleasant 82-year-old white female with a history of AFib, previous tobacco abuse, hyperlipidemia, hypertension, 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 She was discharged on 05/14/2023 an episode of AFib with RVR.? Sent home with home health on Toprol XL 50 mg daily and Cardizem 120 mg extended release daily.? She had been taking her medications as prescribed.? She was not prescribed anticoagulation as she had a suspected upper GI bleed recently and via EGD was found to have many nonbleeding duodenal ulcers.? She was advised to stop NSAID use.? She returns as she complained of shortness of breath.? Transfer from [place] to [place] for pretreatment of contrast due to allergy.? Arrived on 06/04/2023 #Chest tightness/shortness of breath -this has resolved completely.? Likely related to her atrial fibrillation with rapid ventricular rate or the RSV.? Troponin negative x2. -while at [place] the patient had a D-dimer test performed but age adjusted is within normal limits.? Still a V/Q scan was performed which demonstrates intermediate probability of PE.? There are certainly other reasons for the patient to have hypoxia and chest tightness but in light of this already performed test we will conduct a pretreatment for contrast allergy and assess for evidence of PE.? The patient wants to move forward with this as it can affect her need for anticoagulation.? She reports 60 years prior had transient trouble breathing after receiving contrast but was not of great issue after receiving Benadryl.? She will receive prednisone scheduled and IV Benadryl.? Continue pulse ox and telemetry and monitoring -on 06/05/2023 she is no more symptomatology. Pending CTA chest #AFib with RVR -home meds restarted per Cardiology. Continue to push recommendations. -she had been control overnight but this morning wavers between 05/15/2029. Will give morning meds early in adjust maintenance doses with Cardiology #RSV -continue supportive care #Acute hypoxic respiratory failure -resolved. Continue to monitor O2. #CKD stage IIIA -continue to monitor.? Continue fluids for now at 100 cc/hour since she will be receiving IV contrast. Stop 6 hours post CTA chest #Suspected upper GI bleed with history of duodenal ulcer disease thought to be secondary to NSAID use -considering her high chads Vasc score and even possible PE, would be reasonable to initiate anticoagulation given her duodenal ulcers were likely due to NSAID use which she has since stopped.? None the less, we will appreciate GI recommendations for use of anticoagulation.? For now heart healthy diet and NPO at midnight. -continue Protonix -on 06/05. 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 She has had arthritis and cramping for some time and even takes baclofen for. -continue baclofen scheduled and [facility]
[2023-06-05] MEDS: dilTIAZem HCL CD 120 MG CAP.24HR PO (08:24)
[2023-06-05] MEDS: METOPROLOL SUCCINATE EXT REL 50 MG TABCR PO (08:24)
--- NOTE | 2023-06-05 09:45 | PM.PNCARD ---
Progress Note: A&P Assessment and Plan (1) A-fib: Code(s): I48.91 - Unspecified atrial fibrillation Status: Acute Assessment and Plan: Heart rate is still elevated. Will increase her metoprolol succinate 200 mg daily. Continue her current dose of diltiazem. Can adjust these medications as need be. Hold off on anticoagulation at least at this point. Plan was for left atrial appendage occluder evaluation as an outpatient. Obviously this may change depending on if she truly has a pulmonary embolism or not. Will defer that management to hospitalist service (2) Hypertension: Code(s): I10 - Essential (primary) hypertension Status: Acute Assessment and Plan: Continue home regimen (3) D-dimer, elevated: Code(s): R79.89 - Other specified abnormal findings of blood chemistry Status: Acute Assessment and Plan: CT PE protocol to be performed had IV contrast dye allergy prep here at [place]. (4) Shortness of breath: Code(s): R06.02 - Shortness of breath Status: Acute Assessment and Plan: Predominantly related to RSV virus (5) Gastrointestinal hemorrhage: Code(s): K92.2 - Gastrointestinal hemorrhage, unspecified Status: Acute Assessment and Plan: History of GI bleed admitted at the time to [facility] and not on anticoagulation because of it Subjective Date/time seen: 06/05/23 09:45 Interval history: 82-year-old with RSV, shortness of breath and atrial fibrillation Date of service 06/05/2023: She feels fine. She has no chest pain or shortness of breath. Review of Systems Review of Systems: All systems reviewed & are unremarkable except as noted in HPI and below Constitutional: Constitutional: Denies body ache(s) and Denies excessive sweating Eyes: Eyes: Denies blurry vision ENT: Reports Normal hearing present Cardiovascular: Cardiovascular: Denies chest pain and Reports dyspnea Respiratory: Respiratory: Reports dyspnea Gastrointestinal: Gastrointestinal: Denies abdominal pain Genitourinary: Genitourinary: Denies hematuria Musculoskeletal: Musculoskeletal: Denies back pain Integumentary/Breasts: Skin/Breast: Denies dry skin Neurologic: Reports Normal hearing present and Denies Abnormal speech present Psychiatric: Psychiatric: Denies anxiety Endocrine: Endocrine: Denies excessive sweating Hematologic/Lymphatic: Hematologic/Lymphatic: Denies easy bleeding Allergic/Immunologic: Allergic/Immunologic: Denies GI upset with certain foods Exam Narrative: Awake alert oriented appears stated age Const: General: comfortable and no acute distress HENMT: Face/Nose/Sinus: Normal nares present Mouth: Yes moist mucous membranes Eyes: General: appearance normal, both eyes and all related structures Sclera: sclerae normal Neck: Neck: supple and no JVD Carotids: no bruits Chest: Other: No reproducible chest wall pain to palpation Resp: Effort & Inspection: normal respiratory effort Auscultation: diminished lung sounds Cardio: Rate: tachycardic Rhythm: abnormal rhythm irregularly irregular Heart sounds: no murmurs GI: Inspection: non-distended Skin: General skin exam: normal color Neuro: Cranial nerves: Yes Normal hearing present Speech: normal speech and No Abnormal speech present Extrem: General: normal to inspection Psych: Mental Status: mental status grossly normal Affect: normal affect Objective Data Vital Signs Vital Signs: Vital Signs - 24 hr 06/04/23 16:00 06/04/23 16:00 06/04/23 18:00 Temperature Pulse Rate 116 H 129 H Respiratory Rate Blood Pressure Pulse Oximetry 94 Oxygen Delivery Nasal Cannula Oxygen Flow Rate 2 06/04/23 16:00 06/04/23 18:27 06/04/23 20:44 Temperature 36.3 C L 36.3 C L Pulse Rate 113 H 123 H 104 H Respiratory Rate 16 18 Blood Pressure 120/70 128/68 Pulse Oximetry 96 94 Oxygen Delivery Oxygen Flow Rate
[2023-06-05] MEDS: METOPROLOL TARTRATE 25 MG TABLET PO (10:19)
[2023-06-05] MEDS: LORATADINE 10 MG TABLET PO (10:20)
[2023-06-05] MEDS: GABAPENTIN 300 MG CAPSULE PO ×2 (10:20→17:21)
[2023-06-05] MEDS: BACLOFEN 5 MG TABLET PO (10:20)
[2023-06-05] MEDS: PANTOPRAZOLE 40 MG TABLET PO (10:20)
[2023-06-05] MEDS: LIDOCAINE 5% PATCH 1 PATCH TRANSDERM (10:22)
--- NOTE | 2023-06-05 10:53 | WPDGICN ---
Assessment and Plan Assessment and plan (1) Duodenal ulcer disease: Code(s): K26.9 - Duodenal ulcer, unspecified as acute or chronic, without hemorrhage or perforation Status: Acute Assessment and Plan: in March when she was hospitalized with melena she was found have multiple duodenal ulcers, 1 up to 20 mm in diameter. She has been taking pantoprazole since that time. (2) Atrial fibrillation with rapid ventricular response: Code(s): I48.91 - Unspecified atrial fibrillation Status: Acute Assessment and Plan: So far she has been treated with Cardizem and Toprol. It is felt that she will benefit from anticoagulation. She needs to be cleared from GI before long-term anticoagulation. Will schedule her for EGD and colonoscopy (3) Gastrointestinal hemorrhage: Code(s): K92.2 - Gastrointestinal hemorrhage, unspecified Status: Acute Assessment and Plan: she had melena March when her hemoglobin dropped to 8.3. Currently it is 11.1, up from 9.8 1 month ago. She states that she is no longer having black stools. (4) Shortness of breath: Code(s): R06.02 - Shortness of breath Status: Acute Assessment and Plan: There is concern about possible pulmonary embolism. She is being pre treated with steroids so that she can have a V/Q scan with contrast. (5) RSV (acute bronchiolitis due to respiratory syncytial virus): Code(s): J21.0 - Acute bronchiolitis due to respiratory syncytial virus Status: Acute Plan EGD and colonoscopy tomorrow GI Consult Note Consult date/time: 06/05/23 10:53 HPI: Kerri Scott is a 82 year old female Who was admitted here this time with shortness of breath and chest discomfort. Troponin was negative x2. She had a V/Q scan done which showed intermediate probability of PE. She had been hospitalized just a week or so prior to that with AFib and was discharged on Toprol XL 50 mg and Cardizem 120 mg and had been taking those medications. She has not been placed on an anticoagulant because she was hospitalized in [facility] in March where she had been admitted with melena and anemia and was found to have apparently 7 duodenal ulcers. She was taking NSAIDs that time and was told not to take them anymore. She has been on pantoprazole since then. She was seen in our office couple weeks ago with that history her hemoglobin is found to be up to 9.8 she has never had a colonoscopy and she was advised to do that sometime in the near future. Now it is felt that she will need long-term anticoagulation. I explainedtothe patient that we will therefore need to exclude possible bleeding or potential bleeding sources in the colon and will re-examine her stomach. Her concern is that when she had endoscopy in [place] her throat was sore for 4 days afterwards. Review of Systems Review of Systems: All systems reviewed & are unremarkable except as noted in HPI and below PMFSH Past Medical History Medical History Arthritis Carotid artery stenosis Diverticulitis Duodenal ulcer disease Hyperlipemia Hypertension Nicotine dependence, cigarettes, in remission Upper GI bleed (03/2023) Secondary to duodenal ulcers from NSAIDs. Surgical History Surgical History History of bladder repair surgery History of cataract extraction with lens replacement History of cholecystectomy History of hysterectomy History of right-sided carotid endarterectomy History of tonsillectomy Family History Family History Mother Family history of schizophrenia Father Heart failure Sibling Brain tumor Other Family history of malignant neoplasm Social History Social History Social Histo
--- NOTE | 2023-06-05 11:27 | PC.NURSE ---
Per nurse request, new IV attempted due to infiltration/pain. Two attempts on R forearm. Vein blew each time. Patient very calm and cooperative.
--- NOTE | 2023-06-05 13:28 | PCOTNOTE ---
Attempted OT evaluation in AM; per RN pt.'s heart rate is high and hold until after lunch. Attempt made again in PM and pt. is out of her room for testing. Will attempt again as able
--- NOTE | 2023-06-05 15:37 | PCPTNOTE ---
attempted PT eval, pt out of room getting CT 1400
[2023-06-05] MEDS: BISACODYL 5 MG TABLET EC 10 MG PO ×2 (17:20→20:37)
[2023-06-05] MEDS: polyethylene glycoL 3350 238 GM BOTTLE PO (17:21)
[2023-06-05] MEDS: SIMVASTATIN 10 MG TABLET PO (20:38)
[2023-06-06] VITALS (26 sets, daily range): BP systolic 103–128; BP diastolic 58–83; PULSE 67–135; RESP 12–22; TEMP 36.1–36.5; O2SAT 89–100; BMI 23.1
[2023-06-06 05:10] LABS: Basophils Percent Auto 0.1 % (0.2-1.2); Hematocrit 36.5 % (37.0-47.0); Hemoglobin 11.3 g/dL (12.0-15.0); Immature Granulocyte Absolute 0.04 K/mm3 (0.00-0.031); Immature Granulocyte Percent A 0.5 % (0-0.5); Lymphocytes Absolute Auto 0.87 K/mm3 (0.9-3.2); Lymphocytes Percent Auto 10.8 % (18.3-44.2); Mean Corpuscular Hemoglobin 29.1 pg (26-34); Mean Corpuscular Volume 94.1 fl (80-100); Mean Platelet Volume 10.9 fl (7.4-10.4); Monocytes Absolute Auto 0.7 K/mm3 (0.1-0.6); Monocytes Percent Auto 9.1 % (2.6-8.5); Neutrophils Absolute Auto 6.4 K/mm3 (1.3-6.7); Neutrophils Percent Auto 79.5 % (45.5-73.1); Platelet Count Result 217 k/mm3 (150-375); Red Blood Count 3.88 M/mm3 (4.2-5.4); Red Cell Distribution Width 14.6 % (11.5-14.5); White Blood Count 8.1 K/mm3 (4.5-10.0)
[2023-06-06 05:25] LABS: Anion Gap 8 mmol/L (8-16); Blood Urea Nitrogen 17 mg/dL (7-17); Calcium 9.2 mg/dL (8.4-10.2); Carbon Dioxide 26 mmol/L (22-30); Chloride 104 mmol/L (98-107); Estimated Glomerular Filt Rate > 60; Glucose 121 mg/dL (65-110); Magnesium 2.1 mg/dL (1.6-2.3); Potassium 3.7 mmol/L (3.4-5.0); Sodium 138 mmol/L (137-145)
--- NOTE | 2023-06-06 07:36 | PM.IMPN ---
Progress Note: A&P Assessment and Plan (1) Shortness of breath: Code(s): R06.02 - Shortness of breath Status: Acute (2) Abnormal urinalysis: Code(s): R82.90 - Unspecified abnormal findings in urine Status: Acute (3) Allergic to IV contrast: Code(s): Z91.041 - Radiographic dye allergy status Status: Acute (4) D-dimer, elevated: Code(s): R79.89 - Other specified abnormal findings of blood chemistry Status: Acute (5) Atrial fibrillation with RVR: Code(s): I48.91 - Unspecified atrial fibrillation Status: Acute (6) Hypertension: Code(s): I10 - Essential (primary) hypertension Status: Acute (7) Duodenal ulcer disease: Code(s): K26.9 - Duodenal ulcer, unspecified as acute or chronic, without hemorrhage or perforation Status: Acute (8) Osteoarthritis, knee: Code(s): M17.10 - Unilateral primary osteoarthritis, unspecified knee Status: Acute Plan This is a pleasant 82-year-old white female with a history of AFib, previous tobacco abuse, hyperlipidemia, hypertension, 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 She was discharged on 05/14/2023 an episode of AFib with RVR.? Sent home with home health on Toprol XL 50 mg daily and Cardizem 120 mg extended release daily.? She had been taking her medications as prescribed.? She was not prescribed anticoagulation as she had a suspected upper GI bleed recently and via EGD was found to have many nonbleeding duodenal ulcers.? She was advised to stop NSAID use.? She returns as she complained of shortness of breath.? Transfer from [place] to [place] for pretreatment of contrast due to allergy.? Arrived on 06/04/2023 #Chest tightness/shortness of breath -this has resolved completely.? Likely related to her atrial fibrillation with rapid ventricular rate or the RSV.? Troponin negative x2. -while at [place] the patient had a D-dimer test performed but age adjusted is within normal limits.? Still a V/Q scan was performed which demonstrates intermediate probability of PE.? There are certainly other reasons for the patient to have hypoxia and chest tightness but in light of this already performed test we will conduct a pretreatment for contrast allergy and assess for evidence of PE.? The patient wants to move forward with this as it can affect her need for anticoagulation.? She reports 60 years prior had transient trouble breathing after receiving contrast but was not of great issue after receiving Benadryl.? She will receive prednisone scheduled and IV Benadryl.? Continue pulse ox and telemetry and monitoring. -CTA chest completed on 06/05/2023 demonstrating small to moderate bilateral pleural effusions with bibasilar atelectatic change. Chronic L1 compression fracture. No evidence of PE. #AFib with RVR -she had been restarted on her home meds diltiazem 120 mg p.o. q.a.m. and metoprolol 50 mg p.o. q.a.m.. Increased to metoprolol 100 mg p.o. q.a.m. on 06/05/2023. -on 06/06 she remains in RVR between 100 and 130. We have room to increase metoprolol. Will allow Cardiology to adjust. -anticoagulation/atrial appendage occluder device decision pending GI recs and Cardiology recs. #RSV -continue supportive care #Acute hypoxic respiratory failure -resolved. Continue to monitor O2. #CKD stage IIIA -continue to monitor.? Stable. Received IV contrast on 06/05/2023 #Suspected upper GI bleed with history of duodenal ulcer disease thought to be secondary to NSAID use -no longer takes NSAIDs. Continue Protonix. To go for EGD/colonoscopy today with GI. 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 She has had arthritis and cramping for some time and even takes baclofen for. -continue baclofen scheduled and Tylenol p.r.n..? Consulted PT OT.? I have placed lidocaine pat
[2023-06-06] MEDS: dilTIAZem HCL CD 120 MG CAP.24HR PO (09:10)
[2023-06-06] MEDS: LORATADINE 10 MG TABLET PO (09:12)
[2023-06-06] MEDS: GABAPENTIN 300 MG CAPSULE PO ×2 (09:12→16:56)
[2023-06-06] MEDS: METOPROLOL SUCCINATE EXT REL 100 MG TABCR PO (09:15)
[2023-06-06] MEDS: BACLOFEN 5 MG TABLET PO (09:16)
[2023-06-06] MEDS: PANTOPRAZOLE 40 MG TABLET PO (09:16)
[2023-06-06] MEDS: NITROFURANTOIN MONOHYD MACROCR 100 MG CAP PO ×2 (09:27→21:07)
--- NOTE | 2023-06-06 09:53 | PM.PNCARD ---
Progress Note: A&P Assessment and Plan (1) A-fib: Code(s): I48.91 - Unspecified atrial fibrillation Status: Acute Assessment and Plan: Heart rate is still elevated. It does not look like her metoprolol was increased to 200mg daily yesterday as planned. Will adjust metoprolol ro 200mg daily starting tomorrow and can give p.r.n. IV lopressor in the meantime. Continue her current dose of diltiazem. Can adjust these medications as need be. Hold off on anticoagulation at least at this point. Plan was for left atrial appendage occluder evaluation as an outpatient. (2) Hypertension: Code(s): I10 - Essential (primary) hypertension Status: Acute Assessment and Plan: Continue home regimen (3) D-dimer, elevated: Code(s): R79.89 - Other specified abnormal findings of blood chemistry Status: Acute Assessment and Plan: CTA did not show any PE (4) Shortness of breath: Code(s): R06.02 - Shortness of breath Status: Acute Assessment and Plan: Predominantly related to RSV virus (5) Gastrointestinal hemorrhage: Code(s): K92.2 - Gastrointestinal hemorrhage, unspecified Status: Acute Assessment and Plan: History of GI bleed admitted at the time to [facility] and not on anticoagulation because of it Subjective Date/time seen: 06/06/23 09:53 Interval history: 82-year-old with RSV, shortness of breath and atrial fibrillation Date of service 06/05/2023: She feels fine. She has no chest pain or shortness of breath. Date of service 06/06/2023: Continues to have a cough but denies shortness of breath, chest pain, palpitations. Review of Systems Review of Systems: All systems reviewed & are unremarkable except as noted in HPI and below Constitutional: Constitutional: Denies body ache(s) and Denies excessive sweating Eyes: Eyes: Denies blurry vision ENT: Reports Normal hearing present Cardiovascular: Cardiovascular: Denies chest pain and Reports dyspnea Respiratory: Respiratory: Reports dyspnea Gastrointestinal: Gastrointestinal: Denies abdominal pain Genitourinary: Genitourinary: Denies hematuria Musculoskeletal: Musculoskeletal: Denies back pain Integumentary/Breasts: Skin/Breast: Denies dry skin Neurologic: Reports Normal hearing present and Denies Abnormal speech present Psychiatric: Psychiatric: Denies anxiety Endocrine: Endocrine: Denies excessive sweating Hematologic/Lymphatic: Hematologic/Lymphatic: Denies easy bleeding Allergic/Immunologic: Allergic/Immunologic: Denies GI upset with certain foods Exam Narrative: Awake alert oriented appears stated age Const: General: comfortable and no acute distress HENMT: Face/Nose/Sinus: Normal nares present Mouth: Yes moist mucous membranes Eyes: General: appearance normal, both eyes and all related structures Sclera: sclerae normal Neck: Neck: supple and no JVD Carotids: no bruits Chest: Other: No reproducible chest wall pain to palpation Resp: Effort & Inspection: normal respiratory effort Auscultation: diminished lung sounds Cardio: Rate: tachycardic Rhythm: abnormal rhythm irregularly irregular Heart sounds: no murmurs GI: Inspection: non-distended Skin: General skin exam: normal color Neuro: Cranial nerves: Yes Normal hearing present Speech: normal speech and No Abnormal speech present Extrem: General: normal to inspection Psych: Mental Status: mental status grossly normal Affect: normal affect Objective Data Vital Signs Vital Signs: Vital Signs - 24 hr 06/05/23 10:19 06/05/23 11:40 06/05/23 12:00 Temperature 36.6 C Pulse Rate 123 H 120 H Respiratory Rate 16 Blood Pressure 131/83 Pulse Oximetry 93 Oxygen Delivery Room Air 06/05/23 16:00 06/05/23 10:00 06/05/23 12:00 Temperature Pulse Rate 132 H 123 H Respiratory Rate Blood Pressure Pulse Oximetry Oxygen Delivery Room Air
[2023-06-06] MEDS: MAGNESIUM CITRATE 300 ML BTL 150 ML PO (10:40)
[2023-06-06] MEDS: LACTATED RINGERS 1,000 ML 150 ML IV CONT (14:03)
--- NOTE | 2023-06-06 14:30 | WPDANESEPPF ---
Anes - Initial Pre Proc Eval Procedure: Operation Date: 06/06/23 15:00 Proposed Procedures p Esophagogastroduodenoscopy & Colonoscopy - Joaquin Ang MD Date/Time: 06/06/23 14:30 Surgeon: Carmel Goff MD Pre Op Diagnosis: Afib, +D-dimer Patient Data Age: 82 Gender: F Height: 1.6 m Weight: 59.4 kg Last Vital Signs Temp 97 F L 06/06/23 13:48 Pulse 67 06/06/23 13:48 Resp 17 06/06/23 13:48 BP 122/72 06/06/23 13:48 Pulse Ox 96 06/06/23 13:48 O2 Del Method Room Air 06/06/23 13:48 O2 Flow Rate 2 06/04/23 16:00 Allergies Allergy/AdvReac Type Severity Reaction Status Date / Time codeine Allergy Intermediate unknown Verified 06/03/23 13:54 iodine Allergy Intermediate Unknown Verified 06/03/23 13:54 meperidine [Demerol] Allergy Intermediate Unknown Verified 06/03/23 13:54 Penicillins Allergy Intermediate Unknown Verified 06/03/23 13:54 propoxyphene [Darvon-N] Allergy Intermediate Unknown Verified 06/03/23 13:54 tramadol Allergy Intermediate Unknown Verified 06/03/23 13:54 Anesthesia Med Allergy Severe Difficulty Uncoded 06/03/23 13:54 Breathing Darvocet A500 Allergy Intermediate Unknown Uncoded 06/03/23 13:54 Home Medications Medication Instructions Recorded Confirmed Type loratadine 10 mg tablet 10 mg PO DAILY 11/30/22 06/04/23 History pantoprazole 40 mg tablet,delayed 40 mg PO DAILY 05/10/23 06/04/23 History release (Protonix) simvastatin 10 mg tablet 10 mg PO HS 05/10/23 06/04/23 History acetaminophen 500 mg capsule 500 mg PO DAILY PRN Pain (Scale 06/04/23 06/04/23 History Score 1-3) baclofen 5 mg tablet 5 mg PO DAILY 06/04/23 06/04/23 History gabapentin 300 mg capsule 300 mg PO BID 06/04/23 06/04/23 History Laboratory Tests 06/06/23 04:21 WBC 8.1 K/mm3 (4.5-10.0) RBC 3.88 L M/mm3 (4.2-5.4) Hgb 11.3 L g/dL (12.0-15.0) Hct 36.5 L % (37.0-47.0) MCV 94.1 fl (80-100) MCH 29.1 pg (26-34) MCHC 31.0 L g/dl (32-36) RDW 14.6 H % (11.5-14.5) Plt Count 217 k/mm3 (150-375) MPV 10.9 H fl (7.4-10.4) Immature Gran % (Auto) 0.5 % (0-0.5) Neut % (Auto) 79.5 H % (45.5-73.1) Lymph % (Auto) 10.8 L % (18.3-44.2) Mcculloch % (Auto) 9.1 H % (2.6-8.5) Eos % (Auto) 0.0 % (0-4.4) Baso % (Auto) 0.1 L % (0.2-1.2) Lymph # (Auto) 0.87 L K/mm3 (0.9-3.2) Mcculloch # (Auto) 0.7 H K/mm3 (0.1-0.6) Eos # (Auto) 0.0 K/mm3 (0-0.3) Baso # (Auto) 0.0 K/mm3 (0.0-0.1) Abs Immat Gran (auto) 0.04 H K/mm3 (0.00-0.031) Absolute Neuts (auto) 6.4 K/mm3 (1.3-6.7) Absolute Nucleated RBC 0.0 K/mm3 (0.0-0.012) Nucleated RBC % 0.0 % (0.0-0.2) Sodium 138 mmol/L (137-145) Potassium 3.7 mmol/L (3.4-5.0) Chloride 104 mmol/L (98-107) Carbon Dioxide 26 mmol/L (22-30) Anion Gap 8 mmol/L (8-16) BUN 17 mg/dL (7-17) Creatinine 0.80 mg/dL (0.7-1.0) Estim Creat Clear Calc Not Reportable Estimated GFR > 60 (59 - ) Glucose 121 H mg/dL (65-110) Calcium 9.2 mg/dL (8.4-10.2) Magnesium 2.1 mg/dL (1.6-2.3) Patient hx anesthesia problems: none Family hx anesthesia problems: none Results Review: All pre-operative results and documents have been reviewed as part of the pre-operative evaluation. [facility] Past Medical History Medical History Arthritis Carotid artery stenosis Diverticulitis Duodenal ulcer disease Hyperlipemia Hypertension Nicotine dependence, cigarettes, in remission Upper GI bleed (03/2023) Secondary to duodenal ulcers from NSAIDs. Surgical History Surgical History History of bladder repair surgery History of cataract extraction with lens replacement History of cholecystectomy History of hysterectomy History of right-sided carotid endarterectomy History of tonsillectomy Family Histo
--- NOTE | 2023-06-06 15:27 | SUR.PREOP ---
[address] Edwards regarding pt's heart rate in the 120-130s with her pulse oximetry dropping to 89 on room air. O2 2 lit[address] per [place]. Dr[address] Edwards said he was unable to come over at this time to evaluate the patient. He asked that we relay the information to Dr Ang to see how he wanted to proceed. [address] Ang about patients' condition and anesthesia's concerns. Dr. Ang said he would cancel the case and notify the hospitalist of pt's condition. 1522 Patient transferred back to IMU with her telemtry and O2 at 2 L n/c. Report called to Jayda RAINES in IMU.
--- NOTE | 2023-06-06 15:33 | WPDGIPROGNO ---
Progress Note: A&P Assessment and Plan (1) Duodenal ulcer disease: Code(s): K26.9 - Duodenal ulcer, unspecified as acute or chronic, without hemorrhage or perforation Status: Acute Assessment and Plan: in March when she was hospitalized with melena she was found have multiple duodenal ulcers, 1 up to 20 mm in diameter. She has been taking pantoprazole since that time. (2) Atrial fibrillation with rapid ventricular response: Code(s): I48.91 - Unspecified atrial fibrillation Status: Acute Assessment and Plan: So far she has been treated with Cardizem and Toprol. It is felt that she will benefit from anticoagulation. She needs to be cleared from GI before long-term anticoagulation. Will schedule her for EGD and colonoscopy (3) Gastrointestinal hemorrhage: Code(s): K92.2 - Gastrointestinal hemorrhage, unspecified Status: Acute Assessment and Plan: she had melena March when her hemoglobin dropped to 8.3. Currently it is 11.1, up from 9.8 1 month ago. She states that she is no longer having black stools. (4) Shortness of breath: Code(s): R06.02 - Shortness of breath Status: Acute Assessment and Plan: There is concern about possible pulmonary embolism. She is being pre treated with steroids so that she can have a V/Q scan with contrast. CTA was negative for embolism. Today however when she came down for her endoscopic procedures she was short of breath and oxygen levels were in the 80s. (5) RSV (acute bronchiolitis due to respiratory syncytial virus): Code(s): J21.0 - Acute bronchiolitis due to respiratory syncytial virus Status: Acute Plan EGD and colonoscopy tomorrow Because of her tachycardia and low oxygen levels anesthesia felt and I agree that she is not stable enough to have procedures today. I will keep are clear liquid diet and hopefully we can proceed tomorrow. Subjective Date/time seen: 06/06/23 15:33 she came down for her endoscopic procedures but was somewhat short of breath. Actually her oxygen levels are in the 80s. Also she has tachycardia with the heart rate between 05/15/2029. This is in contrast to the rate documented by the floor of being in the 60s. Anesthesia has seen her and determined that her she is not stable enough to have procedures today he would like to see her heart rate better controlled which in turn should help with her oxygenation. Exam Const: General: cooperative and healthy appearing Orientation/consciousness: patient oriented x3 Other: Loquacious HENMT: Head: normal to inspection Ears: hearing grossly normal bilaterally Mouth: Yes Normal oral and palatal mucosa present Eyes: General: appearance normal, both eyes and all related structures Neck: Neck: normal visual inspection Chest: Chest palpation & inspection: normal inspection of the chest Resp: Effort & Inspection: normal respiratory effort Auscultation: clear to auscultation bilaterally Cardio: Rate: regular rate Rhythm: regular rhythm GI: Inspection: normal to inspection GI Palp: No abdominal tenderness, Yes Soft to palpation and Yes No hepatosplenomegaly present Auscultation: normal bowel sounds Skin: General skin exam: normal color and no jaundice Neuro: General: patient oriented x3 Speech: normal speech Objective Data Vital Signs Vital Signs: Vital Signs - 24 hr 06/05/23 16:00 06/05/23 16:00 06/05/23 16:00 Temperature 36.2 C L Pulse Rate 101 H 102 H Respiratory Rate 20 Blood Pressure 118/79 Pulse Oximetry 97 Oxygen Delivery Room Air 06/05/23 18:00 06/05/23 20:31 06/05/23 20:00 Temperature 36.3 C L Pulse Rate 111 H 122 H 109 H Respiratory Rate 18 Blood Pressure 122/80 Pulse Oximetry 96 Oxygen Delivery 06/05/23 20:00 06/05/23 22:00 06/06/23 00:35 Temperature 36.3 C L Pulse Rate 98 103 H Respiratory Rate 18 Blood Pressure 128/76 Pulse Oxim
[2023-06-06] MEDS: METOPROLOL TARTRATE 50 MG TAB PO (15:49)
[2023-06-06] MEDS: SIMVASTATIN 10 MG TABLET PO (21:07)
[2023-06-07] VITALS (24 sets, daily range): BP systolic 83–144; BP diastolic 41–96; PULSE 78–120; RESP 18–23; TEMP 36.5–36.8; O2SAT 93–100
[2023-06-07 05:32] LABS: Hematocrit 40.5 % (37.0-47.0); Mean Corpuscular HGB Conc 29.6 g/dl (32-36); Mean Corpuscular Hemoglobin 28.5 pg (26-34); Mean Corpuscular Volume 96.2 fl (80-100); Mean Platelet Volume 10.8 fl (7.4-10.4); Platelet Count Result 239 k/mm3 (150-375); Red Blood Count 4.21 M/mm3 (4.2-5.4); Red Cell Distribution Width 14.7 % (11.5-14.5); White Blood Count 7.7 K/mm3 (4.5-10.0)
[2023-06-07 05:40] LABS: Anion Gap 10 mmol/L (8-16); Blood Urea Nitrogen 15 mg/dL (7-17); Carbon Dioxide 27 mmol/L (22-30); Chloride 104 mmol/L (98-107); Estimated CRCL calculation 38 ml/min; Estimated Glomerular Filt Rate > 60; Glucose 96 mg/dL (65-110); Magnesium 2.1 mg/dL (1.6-2.3); Potassium 3.4 mmol/L (3.4-5.0); Sodium 141 mmol/L (137-145)
[2023-06-07] MEDS: METOPROLOL SUCCINATE EXT REL 50 MG TABCR 150 MG PO (06:08)
[2023-06-07] MEDS: FUROSEMIDE INJ 40 MG/4 ML VIAL 20 MG IV PUSH (08:39)
[2023-06-07] MEDS: LORATADINE 10 MG TABLET PO (08:42)
[2023-06-07] MEDS: PANTOPRAZOLE 40 MG TABLET PO (08:42)
[2023-06-07] MEDS: dilTIAZem HCL CD 120 MG CAP.24HR PO (08:42)
[2023-06-07] MEDS: NITROFURANTOIN MONOHYD MACROCR 100 MG CAP PO ×2 (08:42→21:07)
[2023-06-07] MEDS: MAGNESIUM CITRATE 300 ML BTL 150 ML PO (08:42)
[2023-06-07] MEDS: GABAPENTIN 300 MG CAPSULE PO ×2 (08:42→16:46)
[2023-06-07] MEDS: BACLOFEN 5 MG TABLET PO (08:42)
--- NOTE | 2023-06-07 10:39 | PM.PNCARD ---
Progress Note: A&P Assessment and Plan (1) A-fib: Code(s): I48.91 - Unspecified atrial fibrillation Status: Acute Assessment and Plan: Heart rate is still elevated. Metoprolol was increased to 200mg daily yesterday. Will also increase her diltiazem to 240mg starting tomorrow and give 30mg now. Can adjust these medications as need be. Plan for EGD to evaluate whether or not anticuagulation can be started, but EGD cancelled yesterday due to tachycardia. Looks like plan is to attempt again tomorrow. Hold off on anticoagulation until GI evaluation is complete. Plan was for left atrial appendage occluder evaluation as an outpatient as well. (2) Hypertension: Code(s): I10 - Essential (primary) hypertension Status: Acute Assessment and Plan: Continue home regimen (3) D-dimer, elevated: Code(s): R79.89 - Other specified abnormal findings of blood chemistry Status: Acute Assessment and Plan: CTA did not show any PE (4) Shortness of breath: Code(s): R06.02 - Shortness of breath Status: Acute Assessment and Plan: Predominantly related to RSV virus (5) Gastrointestinal hemorrhage: Code(s): K92.2 - Gastrointestinal hemorrhage, unspecified Status: Acute Assessment and Plan: History of GI bleed admitted at the time to [facility] and not on anticoagulation because of it Subjective Date/time seen: 06/07/23 10:39 Interval history: 82-year-old with RSV, shortness of breath and atrial fibrillation Date of service 06/05/2023: She feels fine. She has no chest pain or shortness of breath. Date of service 06/06/2023: Continues to have a cough but denies shortness of breath, chest pain, palpitations. Date of service 06/07/2023: Heart rate remains somewhat elevated, but she continues to deny any shortness of breath, palpitations, chest pain. No complaints today. Review of Systems Review of Systems: All systems reviewed & are unremarkable except as noted in HPI and below Constitutional: Constitutional: Denies body ache(s) and Denies excessive sweating Eyes: Eyes: Denies blurry vision ENT: Reports Normal hearing present Cardiovascular: Cardiovascular: Denies chest pain and Reports dyspnea Respiratory: Respiratory: Reports dyspnea Gastrointestinal: Gastrointestinal: Denies abdominal pain Genitourinary: Genitourinary: Denies hematuria Musculoskeletal: Musculoskeletal: Denies back pain Integumentary/Breasts: Skin/Breast: Denies dry skin Neurologic: Reports Normal hearing present and Denies Abnormal speech present Psychiatric: Psychiatric: Denies anxiety Endocrine: Endocrine: Denies excessive sweating Hematologic/Lymphatic: Hematologic/Lymphatic: Denies easy bleeding Allergic/Immunologic: Allergic/Immunologic: Denies GI upset with certain foods Exam Narrative: Awake alert oriented appears stated age Const: General: comfortable and no acute distress HENMT: Face/Nose/Sinus: Normal nares present Mouth: Yes moist mucous membranes Eyes: General: appearance normal, both eyes and all related structures Sclera: sclerae normal Neck: Neck: supple and no JVD Carotids: no bruits Chest: Other: No reproducible chest wall pain to palpation Resp: Effort & Inspection: normal respiratory effort Auscultation: diminished lung sounds Cardio: Rate: tachycardic Rhythm: abnormal rhythm irregularly irregular Heart sounds: no murmurs GI: Inspection: non-distended Skin: General skin exam: normal color Neuro: Cranial nerves: Yes Normal hearing present Speech: normal speech and No Abnormal speech present Extrem: General: normal to inspection Psych: Mental Status: mental status grossly normal Affect: normal affect Objective Data Vital Signs Vital Signs: Vital Signs - 24 hr 06/06/23 11:40 06/06/23 12:00 06/06/23 13:48 Temperature 36.4 C 36.1 C L Pulse Rate 125 H 67 Respiratory Rate 22 H
--- NOTE | 2023-06-07 10:48 | PM.IMPN ---
Progress Note: A&P Assessment and Plan (1) Shortness of breath: Code(s): R06.02 - Shortness of breath Status: Acute (2) Abnormal urinalysis: Code(s): R82.90 - Unspecified abnormal findings in urine Status: Acute (3) Allergic to IV contrast: Code(s): Z91.041 - Radiographic dye allergy status Status: Acute (4) D-dimer, elevated: Code(s): R79.89 - Other specified abnormal findings of blood chemistry Status: Acute (5) Atrial fibrillation with RVR: Code(s): I48.91 - Unspecified atrial fibrillation Status: Acute (6) Hypertension: Code(s): I10 - Essential (primary) hypertension Status: Acute (7) Duodenal ulcer disease: Code(s): K26.9 - Duodenal ulcer, unspecified as acute or chronic, without hemorrhage or perforation Status: Acute (8) Osteoarthritis, knee: Code(s): M17.10 - Unilateral primary osteoarthritis, unspecified knee Status: Acute Plan This is a pleasant 82-year-old white female with a history of AFib, previous tobacco abuse, hyperlipidemia, hypertension, 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 She was discharged on 05/14/2023 an episode of AFib with RVR.? Sent home with home health on Toprol XL 50 mg daily and Cardizem 120 mg extended release daily.? She had been taking her medications as prescribed.? She was not prescribed anticoagulation as she had a suspected upper GI bleed recently and via EGD was found to have many nonbleeding duodenal ulcers.? She was advised to stop NSAID use.? She returns as she complained of shortness of breath.? Transfer from [place] to [place] for pretreatment of contrast due to allergy.? Arrived on 06/04/2023 #Chest tightness/shortness of breath -this has resolved completely.? Likely related to her atrial fibrillation with rapid ventricular rate or the RSV.? Troponin negative x2. -while at [place] the patient had a D-dimer test performed but age adjusted is within normal limits.? Still a V/Q scan was performed which demonstrates intermediate probability of PE.? Main reason for transfer was to receive pretreatment for contrast allergy. CTA chest was completed on 06/05 which demonstrated small to moderate bilateral pleural effusions with bibasilar atelectatic change, chronic L1 compression fracture but no evidence of PE. Normal saline, Benadryl, and prednisone has since been stopped #Acute hypoxic respiratory failure/RSV -she has been weaned down to 1 L nasal cannula. -on 06/07 given 1 time dose Lasix 20 mg IV. She has developed some crackles and receive normal saline for the contrast. BNP was elevated on admission at 5000. Surface echo 05/11/2023 demonstrated EF of 65-70%, there was no comment on her diastolic function. -bilateral [id number] pleural effusions. Monitor that. -supportive care for RSV #AFib with RVR -she had been restarted on her home meds diltiazem 120 mg p.o. q.a.m. and metoprolol 50 mg p.o. q.a.m.. Increased to metoprolol 100 mg p.o. q.a.m. on 06/05/2023. -on 06/07 she will again have increase/titration with Cardiology. #CKD stage IIIA -continue to monitor.? Stable. Received IV contrast on 06/05/2023 #Suspected upper GI bleed with history of duodenal ulcer disease thought to be secondary to NSAID use -no longer takes NSAIDs. Continue Protonix. To go for EGD/colonoscopy today with GI. -EGD/colonoscopy on 06/06 postponed due to hypoxia and tachycardia. 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 She has had arthritis and cramping for some time and even takes baclofen for. -continue baclofen scheduled and Tylenol p.r.n..? Consulted PT OT.? I have placed lidocaine patch p.r.n. for additional pain regimen.? Apply heat pads as necessary as she reports that helps a lot. -06/05/2023 she no longer complains of this pain. -on 0
[2023-06-07] MEDS: dilTIAZem HCL 30 MG TABLET PO (11:48)
--- NOTE | 2023-06-07 12:07 | WPDANESPN ---
Anes - Prog Note Post-Op Date/Time: 06/07/23 12:07 Cardiovascular status: normal Respiratory status: normal Airway patency: baseline Mental status: baseline Post-Op hydration status: normal Vital Signs: Last Vital Signs Temp 36.7 C 06/07/23 11:53 Pulse 120 H 06/07/23 11:53 Resp 20 06/07/23 11:53 BP 125/76 06/07/23 11:53 Pulse Ox 95 06/07/23 11:53 O2 Del Method Nasal Cannula 06/07/23 10:35 O2 Flow Rate 1 06/07/23 10:35 FiO2 88 06/07/23 10:30 Pain Score (VAS): Patient asleep at time of rounding. No nonverbal signs of pain present at that time. I/O: Intake & Output 06/06/23 06/07/23 06/07/23 23:59 07:59 15:59 Intake Total 150 0 Output Total 800 700 300 Balance -650 -700 -300 Laboratory Tests 06/07/23 04:49 06/07/23 04:49 06/07/23 04:49 WBC 7.7 RBC 4.21 Hgb 12.0 Hct 40.5 MCV 96.2 MCH 28.5 MCHC 29.6 L RDW 14.7 H Plt Count 239 MPV 10.8 H Sodium 141 Potassium 3.4 Chloride 104 Carbon Dioxide 27 Anion Gap 10 BUN 15 Creatinine 0.80 Estim Creat Clear Calc 38 Estimated GFR > 60 Glucose 96 Calcium 9.0 Magnesium 2.1 Post-procedural complaints: none Patient Feedback: Patient satisfied with anesthetic care.
[2023-06-07] MEDS: LACTATED RINGERS 1,000 ML 150 ML IV CONT (12:34)
--- NOTE | 2023-06-07 13:02 | SUR.OPER ---
EGD END 1259 COLONOSCOPY START 1301
--- NOTE | 2023-06-07 13:19 | PCPTNOTE ---
The patient treatment was not able to be completed due to patient out of room for GI testing. Will plan to continue treatment per plan of care.
[2023-06-07] MEDS: SIMVASTATIN 10 MG TABLET PO (21:07)
[2023-06-08] VITALS (15 sets, daily range): BP systolic 100–138; BP diastolic 54–89; PULSE 85–144; RESP 18–22; TEMP 36.1–37; O2SAT 9–95
[2023-06-08 04:43] LABS: Basophils Percent Auto 0.5 % (0.2-1.2); Eosinophils Absolute Auto 0.1 K/mm3 (0-0.3); Eosinophils Percent Auto 1.9 % (0-4.4); Hematocrit 37.5 % (37.0-47.0); Hemoglobin 11.5 g/dL (12.0-15.0); Immature Granulocyte Absolute 0.02 K/mm3 (0.00-0.031); Immature Granulocyte Percent A 0.3 % (0-0.5); Lymphocytes Absolute Auto 0.75 K/mm3 (0.9-3.2); Lymphocytes Percent Auto 11.9 % (18.3-44.2); Mean Corpuscular HGB Conc 30.7 g/dl (32-36); Mean Corpuscular Hemoglobin 28.3 pg (26-34); Mean Corpuscular Volume 92.4 fl (80-100); Mean Platelet Volume 10.8 fl (7.4-10.4); Monocytes Absolute Auto 0.8 K/mm3 (0.1-0.6); Monocytes Percent Auto 12.4 % (2.6-8.5); Neutrophils Absolute Auto 4.6 K/mm3 (1.3-6.7); Platelet Count Result 228 k/mm3 (150-375); Red Blood Count 4.06 M/mm3 (4.2-5.4); Red Cell Distribution Width 14.5 % (11.5-14.5); White Blood Count 6.3 K/mm3 (4.5-10.0)
[2023-06-08 05:05] LABS: Anion Gap 5 mmol/L (8-16); Blood Urea Nitrogen 17 mg/dL (7-17); Calcium 8.7 mg/dL (8.4-10.2); Carbon Dioxide 32 mmol/L (22-30); Chloride 102 mmol/L (98-107); Estimated CRCL calculation 43 ml/min; Estimated Glomerular Filt Rate > 60; Glucose 111 mg/dL (65-110); Potassium 3.4 mmol/L (3.4-5.0); Sodium 139 mmol/L (137-145)
--- NOTE | 2023-06-08 07:36 | P.CDI_ITS ---
CDI Query Clarification Request RSV has been identified with a positive swab on 06/04/23, if able, please identify the underlying infectious process if known: * Pneumonia * Bronchitis * Upper Respiratory tract infection. * Lower Respiratory tract infection. * Other/Unknown
--- NOTE | 2023-06-08 07:36 | WPDCDIQUERY2 ---
CDI Query Clarification Request RSV has been identified with a positive swab on 06/04/23, if able, please identify the underlying infectious process if known: Pneumonia Bronchitis Upper Respiratory tract infection. Lower Respiratory tract infection. Other/Unknown
--- NOTE | 2023-06-08 08:00 | P.PNAN_ITS ---
Anes - Prog Note Post-Op Date/Time: 06/08/23 08:00 Cardiovascular status: normal Respiratory status: normal Airway patency: baseline Mental status: baseline Post-Op hydration status: normal Vital Signs: Last Vital Signs Temp 36.3 C L 06/08/23 05:19 Pulse 114 H 06/08/23 05:27 Resp 18 06/08/23 05:19 BP 133/63 06/08/23 05:19 Pulse Ox 92 06/08/23 05:19 O2 Del Method Nasal Cannula 06/08/23 04:00 O2 Flow Rate 1 06/08/23 04:00 FiO2 88 06/07/23 23:38 Pain Score (VAS): 0 I/O: Intake & Output 06/07/23 06/08/23 06/08/23 23:59 07:59 15:59 Intake Total 200 120 Output Total 300 100 Balance -100 20 Laboratory Tests 06/08/23 03:57 06/08/23 03:57 06/08/23 03:57 WBC 6.3 RBC 4.06 L Hgb 11.5 L Hct 37.5 MCV 92.4 MCH 28.3 MCHC 30.7 L RDW 14.5 Plt Count 228 MPV 10.8 H Immature Gran % (Auto) 0.3 Neut % (Auto) 73.0 Lymph % (Auto) 11.9 L [place] % (Auto) 12.4 H Eos % (Auto) 1.9 Baso % (Auto) 0.5 Lymph # (Auto) 0.75 L [place] # (Auto) 0.8 H Eos # (Auto) 0.1 Baso # (Auto) 0.0 Abs Immat Gran (auto) 0.02 Absolute Neuts (auto) 4.6 Absolute Nucleated RBC 0.0 Nucleated RBC % 0.0 Sodium 139 Potassium 3.4 Chloride 102 Carbon Dioxide 32 H Anion Gap 5 L BUN 17 Creatinine 0.70 Estim Creat Clear Calc 43 Estimated GFR > 60 Glucose 111 H Calcium 8.7 Magnesium 2.0 Post-procedural complaints: none Patient Feedback: Patient satisfied with anesthetic care.
[2023-06-08] MEDS: GABAPENTIN 300 MG CAPSULE PO ×2 (09:17→17:28)
[2023-06-08] MEDS: POTASSIUM CHLORIDE 20 MEQ ER TABLET PO (09:17)
[2023-06-08] MEDS: NITROFURANTOIN MONOHYD MACROCR 100 MG CAP PO ×2 (09:18→20:41)
[2023-06-08] MEDS: dilTIAZem HCL CD 240 MG CAP.24HR PO (09:18)
[2023-06-08] MEDS: METOPROLOL SUCCINATE EXT REL 50 MG TABCR 150 MG PO (09:18)
[2023-06-08] MEDS: BACLOFEN 5 MG TABLET PO (09:19)
[2023-06-08] MEDS: PANTOPRAZOLE 40 MG TABLET PO (09:19)
[2023-06-08] MEDS: LORATADINE 10 MG TABLET PO (09:19)
--- NOTE | 2023-06-08 09:40 | PCPTNOTE ---
Attempted to see patient for PT, however per RN patient just worked with OT and heart rate increased and has not gone down yet. RN asked PT to wait to see patient and check back later.
--- NOTE | 2023-06-08 11:15 | PM.PNCARD ---
Progress Note: A&P Assessment and Plan (1) A-fib: Code(s): I48.91 - Unspecified atrial fibrillation Status: Acute Assessment and Plan: Heart rate is still elevated. Continue metoprolol and diltiazem at current doses. Can adjust these medications as need be. Plan for EGD to evaluate whether or not anticuagulation can be started, but EGD cancelled yesterday due to tachycardia. Looks like plan is to attempt again tomorrow. Hold off on anticoagulation until GI evaluation is complete. Plan was for left atrial appendage occluder evaluation as an outpatient as well. Will give a dose of IV digoxin 125 mcg IV times 1 (2) Hypertension: Code(s): I10 - Essential (primary) hypertension Status: Acute Assessment and Plan: Continue home regimen (3) D-dimer, elevated: Code(s): R79.89 - Other specified abnormal findings of blood chemistry Status: Acute Assessment and Plan: CTA did not show any PE (4) Shortness of breath: Code(s): R06.02 - Shortness of breath Status: Acute Assessment and Plan: Predominantly related to RSV virus (5) Gastrointestinal hemorrhage: Code(s): K92.2 - Gastrointestinal hemorrhage, unspecified Status: Acute Assessment and Plan: History of GI bleed admitted at the time to [facility] and not on anticoagulation because of it Subjective Date/time seen: 06/08/23 11:15 Interval history: 82-year-old with RSV, shortness of breath and atrial fibrillation Date of service 06/05/2023: She feels fine. She has no chest pain or shortness of breath. Date of service 06/06/2023: Continues to have a cough but denies shortness of breath, chest pain, palpitations. Date of service 06/07/2023: Heart rate remains somewhat elevated, but she continues to deny any shortness of breath, palpitations, chest pain. No complaints today. 06/08/2023. No active complaints. No chest pain shortness of breath Review of Systems Review of Systems: All systems reviewed & are unremarkable except as noted in HPI and below Constitutional: Constitutional: Denies body ache(s) and Denies excessive sweating Eyes: Eyes: Denies blurry vision ENT: Reports Normal hearing present Cardiovascular: Cardiovascular: Denies chest pain and Reports dyspnea Respiratory: Respiratory: Reports dyspnea Gastrointestinal: Gastrointestinal: Denies abdominal pain Genitourinary: Genitourinary: Denies hematuria Musculoskeletal: Musculoskeletal: Denies back pain Integumentary/Breasts: Skin/Breast: Denies dry skin Neurologic: Reports Normal hearing present and Denies Abnormal speech present Psychiatric: Psychiatric: Denies anxiety Endocrine: Endocrine: Denies excessive sweating Hematologic/Lymphatic: Hematologic/Lymphatic: Denies easy bleeding Allergic/Immunologic: Allergic/Immunologic: Denies GI upset with certain foods Exam Narrative: Awake alert oriented appears stated age Const: General: comfortable and no acute distress HENMT: Face/Nose/Sinus: Normal nares present Mouth: Yes moist mucous membranes Eyes: General: appearance normal, both eyes and all related structures Sclera: sclerae normal Neck: Neck: supple and no JVD Carotids: no bruits Chest: Other: No reproducible chest wall pain to palpation Resp: Effort & Inspection: normal respiratory effort Auscultation: diminished lung sounds Cardio: Rate: tachycardic Rhythm: abnormal rhythm irregularly irregular Heart sounds: no murmurs GI: Inspection: non-distended Skin: General skin exam: normal color Neuro: Cranial nerves: Yes Normal hearing present Speech: normal speech and No Abnormal speech present Extrem: General: normal to inspection Psych: Mental Status: mental status grossly normal Affect: normal affect Objective Data Vital Signs Vital Signs: Vital Signs - 24 hr 06/07/23 11:53 06/07/23 12:31 06/07/23 13:14 Temperature 36.7 C Pulse Rate 1
--- NOTE | 2023-06-08 14:13 | PM.IMPN ---
Progress Note: A&P Assessment and Plan (1) Shortness of breath: Code(s): R06.02 - Shortness of breath Status: Acute (2) Abnormal urinalysis: Code(s): R82.90 - Unspecified abnormal findings in urine Status: Acute (3) Allergic to IV contrast: Code(s): Z91.041 - Radiographic dye allergy status Status: Acute (4) D-dimer, elevated: Code(s): R79.89 - Other specified abnormal findings of blood chemistry Status: Acute (5) Atrial fibrillation with RVR: Code(s): I48.91 - Unspecified atrial fibrillation Status: Acute (6) Hypertension: Code(s): I10 - Essential (primary) hypertension Status: Acute (7) Duodenal ulcer disease: Code(s): K26.9 - Duodenal ulcer, unspecified as acute or chronic, without hemorrhage or perforation Status: Acute (8) Osteoarthritis, knee: Code(s): M17.10 - Unilateral primary osteoarthritis, unspecified knee Status: Acute Plan This is a pleasant 82-year-old white female with a history of AFib, previous tobacco abuse, hyperlipidemia, hypertension, 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 She was discharged on 05/14/2023 an episode of AFib with RVR.? Sent home with home health on Toprol XL 50 mg daily and Cardizem 120 mg extended release daily.? She had been taking her medications as prescribed.? She was not prescribed anticoagulation as she had a suspected upper GI bleed recently and via EGD was found to have many nonbleeding duodenal ulcers.? She was advised to stop NSAID use.? She returns as she complained of shortness of breath.? Transfer from [place] to [place] for pretreatment of contrast due to allergy.? Arrived on 06/04/2023 #Chest tightness/shortness of breath -this is improved.? Likely related to her atrial fibrillation with rapid ventricular rate and/or the RSV.? Troponin negative x2. -while at [place] the patient had a D-dimer test performed but age adjusted is within normal limits.? Still a V/Q scan was performed which demonstrates intermediate probability of PE.? Main reason for transfer was to receive pretreatment for contrast allergy. CTA chest was completed on 06/05 which demonstrated small to moderate bilateral pleural effusions with bibasilar atelectatic change, chronic L1 compression fracture but no evidence of PE. Normal saline, Benadryl, and prednisone has since been stopped #Acute hypoxic respiratory failure/RSV -she has been weaned down to 1 L nasal cannula. -on 06/07 given 1 time dose Lasix 20 mg IV. She has developed some crackles and receive normal saline for the contrast. BNP was elevated on admission at 5000. Surface echo 05/11/2023 demonstrated EF of 65-70%, there was no comment on her diastolic function. -bilateral [id number] pleural effusions. Monitor -supportive care for RSV #AFib with RVR -she had been restarted on her home meds diltiazem 120 mg p.o. q.a.m. and metoprolol 50 mg p.o. q.a.m.. Increased metoprolol 1and Diltiazem. Digoxin IV added. No evidence of concerns by EGD/[place] so will start Eliquis at 2.5mg Q12h (age>80 and wt<60kg). #CKD stage IIIA -continue to monitor.? Stable. Received IV contrast on 06/05/23 -Cr remaining stable #Suspected upper GI bleed with history of duodenal ulcer disease thought to be secondary to NSAID use -no longer takes NSAIDs. Continue Protonix. -EGD showing duodenal stenosis s/p dilation -Colonoscopy showing diverticulosis without perforation or abscess withotu bleeding. Okay to start Eliquis #Anemia -Hgb stable. Continue to monitor #Arthritis -she has signs and symptoms of ITB band syndrome.? She has had arthritis and cramping for some time and even takes baclofen for. -continue baclofen scheduled and Tylenol p.r.n..? Consulted PT OT.? I have placed lidocaine patch p.r.n. for additional pain regimen.? Apply heat pads as necessary as she reports that helps a
[2023-06-08] MEDS: SIMVASTATIN 10 MG TABLET PO (20:41)
[2023-06-08] MEDS: APIXABAN 2.5 MG TABLET PO (20:41)
[2023-06-09] VITALS (14 sets, daily range): BP systolic 115–139; BP diastolic 66–96; PULSE 72–113; RESP 20–22; TEMP 36.1–36.8; O2SAT 89–100
[2023-06-09 04:35] LABS: Basophils Percent Auto 0.6 % (0.2-1.2); Eosinophils Absolute Auto 0.1 K/mm3 (0-0.3); Eosinophils Percent Auto 2.4 % (0-4.4); Hematocrit 39.9 % (37.0-47.0); Immature Granulocyte Absolute 0.02 K/mm3 (0.00-0.031); Immature Granulocyte Percent A 0.4 % (0-0.5); Lymphocytes Absolute Auto 0.64 K/mm3 (0.9-3.2); Lymphocytes Percent Auto 11.7 % (18.3-44.2); Mean Corpuscular HGB Conc 30.1 g/dl (32-36); Mean Corpuscular Hemoglobin 28.2 pg (26-34); Mean Corpuscular Volume 93.9 fl (80-100); Mean Platelet Volume 10.1 fl (7.4-10.4); Monocytes Absolute Auto 0.7 K/mm3 (0.1-0.6); Monocytes Percent Auto 12.5 % (2.6-8.5); Neutrophils Percent Auto 72.4 % (45.5-73.1); Platelet Count Result 198 k/mm3 (150-375); Red Blood Count 4.25 M/mm3 (4.2-5.4); Red Cell Distribution Width 14.3 % (11.5-14.5); White Blood Count 5.5 K/mm3 (4.5-10.0)
[2023-06-09 04:41] LABS: Albumin Level 3.6 g/dL (3.5-5.1); Anion Gap 3 mmol/L (8-16); Blood Urea Nitrogen 15 mg/dL (7-17); Calcium 8.8 mg/dL (8.4-10.2); Carbon Dioxide 35 mmol/L (22-30); Chloride 99 mmol/L (98-107); Estimated CRCL calculation 49 ml/min; Estimated Glomerular Filt Rate > 60; Glucose 114 mg/dL (65-110); Magnesium 2.1 mg/dL (1.6-2.3); Potassium 3.7 mmol/L (3.4-5.0); Sodium 137 mmol/L (137-145)
[2023-06-09] MEDS: LIDOCAINE 5% PATCH 1 PATCH TRANSDERM (09:48)
[2023-06-09] MEDS: dilTIAZem HCL CD 240 MG CAP.24HR PO (09:49)
[2023-06-09] MEDS: METOPROLOL SUCCINATE EXT REL 50 MG TABCR 150 MG PO (09:49)
[2023-06-09] MEDS: APIXABAN 2.5 MG TABLET PO ×2 (09:49→21:30)
[2023-06-09] MEDS: GABAPENTIN 300 MG CAPSULE PO ×2 (09:50→18:37)
[2023-06-09] MEDS: DIGOXIN INJ 250 MCG/ML 2 ML AMP (*BKC) 125 MCG IV PUSH (09:50)
[2023-06-09] MEDS: PANTOPRAZOLE 40 MG TABLET PO (09:50)
[2023-06-09] MEDS: LORATADINE 10 MG TABLET PO (09:50)
[2023-06-09] MEDS: BACLOFEN 5 MG TABLET PO (09:50)
[2023-06-09] MEDS: NITROFURANTOIN MONOHYD MACROCR 100 MG CAP PO ×2 (09:50→21:30)
--- NOTE | 2023-06-09 11:01 | PM.PNCARD ---
Progress Note: A&P Assessment and Plan (1) A-fib: Code(s): I48.91 - Unspecified atrial fibrillation Status: Acute Assessment and Plan: Heart rate is still elevated. Continue metoprolol and diltiazem at current doses. Can adjust these medications as need be. Plan for EGD to evaluate whether or not anticuagulation can be started, but EGD cancelled yesterday due to tachycardia. Looks like plan is to attempt again tomorrow. Hold off on anticoagulation until GI evaluation is complete. Plan was for left atrial appendage occluder evaluation as an outpatient as well. she did respond well to digoxin. She will get another dose of digoxin 125 mcg IV today. DC digoxin after today's dose As this is not a long-term medication for her though. KCL 40 mEq p.o. x1. (2) Hypertension: Code(s): I10 - Essential (primary) hypertension Status: Acute Assessment and Plan: Continue home regimen (3) D-dimer, elevated: Code(s): R79.89 - Other specified abnormal findings of blood chemistry Status: Acute Assessment and Plan: CTA did not show any PE (4) Shortness of breath: Code(s): R06.02 - Shortness of breath Status: Acute Assessment and Plan: Predominantly related to RSV virus (5) Gastrointestinal hemorrhage: Code(s): K92.2 - Gastrointestinal hemorrhage, unspecified Status: Acute Assessment and Plan: History of GI bleed admitted at the time to [facility] and not on anticoagulation because of it Subjective Date/time seen: 06/09/23 11:01 Interval history: 82-year-old with RSV, shortness of breath and atrial fibrillation Date of service 06/05/2023: She feels fine. She has no chest pain or shortness of breath. Date of service 06/06/2023: Continues to have a cough but denies shortness of breath, chest pain, palpitations. Date of service 06/07/2023: Heart rate remains somewhat elevated, but she continues to deny any shortness of breath, palpitations, chest pain. No complaints today. Date of service 06/08/2023. No active complaints. No chest pain shortness of breath Date of service 06/09/2023: Heart rate is better controlled. Feels pretty good today. No chest pain or shortness breath. Review of Systems Review of Systems: All systems reviewed & are unremarkable except as noted in HPI and below Constitutional: Constitutional: Denies body ache(s) and Denies excessive sweating Eyes: Eyes: Denies blurry vision ENT: Reports Normal hearing present Cardiovascular: Cardiovascular: Denies chest pain and Reports dyspnea Respiratory: Respiratory: Reports dyspnea Gastrointestinal: Gastrointestinal: Denies abdominal pain Genitourinary: Genitourinary: Denies hematuria Musculoskeletal: Musculoskeletal: Denies back pain Integumentary/Breasts: Skin/Breast: Denies dry skin Neurologic: Reports Normal hearing present and Denies Abnormal speech present Psychiatric: Psychiatric: Denies anxiety Endocrine: Endocrine: Denies excessive sweating Hematologic/Lymphatic: Hematologic/Lymphatic: Denies easy bleeding Allergic/Immunologic: Allergic/Immunologic: Denies GI upset with certain foods Exam Narrative: Awake alert oriented appears stated age Const: General: comfortable and no acute distress HENMT: Face/Nose/Sinus: Normal nares present Mouth: Yes moist mucous membranes Eyes: General: appearance normal, both eyes and all related structures Sclera: sclerae normal Neck: Neck: supple and no JVD Carotids: no bruits Chest: Other: No reproducible chest wall pain to palpation Resp: Effort & Inspection: normal respiratory effort Auscultation: diminished lung sounds Cardio: Rate: tachycardic Rhythm: abnormal rhythm irregularly irregular Heart sounds: no murmurs GI: Inspection: non-distended Skin: General skin exam: normal color Neuro: Cranial nerves: Yes Normal hearing present Speech: normal speech and No
[2023-06-09] MEDS: POTASSIUM CHLORIDE 20 MEQ ER TABLET 40 MEQ PO (13:09)
--- NOTE | 2023-06-09 15:03 | PM.IMPN ---
Progress Note: A&P Assessment and Plan (1) Shortness of breath: Code(s): R06.02 - Shortness of breath Status: Acute (2) Abnormal urinalysis: Code(s): R82.90 - Unspecified abnormal findings in urine Status: Acute (3) Allergic to IV contrast: Code(s): Z91.041 - Radiographic dye allergy status Status: Acute (4) D-dimer, elevated: Code(s): R79.89 - Other specified abnormal findings of blood chemistry Status: Acute (5) Atrial fibrillation with RVR: Code(s): I48.91 - Unspecified atrial fibrillation Status: Acute (6) Hypertension: Code(s): I10 - Essential (primary) hypertension Status: Acute (7) Duodenal ulcer disease: Code(s): K26.9 - Duodenal ulcer, unspecified as acute or chronic, without hemorrhage or perforation Status: Acute (8) Osteoarthritis, knee: Code(s): M17.10 - Unilateral primary osteoarthritis, unspecified knee Status: Acute Plan #Chest tightness/shortness of breath -this is improved.? Likely related to her atrial fibrillation with rapid ventricular rate and/or the RSV.? Troponin negative x2. -while at [place] the patient had a D-dimer test performed but age adjusted is within normal limits.? Still a V/Q scan was performed which demonstrates intermediate probability of PE.? Main reason for transfer was to receive pretreatment for contrast allergy. CTA chest was completed on 06/05 which demonstrated small to moderate bilateral pleural effusions with bibasilar atelectatic change, chronic L1 compression fracture but no evidence of PE. Normal saline, Benadryl, and prednisone has since been stopped #Acute hypoxic respiratory failure/RSV -she has been weaned down to 1 L nasal cannula. -on 06/07 given 1 time dose Lasix 20 mg IV. She has developed some crackles and receive normal saline for the contrast. BNP was elevated on admission at 5000. Echo 05/11/23 demonstrated EF of 65-70%, there was no comment on her diastolic function. -bilateral [id number] pleural effusions. Monitor -supportive care for RSV #AFib with RVR -she had been restarted on her home meds diltiazem 120 mg p.o. q.a.m. and metoprolol 50 mg p.o. q.a.m.. Increased metoprolol and Diltiazem. Digoxin IV added. No evidence of concerns by EGD/[place] so started Eliquis at 2.5mg Q12h (age>80 and wt<60kg). #CKD stage IIIA -continue to monitor.? Stable. Received IV contrast on 06/05/23 -Cr remaining stable #Suspected upper GI bleed with history of duodenal ulcer disease thought to be secondary to NSAID use -no longer takes NSAIDs. Continue Protonix. -EGD showing duodenal stenosis s/p dilation -Colonoscopy showing diverticulosis without perforation or abscess without bleeding. Okay to start Eliquis #Anemia -Hgb stable. Continue to monitor #Arthritis -she has signs and symptoms of ITB band syndrome.? She has had arthritis and cramping for some time and even takes baclofen for. -continue baclofen scheduled and Tylenol p.r.n..? Consulted PT OT.? I have placed lidocaine patch p.r.n. for additional pain regimen.? Apply heat pads as necessary as she reports that helps a lot. She no longer complains of this pain. #History of hypertension -presented borderline low however she was given multiple pulse dosing for AFib with RVR at [facility]. -BP currently controlled. Continue to monitor. # UTI -urine culture growing Enterococcus sensitive to ampicillin vancomycin and nitrofurantoin. Will treat with p.o. Macrobid for 5 days starting 06/06/2023. Was previously on ceftriaxone #RSV bronchitis -stable. Continue symptomatic care GI prophylaxis:?Continue Protonix 40 mg p.o. q.day DVT prophylaxis:?SCDs, Eliquis Code Status:?Full code Subjective Date/time seen: 06/09/23 15:03 Interval history: 82-year-old with RSV, shortness of breath and atrial fibrillation here for chest pain. No CP. Slept well Having loose stools now. Cough productive of
[2023-06-09] MEDS: SIMVASTATIN 10 MG TABLET PO (21:30)
[2023-06-10] VITALS (17 sets, daily range): BP systolic 94–124; BP diastolic 57–84; PULSE 70–102; RESP 14–20; TEMP 36.2–36.9; O2SAT 93–97
[2023-06-10] MEDS: GABAPENTIN 300 MG CAPSULE PO ×2 (08:48→16:43)
[2023-06-10] MEDS: PANTOPRAZOLE 40 MG TABLET PO (08:48)
[2023-06-10] MEDS: dilTIAZem HCL CD 240 MG CAP.24HR PO (08:48)
[2023-06-10] MEDS: LORATADINE 10 MG TABLET PO (08:49)
[2023-06-10] MEDS: METOPROLOL SUCCINATE EXT REL 50 MG TABCR 150 MG PO (08:49)
[2023-06-10] MEDS: APIXABAN 2.5 MG TABLET PO ×2 (08:49→20:48)
[2023-06-10] MEDS: NITROFURANTOIN MONOHYD MACROCR 100 MG CAP PO ×2 (08:49→20:48)
[2023-06-10] MEDS: BACLOFEN 5 MG TABLET PO (08:49)
--- NOTE | 2023-06-10 10:13 | PM.PNCARD ---
Progress Note: A&P Assessment and Plan (1) A-fib: Code(s): I48.91 - Unspecified atrial fibrillation Status: Acute Assessment and Plan: Rate well controlled at this point. Continue metoprolol and diltiazem at current doses. Can adjust these medications as need be. Anticoagulation has been resumed. (2) Hypertension: Code(s): I10 - Essential (primary) hypertension Status: Acute Assessment and Plan: Continue home regimen (3) D-dimer, elevated: Code(s): R79.89 - Other specified abnormal findings of blood chemistry Status: Acute Assessment and Plan: CTA did not show any PE (4) Shortness of breath: Code(s): R06.02 - Shortness of breath Status: Acute Assessment and Plan: Predominantly related to RSV virus. Improving. (5) Gastrointestinal hemorrhage: Code(s): K92.2 - Gastrointestinal hemorrhage, unspecified Status: Acute Assessment and Plan: OK to resume a/c per GI Subjective Date/time seen: 06/10/23 10:13 Interval history: 82-year-old with RSV, shortness of breath and atrial fibrillation Date of service 06/05/2023: She feels fine. She has no chest pain or shortness of breath. Date of service 06/06/2023: Continues to have a cough but denies shortness of breath, chest pain, palpitations. Date of service 06/07/2023: Heart rate remains somewhat elevated, but she continues to deny any shortness of breath, palpitations, chest pain. No complaints today. Date of service 06/08/2023. No active complaints. No chest pain shortness of breath Date of service 06/09/2023: Heart rate is better controlled. Feels pretty good today. No chest pain or shortness breath. Date of service 06/10/2023: Heart rate remains controlled. No shortness of breath, palpitations, chest pain. Review of Systems Review of Systems: All systems reviewed & are unremarkable except as noted in HPI and below Constitutional: Constitutional: Denies body ache(s) and Denies excessive sweating Eyes: Eyes: Denies blurry vision ENT: Reports Normal hearing present Cardiovascular: Cardiovascular: Denies chest pain and Reports dyspnea Respiratory: Respiratory: Reports dyspnea Gastrointestinal: Gastrointestinal: Denies abdominal pain Genitourinary: Genitourinary: Denies hematuria Musculoskeletal: Musculoskeletal: Denies back pain Integumentary/Breasts: Skin/Breast: Denies dry skin Neurologic: Reports Normal hearing present and Denies Abnormal speech present Psychiatric: Psychiatric: Denies anxiety Endocrine: Endocrine: Denies excessive sweating Hematologic/Lymphatic: Hematologic/Lymphatic: Denies easy bleeding Allergic/Immunologic: Allergic/Immunologic: Denies GI upset with certain foods Exam Narrative: Awake alert oriented appears stated age Const: General: comfortable and no acute distress HENMT: Face/Nose/Sinus: Normal nares present Mouth: Yes moist mucous membranes Eyes: General: appearance normal, both eyes and all related structures Sclera: sclerae normal Neck: Neck: supple and no JVD Carotids: no bruits Chest: Other: No reproducible chest wall pain to palpation Resp: Effort & Inspection: normal respiratory effort Auscultation: diminished lung sounds Cardio: Rate: regular rate Rhythm: abnormal rhythm irregularly irregular Heart sounds: no murmurs GI: Inspection: non-distended Skin: General skin exam: normal color Neuro: Cranial nerves: Yes Normal hearing present Speech: normal speech and No Abnormal speech present Extrem: General: normal to inspection Psych: Mental Status: mental status grossly normal Affect: normal affect Objective Data Vital Signs Vital Signs: Vital Signs - 24 hr 06/09/23 12:00 06/09/23 12:00 06/09/23 14:00 Temperature 36.8 C Pulse Rate 78 84 101 H Respiratory Rate 22 H Blood Pressure 139/96 H Pulse Oximetry 92 Oxygen Delivery Oxygen Flow Rate
--- NOTE | 2023-06-10 11:53 | PCNWS ---
Weekly nutritional screen. Patient is tolerating current diet with adequate intake. No weight loss reported. No nutritional needs at this time.
--- NOTE | 2023-06-10 12:52 | PC.NURSE ---
At bedside discussing plan of care with patient, patient states they said I have to go home but I feel too weak to be home by myself. RN reviewed plan of care with Dr. Zavala, patient to go to rehab upon discharge. Sravanthi, outdoor emergency care technician, updated on new plan of care.
--- NOTE | 2023-06-10 14:49 | PM.IMPN ---
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 Likely related to her atrial fibrillation with rapid ventricular rate and/or the RSV.? Troponin negative x2. -while at [place] the patient had a D-dimer test performed but age adjusted is within normal limits.? Still a V/Q scan was performed which demonstrates intermediate probability of PE.? Main reason for transfer was to receive pretreatment for contrast allergy. CTA chest was completed on 06/05 which demonstrated small to moderate bilateral pleural effusions with bibasilar atelectatic change, chronic L1 compression fracture but no evidence of PE. Normal saline, Benadryl, and prednisone has since been stopped #Acute hypoxic respiratory failure/RSV -she has been weaned down to 1 L nasal cannula. -on 06/07 given 1 time dose Lasix 20 mg IV. She has developed some crackles and receive normal saline for the contrast. BNP was elevated on admission at 5000. Echo 05/11/23 demonstrated EF of 65-70%, there was no comment on her diastolic function. -bilateral [id number] pleural effusions. Monitor -supportive care for RSV #AFib with RVR -she had been restarted on her home meds diltiazem 120 mg p.o. q.a.m. and metoprolol 50 mg p.o. q.a.m.. Increased metoprolol and Diltiazem. Digoxin IV added. No evidence of concerns by EGD/[place] so started Eliquis at 2.5mg Q12h (age>80 and wt<60kg). HR better. Off Digoxin. #CKD stage IIIA -continue to monitor.? Stable. Received IV contrast on 06/05/23 -Cr remaining stable #Suspected upper GI bleed with history of duodenal ulcer disease thought to be secondary to NSAID use -no longer takes NSAIDs. Continue Protonix. -EGD showing duodenal stenosis s/p dilation -Colonoscopy showing diverticulosis without perforation or abscess without bleeding. Okay to start Eliquis #Anemia -Hgb stable. Continue to monitor #Arthritis -she has signs and symptoms of ITB band syndrome.? She has had arthritis and cramping for some time and even takes baclofen for. -continue baclofen scheduled and Tylenol p.r.n..? Consulted PT OT.?Placed lidocaine patch p.r.n. for additional pain regimen.? Apply heat pads as necessary as she reports that helps a lot. She no longer complains of this pain. #History of hypertension -presented borderline low however she was given multiple pulse dosing for AFib with RVR at [facility]. -BP currently controlled. Continue to monitor. # UTI -urine culture growing Enterococcus sensitive to ampicillin vancomycin and nitrofurantoin. Will treat with p.o. Macrobid for 5 days starting 06/06/2023. Was previously on ceftriaxone #RSV bronchitis -stable. Continue symptomatic care GI prophylaxis:?Continue Protonix 40 mg p.o. q.day DVT prophylaxis:?SCDs, Eliquis Code Status:?Full code Subjective Date/time seen: 06/10/23 14:49 Interval history: 82-year-old with RSV, shortness of breath and atrial fibrillation here for chest pain. Slept well. No CP or SOB. No n/v. Walking with walker in the room. States she is ready for dis
[2023-06-10 14:56] LABS: Glucose Point of Care 133 mg/dl (65-105)
[2023-06-10 15:43] LABS: Alveolar/Arterial O2 Gradient 44.1 mmHg; Base Excess ABG 3.7 mEq/l (+/-2.0); Fractional Inspired Oxygen 24 %; HCO3 ABG 30.3 mEq/l (22.0-26.0); Oxygen Content ABG 15.9 %vol (16.0-22.0); Oxygen Saturation ABG 90.4 % (95.0-100.0); Oxyhemoglobin 90.6 % THb (90.0-100.0); PCO2 ABG 54.9 mmHg (35.0-45.0); PO2 ABG 61.7 mmHg (80.0-100.0); PO2 FiO2 Ratio Arterial Blood 2.57 %; Total Hemoglobin 12.5 g/dL (12.0-18.0)
[2023-06-10 15:45] LABS: Basophils Percent Auto 0.5 % (0.2-1.2); Eosinophils Absolute Auto 0.3 K/mm3 (0-0.3); Eosinophils Percent Auto 4.1 % (0-4.4); Hematocrit 38.7 % (37.0-47.0); Hemoglobin 11.3 g/dL (12.0-15.0); Immature Granulocyte Absolute 0.03 K/mm3 (0.00-0.031); Immature Granulocyte Percent A 0.4 % (0-0.5); Lymphocytes Absolute Auto 1.13 K/mm3 (0.9-3.2); Lymphocytes Percent Auto 14.5 % (18.3-44.2); Mean Corpuscular HGB Conc 29.2 g/dl (32-36); Mean Corpuscular Hemoglobin 28.4 pg (26-34); Mean Corpuscular Volume 97.2 fl (80-100); Mean Platelet Volume 10.2 fl (7.4-10.4); Monocytes Percent Auto 12.5 % (2.6-8.5); Neutrophils Absolute Auto 5.3 K/mm3 (1.3-6.7); Platelet Count Result 202 k/mm3 (150-375); Red Blood Count 3.98 M/mm3 (4.2-5.4); Red Cell Distribution Width 14.1 % (11.5-14.5); White Blood Count 7.8 K/mm3 (4.5-10.0)
[2023-06-10 15:46] LABS: Device NASAL CANNULA; Modified Allen's Test Pass; Site Drawn LEFT RADIAL
--- NOTE | 2023-06-10 15:50 | PC.NURSE ---
RN to bedside. Patient confused unable to verbalize name of current President. Speech slightly slurred compared to previous assessment, minimal left lower extremity. Patient does complain of pain to lower back when lifting left leg. Vitals and blood glucose recorded. Dr. Zavala notified, Stat CT Head and CTA Chest ordered and completed.
[2023-06-10 15:54] LABS: Alanine Aminotransferase 31 U/L (6-35); Albumin Level 3.6 g/dL (3.5-5.1); Alkaline Phosphatase 66 U/L (38-126); Anion Gap 6 mmol/L (8-16); Aspartate Amino Transferase 37 U/L (14-36); Bilirubin,Total 0.4 mg/dL (0.2-1.3); Blood Urea Nitrogen 19 mg/dL (7-17); Calcium 8.6 mg/dL (8.4-10.2); Carbon Dioxide 33 mmol/L (22-30); Chloride 97 mmol/L (98-107); Estimated CRCL calculation 43 ml/min; Estimated Glomerular Filt Rate > 60; Glucose 130 mg/dL (65-110); Magnesium 1.8 mg/dL (1.6-2.3); Phosphorus 3.5 mg/dL (2.5-4.5); Potassium 4.2 mmol/L (3.4-5.0); Sodium 136 mmol/L (137-145)
[2023-06-10] MEDS: ACETAMINOPHEN 325 MG TABLET 650 MG PO (18:07)
[2023-06-10] MEDS: SIMVASTATIN 10 MG TABLET PO (20:48)
[2023-06-11] VITALS (19 sets, daily range): BP systolic 104–126; BP diastolic 49–71; PULSE 65–99; RESP 18–24; TEMP 35.7–36.5; O2SAT 93–97
[2023-06-11] MEDS: dilTIAZem HCL CD 240 MG CAP.24HR PO (09:51)
[2023-06-11] MEDS: METOPROLOL SUCCINATE EXT REL 50 MG TABCR 150 MG PO (09:51)
[2023-06-11] MEDS: BACLOFEN 5 MG TABLET PO (09:51)
[2023-06-11] MEDS: GABAPENTIN 300 MG CAPSULE PO ×2 (09:52→17:16)
[2023-06-11] MEDS: APIXABAN 2.5 MG TABLET PO ×2 (09:52→21:08)
[2023-06-11] MEDS: LORATADINE 10 MG TABLET PO (09:52)
[2023-06-11] MEDS: PANTOPRAZOLE 40 MG TABLET PO (09:52)
--- NOTE | 2023-06-11 10:02 | PM.PNCARD ---
Progress Note: A&P Assessment and Plan (1) Atrial fibrillation with RVR: Code(s): I48.91 - Unspecified atrial fibrillation Status: Acute Plan 82-year-old lady with persistent, chronic atrial fibrillation. Rate controlled with combination of metoprolol and diltiazem and anticoagulation in place with apixaban. No additional cardiovascular recommendations at this time William Lopez MD [facility] Subjective Date/time seen: Date of service: 06/11/23 10:02 Interval history: 82-year-old with RSV, shortness of breath and atrial fibrillation Date of service 06/05/2023: She feels fine. She has no chest pain or shortness of breath. Date of service 06/06/2023: Continues to have a cough but denies shortness of breath, chest pain, palpitations. Date of service 06/07/2023: Heart rate remains somewhat elevated, but she continues to deny any shortness of breath, palpitations, chest pain. No complaints today. Date of service 06/08/2023. No active complaints. No chest pain shortness of breath Date of service 06/09/2023: Heart rate is better controlled. Feels pretty good today. No chest pain or shortness breath. Date of service 06/10/2023: Heart rate remains controlled. No shortness of breath, palpitations, chest pain. Date of service 06/11/2023: Continues to have well rate-controlled atrial fib Exam Narrative: Awake alert oriented appears stated age Const: General: comfortable and no acute distress HENMT: Face/Nose/Sinus: Normal nares present Mouth: Yes moist mucous membranes Eyes: General: appearance normal, both eyes and all related structures Sclera: sclerae normal Neck: Neck: supple and no JVD Carotids: no bruits Chest: Other: No reproducible chest wall pain to palpation Resp: Effort & Inspection: normal respiratory effort Auscultation: wheezes Other: Central wheezes noted this morning Cardio: Rate: regular rate and tachycardic Rhythm: abnormal rhythm irregularly irregular Heart sounds: no murmurs GI: Inspection: non-distended Skin: General skin exam: normal color Neuro: Cranial nerves: Yes Normal hearing present Speech: normal speech and No Abnormal speech present Extrem: General: normal to inspection Psych: Mental Status: mental status grossly normal Affect: normal affect Objective Data Vital Signs Vital Signs: Vital Signs - 24 hr 06/10/23 12:00 06/10/23 12:00 06/10/23 12:00 Temperature 36.9 C Pulse Rate 95 93 Respiratory Rate 14 Blood Pressure 124/76 Pulse Oximetry 94 94 Oxygen Delivery Nasal Cannula Oxygen Flow Rate 1 06/10/23 14:00 06/10/23 14:58 06/10/23 15:45 Temperature 36.4 C L 36.7 C Pulse Rate 94 77 Respiratory Rate 16 Blood Pressure 117/57 L 118/72 Pulse Oximetry 95 Oxygen Delivery Oxygen Flow Rate 06/10/23 16:00 06/10/23 16:00 06/10/23 18:00 Temperature Pulse Rate 78 72 Respiratory Rate Blood Pressure Pulse Oximetry 95 Oxygen Delivery Nasal Cannula Oxygen Flow Rate 1 06/10/23 20:00 06/10/23 20:00 06/10/23 20:00 Temperature 36.4 C L Pulse Rate 88 82 Respiratory Rate 20 Blood Pressure 116/84 Pulse Oximetry 95 95 Oxygen Delivery Nasal Cannula Oxygen Flow Rate 1 06/10/23 22:00 06/11/23 00:00 06/11/23 00:00 Temperature 35.7 C L Pulse Rate 87 85 86 Respiratory Rate 20 Blood Pressure 119/71 Pulse Oximetry 94 Oxygen Delivery Oxygen Flow Rate 06/11/23 00:00 06/11/23 02:00 06/11/23 03:56 Temperature 36.1 C L Pulse Rate 65 79 Respiratory Rate 20 Blood Pressure 104/49 L Pulse Oximetry 94 94 Oxygen Delivery Nasal Cannula Oxygen Flow Rate 1 06/11/23 04:00 06/11/23 04:00 06/11/23 08:00 Temperature 36.2 C L Pulse Rate 84 94 Respiratory Rate 22 H Blood Pressure 109/61 Pulse Oximetry 94 93 Oxygen Delivery Nasal Cannula Oxygen Flow Rate 1 06/11/23 09:51 Temperature Pulse Rate 93 Respiratory Rate
--- NOTE | 2023-06-11 14:47 | PM.IMPN ---
Progress Note: A&P Assessment and Plan (1) Acute respiratory failure: Code(s): J96.00 - Acute respiratory failure, unspecified whether with hypoxia or hypercapnia Status: Acute Assessment and Plan: Acute hypoxic respiratory failure/RSV -she has been weaned down to 1 L nasal cannula. -on 06/07 given 1 time dose Lasix 20 mg IV. She has developed some crackles and receive normal saline for the contrast. BNP was elevated on admission at 5000. Echo 05/11/23 demonstrated EF of 65-70%, there was no comment on her diastolic function. -bilateral xyzbo-[id number]-[id number] pleural effusions. Monitor -supportive care for RSV More wheezing today. CXR showing minimal atelectasis LLL. Start bronchodilators and Solu-Medrol. (2) Shortness of breath: Code(s): R06.02 - Shortness of breath Status: Acute Assessment and Plan: Likely related to her atrial fibrillation with rapid ventricular rate and/or the RSV.? Troponin negative x2. -while at [place] the patient had a D-dimer test performed but age adjusted is within normal limits.? Still a V/Q scan was performed which demonstrates intermediate probability of PE.? Main reason for transfer was to receive pretreatment for contrast allergy. CTA chest was completed on 06/05 which demonstrated small to moderate bilateral pleural effusions with bibasilar atelectatic change, chronic L1 compression fracture but no evidence of PE. Normal saline, Benadryl, and prednisone has since been stopped (3) Atrial fibrillation with RVR: Code(s): I48.91 - Unspecified atrial fibrillation Status: Acute Assessment and Plan: She had been restarted on her home meds diltiazem 120 mg p.o. q.a.m. and metoprolol 50 mg p.o. q.a.m.. Increased metoprolol and Diltiazem. Digoxin IV added. No evidence of concerns by EGD/[place] so started Eliquis at 2.5mg Q12h (age>80 and wt<60kg). Off Digoxin. HR remaining well controlled. 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 -EGD showing duodenal stenosis s/p dilation -Colonoscopy showing diverticulosis without perforation or abscess without bleeding. Okay to start Eliquis which was done Continue Protonix. (6) Anemia: Code(s): D64.9 - Anemia, unspecified Status: Acute Assessment and Plan: Hgb stable. Continue to monitor (7) Hypertension: Code(s): I10 - Essential (primary) hypertension Status: Acute Assessment and Plan: Patient's blood pressure was reviewed on 06/11 Blood pressure remains well controlled. Will continue current medications. (8) UTI (urinary tract infection): Code(s): N39.0 - Urinary tract infection, site not specified Status: Inactive Assessment and Plan: Urine culture growing Enterococcus sensitive to ampicillin vancomycin and nitrofurantoin. Treated with Macrobid and completed a course (9) RSV (acute bronchiolitis due to respiratory syncytial virus): Code(s): J21.0 - Acute bronchiolitis due to respiratory syncytial virus Status: Acute Assessment and Plan: RSV bronchitis Stable. Continue symptomatic care (10) Vertebral artery stenosis: Code(s): I65.09 - Occlusion and stenosis of unspecified vertebral artery Status: Acute Assessment and Plan: Patient had acute onset altered mental status on 06/10/2023. Code stroke was called. CT the head showed no acute intracranial process. CTA of the he
[2023-06-11] MEDS: methylPREDNISolone SOD SUCC 125 MG VIAL 60 MG IV PUSH (17:16)
[2023-06-11] MEDS: LEVALBUTEROL NEB 1.25 MG/3 ML INHALATION (20:09)
[2023-06-11] MEDS: IPRATROPIUM BR 0.02% INH SOLN 0.5 MG/2.5 ML VIAL INHALATION (20:10)
[2023-06-12] VITALS (20 sets, daily range): BP systolic 105–153; BP diastolic 63–91; PULSE 81–118; RESP 16–24; TEMP 36–36.9; O2SAT 91–97
[2023-06-12] MEDS: methylPREDNISolone SOD SUCC 125 MG VIAL 60 MG IV PUSH ×4 (00:18→17:22)
[2023-06-12] MEDS: IPRATROPIUM BR 0.02% INH SOLN 0.5 MG/2.5 ML VIAL INHALATION ×3 (02:35→14:41)
[2023-06-12] MEDS: LEVALBUTEROL NEB 1.25 MG/3 ML INHALATION ×3 (02:35→14:41)
[2023-06-12 05:19] LABS: Alanine Aminotransferase 28 U/L (6-35); Albumin Level 4.3 g/dL (3.5-5.1); Alkaline Phosphatase 80 U/L (38-126); Anion Gap 5 mmol/L (8-16); Aspartate Amino Transferase 29 U/L (14-36); Bilirubin,Total 0.5 mg/dL (0.2-1.3); Blood Urea Nitrogen 18 mg/dL (7-17); Calcium 9.1 mg/dL (8.4-10.2); Carbon Dioxide 35 mmol/L (22-30); Chloride 98 mmol/L (98-107); Cholesterol 138 mg/dL (0-200); Estimated CRCL calculation 43 ml/min; Estimated Glomerular Filt Rate > 60; Glucose 240 mg/dL (65-110); HDL Direct 54 mg/dL; Magnesium 1.8 mg/dL (1.6-2.3); Potassium 4.4 mmol/L (3.4-5.0); Sodium 138 mmol/L (137-145); Triglycerides 68 mg/dL (<150)
[2023-06-12 05:27] LABS: Basophils Percent Auto 0.2 % (0.2-1.2); Hematocrit 42.5 % (37.0-47.0); Hemoglobin 12.9 g/dL (12.0-15.0); Immature Granulocyte Absolute 0.04 K/mm3 (0.00-0.031); Immature Granulocyte Percent A 0.9 % (0-0.5); Lymphocytes Absolute Auto 0.53 K/mm3 (0.9-3.2); Mean Corpuscular HGB Conc 30.4 g/dl (32-36); Mean Corpuscular Hemoglobin 28.5 pg (26-34); Mean Platelet Volume 11.2 fl (7.4-10.4); Monocytes Absolute Auto 0.1 K/mm3 (0.1-0.6); Monocytes Percent Auto 1.1 % (2.6-8.5); Neutrophils Absolute Auto 3.8 K/mm3 (1.3-6.7); Neutrophils Percent Auto 85.8 % (45.5-73.1); Platelet Count Result 242 k/mm3 (150-375); Red Blood Count 4.52 M/mm3 (4.2-5.4); Red Cell Distribution Width 14.3 % (11.5-14.5); White Blood Count 4.4 K/mm3 (4.5-10.0)
[2023-06-12 05:30] LABS: LDL Cholesterol Direct 67 mg/dL
[2023-06-12] MEDS: BACLOFEN 5 MG TABLET PO (10:27)
[2023-06-12] MEDS: METOPROLOL SUCCINATE EXT REL 50 MG TABCR 150 MG PO (10:27)
[2023-06-12] MEDS: ATORVASTATIN 40 MG TABLET PO (10:28)
[2023-06-12] MEDS: APIXABAN 2.5 MG TABLET PO ×2 (10:28→17:24)
[2023-06-12] MEDS: PANTOPRAZOLE 40 MG TABLET PO (10:28)
[2023-06-12] MEDS: LORATADINE 10 MG TABLET PO (10:28)
[2023-06-12] MEDS: GABAPENTIN 300 MG CAPSULE PO ×2 (10:28→17:24)
[2023-06-12] MEDS: dilTIAZem HCL CD 240 MG CAP.24HR PO (10:36)
--- NOTE | 2023-06-12 14:02 | PM.DS ---
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 - Duodenal ulcer, unspecified as acute or chronic, without hemorrhage or perforation Status: Acute (6) Anemia: Code(s): D64.9 - Anemia, unspecified Status: Acute (7) Hypertension: Code(s): I10 - Essential (primary) hypertension Status: Acute (8) UTI (urinary tract infection): Code(s): N39.0 - Urinary tract infection, site not specified Status: Inactive (9) RSV (acute bronchiolitis due to respiratory syncytial virus): Code(s): J21.0 - Acute bronchiolitis due to respiratory syncytial virus Status: Acute (10) Vertebral artery stenosis: Code(s): I65.09 - Occlusion and stenosis of unspecified vertebral artery Status: Acute (11) Osteoarthritis, knee: Code(s): M17.10 - Unilateral primary osteoarthritis, unspecified knee Status: Acute DS: Summary Hospital Course Reason for hospitalization: 82-year-old with RSV, shortness of breath and atrial fibrillation here for chest pain. Please see H&P for details. Hospital Course: Patient with SOB and CP and found to have acute hypoxic respiratory failure. [place] related to the AFib and RSV. CXR was clear initially. D-dimer was only mildly elevated. VQ showing intermediate probability but CTA chest showing no PE but showed small to moderate bilateral pleural effusions. BNP was 5000.?Echo 05/11/23 showing EF 65-70% but no comment on her diastolic function. Patient with atrial fibrillation with RVR. She had been restarted on her home meds. Heart rate still poroly controlled so metoprolol and Diltiazem increased. Digoxin IV added. Patient with suspected upper GI bleed with history of duodenal ulcer disease thought to be secondary to NSAID use. She no longer takes NSAIDs.?GI consulted and EGD showing duodenal stenosis s/p dilation. Colonoscopy showing diverticulosis without perforation or abscess without bleeding. GI was okay to start anticoagulation so started Eliquis at 2.5mg Q12h (age>80 and wt<60kg). Digoxin stopped and HR remained well controlled.?She has CKD and we monitored her renal function closely. She had UTI with Urine culture growing Enterococcus. Treated with Macrobid and completed a course. Patient had acute onset altered mental status on 06/10/2023.? Code stroke was called.?CT the head showed no acute intracranial process.?CTA of the head and neck showed no evidence of atherosclerotic plaque with 0% stenosis of the right carotid bulb, small amount of atherosclerotic plaque with 0% stenosis in left carotid bulb and no evidence of atherosclerotic plaque, thrombus or dissection in the intracranial cerebral arteries. There was a potentially hemodynamically significant stenosis at the origin of left vertebral artery but this was limited by streak artifact. There is a 50% stenosis in small dissecting flap at the proximal left subclavian artery. These findings discussed with cardiology who recommended vascular surgery consult as outpatient. She is on Eliquis. Statin changed to high-intensity Lipitor. We did supportive care for RSV. he did develop more wheezing. CXR showing minimal atelectasis LLL o/w clear. She was started on bronchodilators and Solu-Medrol. She had clinical improvement. She was weaned down to 1 L nasal cannula. She did well and was able to be discharged to skilled facility o
--- NOTE | 2023-06-12 14:58 | PC.NURSE ---
1400 while rounding on the pt. The pt is reporting bubbles coming from her sheet. The pt is A&oX4 but reports seeing bubbles coming out of her. Dr. Zavala given report on events.
[2023-06-12 16:20] LABS: SARS-CoV-2 RNA PCR Negative (Negative)
--- NOTE | 2023-06-12 16:47 | PC.NURSE ---
Attempting to call report to [facility] without success at [phone] without answer. inside sales recruiter Makita given report on events.
--- NOTE | 2023-06-12 18:06 | PC.NURSE ---
Report called to [facility] et given to Danielle ALEX. All belongings sent with the pt except discharge paperwork et hard copy of Imaging CD. Maintenance Mechanic 2Nd Shift called et given report. Per Michael will return call up to the facility in the morning to advise when he can come back et get the record. A copy was faxed over to the facility prior to the pt leaving the facility.
== END 2023-06-12 18:50 | DRG 308 ==
PROVIDERS: Internal Medicine Gastroenterology; Admitting Provider General Practice; PCP Nurse Practitioner Family; Visit Provider Internal Medicine
PROC: 0DJ08ZZ Inspection of Upper Intestinal Tract, Via Natural or Artificial Opening Endoscopic (ICD-10-PCS; CPT 43235; principal; 2023-06-06 15:00)
DX: I48.91 Unspecified atrial fibrillation (principal); J96.01 Acute respiratory failure with hypoxia; N39.0 Urinary tract infection, site not specified; J21.0 Acute bronchiolitis due to respiratory syncytial virus; K31.5 Obstruction of duodenum; N18.31 Chronic kidney disease, stage 3a; I12.9 Hypertensive chronic kidney disease with stage 1 through stage 4 chronic kidney disease, or unspecified chronic kidney disease; I65.02 Occlusion and stenosis of left vertebral artery; I65.29 Occlusion and stenosis of unspecified carotid artery; K26.9 Duodenal ulcer, unspecified as acute or chronic, without hemorrhage or perforation; K57.30 Diverticulosis of large intestine without perforation or abscess without bleeding; D64.9 Anemia, unspecified; B95.2 Enterococcus as the cause of diseases classified elsewhere; M17.10 Unilateral primary osteoarthritis, unspecified knee; R79.89 Other specified abnormal findings of blood chemistry; Z87.891 Personal history of nicotine dependence; Z91.041 Radiographic dye allergy status; Z11.52 Encounter for screening for COVID-19
CPT/HCPCS: 36415; 36600; 70450; 70496; 70498; 71045; 71046; 71275; 80048; 80053; 80061; 80069; 82805; 82948; 83735; 84100; 85025; 85027; 87070; 87205; 87635; 94640; 97110; 97116; 97161; 97165; 97530; 97535; A9270; C1726; J0696; J1160; J1200; J1940; J2371; J2704; J2930; J7030; J7120; J7512; Q9967

== ENCOUNTER 2023-07-05 14:08 | Outpatient (CLI) | payer MEDICARE, SELFPAY ==
--- NOTE | ~2023-07-05 | US_ITS ---
EXAMINATION: US venous doppler [facility] DATE: 07/05/2023 14:45 INDICATION: Left lower limb swelling TECHNIQUE: Grayscale ultrasound images without and with compression and Doppler ultrasound images of the left lower extremity veins were obtained. COMPARISON: None. FINDINGS: The visualized portions of left common femoral vein, profunda (deep) femoral vein, femoral vein, popl iteal vein, peroneal veins, posterior tibial veins, gastrocnemius vein and greater saphenous vein out flow are patent. IMPRESSION: 1. No deep venous thrombosis in the left lower limb. Reviewed, dictated and finalized at location L.
== END 2023-07-05 14:09 | disposition home or self-care (01) ==
LOC: CHSIMG 14:11
PROVIDERS: PCP Family Medicine; Visit Provider Family Medicine
DX: M79.89 Other specified soft tissue disorders (principal); M79.662 Pain in left lower leg
CPT/HCPCS: 93971

== ENCOUNTER 2023-07-07 15:56 | Inpatient (IN) | payer MEDICARE, SELFPAY ==
--- NOTE | ~2023-07-07 | XR_ITS ---
EXAMINATION: XR chest 2V DATE: 07/11/2023 09:03 INDICATION: Hypoxia. RSV. TECHNIQUE: frontal and lateral views of the chest were obtained. COMPARISON: Chest radiograph dated 07/07/2023 and 04/07/[address] dated 06/05/2023 and 11/30/2022. FINDINGS: Chronic biapical pleural-parenchymal scarring, mild on the left and moderate on the right. There are opacities at the bilateral lower lung zones consistent with small bilateral pleural effusions and ass ociated basilar atelectasis and/or pneumonia. No pulmonary edema or pneumothorax. Heart size is cleo l. Atherosclerotic aorta. Chronic L1 burst fracture unchanged since CT dated 11/30/2022. IMPRESSION: 1. Small bilateral pleural effusions with associated atelectasis and/or pneumonia. 2. Chronic biapical pleural-parenchymal scarring, right greater than left. Reviewed, dictated and finalized at location A. IMPRESSION: 1. Small bilateral pleural effusions with associated atelectasis and/or pneumon ia. 2. Chronic biapical pleural-parenchymal scarring, right greater than left.
--- NOTE | ~2023-07-07 | XR_ITS ---
XR chest 1V portable 07/07/2023 17:56 Indication: Peripheral edema. Procedure: AP portable chest Comparison: Comparison to multiple prior studies sequentially, with oldest reviewed study dated 05/11. Findings: Chronic right apical pleural thickening. Cardiomegaly. Mild interstitial edema has progress ed since prior examination. Small left pleural effusion. Impression: 1: Interval progression of interstitial edema. Reviewed, dictated and finalized at location A. Impression: 1: Interval progression of interstitial edema.
--- NOTE | ~2023-07-07 | XR_ITS ---
EXAMINATION: XR chest 1V portable DATE: 07/14/2023 08:23 INDICATION: Shortness of breath. TECHNIQUE: frontal view of the chest was obtained. COMPARISON: Chest radiograph dated 07/11/2023 FINDINGS: Biapical pleural-parenchymal scarring. Lung volumes are decreased with increasing opacities at the bi lateral lower lung zones which includes small bilateral pleural effusions. No pulmonary edema or pneu mothorax. Heart size is normal. IMPRESSION: 1. Increasing small bilateral pleural effusions with associated bibasilar atelectasis and/or pneumoni a. Reviewed, dictated and finalized at location A. IMPRESSION: 1. Increasing small bilateral pleural effusions with associated bibasilar atele ctasis and/or pneumonia.
[2023-07-07 15:59] VITALS: BP 109/74; PULSE 84; RESP 20; TEMP 35.7; O2SAT 96
--- NOTE | 2023-07-07 16:56 | ECG_ITS ---
Measurements Intervals [place] Rate: 112 P: UT: 0 QRS: 78 QRSD: 77 T: 64 QT: 307 QTc: 420 Interpretive Statements ATRIAL FIBRILLATION WITH RAPID VENTRICULAR RESPONSE NONSPECIFIC ST-T WAVE ABNORMALITY- INF/LAT LEADS BASELINE ARTIFACT- I, II, III, AVR, AVL, AVF, V1-V6 ABNORMAL ECG COMPARED TO ECG 06/03/2023 14:52:38 HEART RATE HAS INCREASED Electronically Signed On 07-07-2023 19:52:59 CDT by De Snowden D.O.
[2023-07-07 17:21] LABS: Basophils Absolute Auto 0.04 K/mm3 (0.00-0.10); Basophils Percent Auto 0.6 % (0.0-1.0); Eosinophils Absolute Auto 0.16 K/mm3 (0.02-0.50); Eosinophils Percent Auto 2.3 % (1.0-6.0); Hematocrit 35.3 % (35.0-42.0); Hemoglobin 10.9 g/dL (11.7-13.8); Immature Granulocyte Absolute 0.05 K/mm3 (0.00-0.00); Immature Granulocyte Percent A 0.7 % (0.0-0.0); Lymphocytes Absolute Auto 1.39 K/mm3 (1.10-4.50); Lymphocytes Percent Auto 19.9 % (18.0-42.0); Mean Corpuscular HGB Conc 30.9 g/dL (32-36); Mean Corpuscular Hemoglobin 27.5 pg (27.0-31.0); Mean Corpuscular Volume 89.1 fL (78.0-102.0); Mean Platelet Volume 10.4 fl (9.2-11.8); Monocytes Absolute Auto 0.88 K/mm3 (0.10-0.90); Monocytes Percent Auto 12.6 % (2.0-11.0); Neutrophils Absolute Auto 4.47 K/mm3 (1.70-7.20); Neutrophils Percent Auto 63.9 % (50.0-70.0); Platelet Count Result 234 K/mm3 (150-420); Red Blood Count 3.96 M/mm3 (4.20-5.40); Red Cell Distribution Width 15.8 % (11.6-14.4)
[2023-07-07 17:42] LABS: Lactic Acid Reflex 1.6 mmol/L (0.4-2.0)
[2023-07-07 17:44] LABS: Alanine Aminotransferase 20 U/L (14-59); Albumin Level 3.1 g/dL (3.4-5.0); Alkaline Phosphatase 69 U/L (46-116); Anion Gap 8 mmol/L (8-16); Aspartate Amino Transferase 18 U/L (15-37); Bilirubin,Total 0.2 mg/dL (0.00-1.00); Blood Urea Nitrogen 49 mg/dL (7-18); Calcium 8.4 mg/dL (8.5-10.1); Carbon Dioxide 27 mmol/L (21-32); Chloride 103 mmol/L (98-108); Estimated CRCL calculation 19 ml/min; Estimated Glomerular Filt Rate 30; Glucose 108 mg/dL (70-99); NT Pro B Type Natriuretic Pept 7857 pg/mL (0-450); Osmolality Calculated 300 mOsm/kg (285-295); Potassium 4.8 mmol/L (3.5-5.1); Sodium 138 mmol/L (136-145); Total Protein 6.4 g/dL (6.4-8.2)
[2023-07-07 17:58] LABS: Influenza A QL RT-PCR Negative (Negative); Influenza B QL RT-PCR Negative (Negative); RSV RNA, RT-PCR Positive (Negative); SARS-CoV-2 RNA PCR Negative (Negative)
[2023-07-07 18:30] VITALS: BP 118/72; PULSE 87; RESP 20; O2SAT 98
--- NOTE | 2023-07-07 18:37 | ED.GENADULT ---
HPI - General Adult General Chief complaint: Unspecified Stated complaint: confusion Source: patient and EMS Mode of arrival: EMS Limitations: physical limitation History of Present Illness HPI narrative: this is a 82-year-old female who presents via EMS with lower extremity edema has a cough mild shortness breath no chills cough is nonproductive has a history of COPD atrial fibrillation and recently started on Lasix for peripheral edema. There is no nausea vomiting no abdominal pain no flank pain no hematuria or dysuria Onset (ago): day(s) Location: lower extremity Radiation: non-radiation Severity: moderate Quality: aching Pain Consistency: constant Related Data Home Medications Medication Instructions Recorded Confirmed loratadine 10 mg tablet 10 mg PO DAILY 11/30/22 07/05/23 pantoprazole 40 mg tablet,delayed 40 mg PO DAILY 05/10/23 07/05/23 release (Protonix) acetaminophen 500 mg capsule 500 mg PO DAILY PRN Pain (Scale 06/04/23 07/05/23 Score 1-3) baclofen 5 mg tablet 5 mg PO DAILY 06/04/23 07/05/23 gabapentin 300 mg capsule 300 mg PO BID 06/04/23 07/05/23 Allergies Allergy/AdvReac Type Severity Reaction Status Date / Time codeine Allergy Unknown Difficulty Verified 07/07/23 18:32 Breathing iodine Allergy Unknown Anaphylactic Verified 07/07/23 18:32 Shock meperidine Allergy Unknown Difficulty Verified 07/07/23 18:32 Breathing Penicillins Allergy Unknown Anaphylactic Verified 07/07/23 18:32 Shock propoxyphene Allergy Unknown Confusion Verified 07/07/23 18:32 tramadol Allergy Unknown Difficulty Verified 07/07/23 18:32 Breathing Anesthesia Med Allergy Severe Difficulty Uncoded 07/05/23 13:35 Breathing Darvocet A500 Allergy Intermediate Unknown Uncoded 07/05/23 13:35 Anesthesia Med Allergy Allergy Unknown Difficulty Uncoded 07/05/23 13:35 Breathing Darvocet-N Allergy Unknown Difficulty Uncoded 07/05/23 13:35 Breathing Review of Systems Review of Systems: All systems reviewed & are unremarkable except as noted in HPI and below PMFSH Past Medical History Medical History Arthritis Carotid artery stenosis Diverticulitis Duodenal ulcer disease Hyperlipemia Hypertension Left knee DJD Nicotine dependence, cigarettes, in remission Right knee DJD Upper GI bleed (03/2023) Secondary to duodenal ulcers from NSAIDs. Surgical History Surgical History History of bladder repair surgery History of cataract extraction with lens replacement History of cholecystectomy History of hysterectomy History of right-sided carotid endarterectomy History of tonsillectomy Family History Family History Mother Family history of schizophrenia Father Heart failure Sibling Brain tumor Other Family history of malignant neoplasm Social History Social History Social History: Surrogate medical decision maker: Suni Weston, daughter. Code status: Full code. Smoking packs per day: 1 Smoking cigarettes per day: 20.0 Years smoked: 70 Smoking pack-years: 70.00 Smoking status: Former smoker Alcohol intake: never Substance use: never Substance use type: does not use Do You Feel Safe in your Home?: Yes Lack of Transportation: No Lack of Food: Never True Current Housing: I Have Housing Concerned About Future Housing: No Difficulty Paying Gas/Electric Bills: No Difficulty Paying for Meds: No Currently Unemployed: No Education: High School Diploma/GED Difficulty w/ Childcare or Family Care: No Living arrangements: alone Additional living arrangements comments: . Lives alone in [place]. Occupation/Education: retired Additional occupation/education comments: She and her owned a
[2023-07-07] MEDS: KETOROLAC 15 MG/ML VIAL (*BKC) IM (18:38)
[2023-07-07] MEDS: FUROSEMIDE INJ 40 MG/4 ML VIAL IV PUSH (18:39)
[2023-07-07 18:46] VITALS: PULSE 103; RESP 18; O2SAT 94
--- NOTE | 2023-07-07 19:35 | PC.NURSE ---
Pt assisted to [facility] to urinate. Pt urinated approx 300 ml and urine collected and sent to lab. Pt given warm blanket and updated on waiting for bed assignment for admit.
[2023-07-07 19:47] LABS: Appearance Urine Clear (Clear); Bilirubin Urine Negative (Negative); Blood Urine Negative (Negative); Color Urine Light Yellow (Yellow); Glucose Urine UA Negative (Negative); Ketones Urine Negative (Negative); Leukocyte Esterase Ur Negative LEU/UL (Negative); Nitrate Urine Negative (Negative); Protein Urine Negative (Negative); Urobilinogen Urine 0.2 mg/dL (0.2-1.0)
[2023-07-07 19:48] LABS: Add Urine Microscopic? NO
[2023-07-07 20:00] VITALS: BP 115/76; PULSE 84; RESP 20; O2SAT 98
[2023-07-07] MEDS: APIXABAN 2.5 MG TABLET PO (21:25)
[2023-07-07] MEDS: GABAPENTIN 300 MG CAPSULE PO (21:25)
[2023-07-08] VITALS: BP 157/64; PULSE 103; RESP 18; TEMP 36.9; O2SAT 94
[2023-07-08 05:30] LABS: Basophils Absolute Auto 0.03 K/mm3 (0.00-0.10); Basophils Percent Auto 0.5 % (0.0-1.0); Eosinophils Absolute Auto 0.28 K/mm3 (0.02-0.50); Eosinophils Percent Auto 4.2 % (1.0-6.0); Hematocrit 34.2 % (35.0-42.0); Hemoglobin 10.7 g/dL (11.7-13.8); Immature Granulocyte Absolute 0.04 K/mm3 (0.00-0.00); Immature Granulocyte Percent A 0.6 % (0.0-0.0); Lymphocytes Absolute Auto 1.82 K/mm3 (1.10-4.50); Lymphocytes Percent Auto 27.6 % (18.0-42.0); Mean Corpuscular HGB Conc 31.3 g/dL (32-36); Mean Corpuscular Hemoglobin 27.9 pg (27.0-31.0); Mean Corpuscular Volume 89.1 fL (78.0-102.0); Mean Platelet Volume 10.4 fl (9.2-11.8); Monocytes Absolute Auto 0.91 K/mm3 (0.10-0.90); Monocytes Percent Auto 13.8 % (2.0-11.0); Neutrophils Absolute Auto 3.52 K/mm3 (1.70-7.20); Neutrophils Percent Auto 53.3 % (50.0-70.0); Platelet Count Result 226 K/mm3 (150-420); Red Blood Count 3.84 M/mm3 (4.20-5.40); Red Cell Distribution Width 15.9 % (11.6-14.4); White Blood Count 6.6 K/mm3 (4.8-10.8)
[2023-07-08 06:00] LABS: Alanine Aminotransferase 16 U/L (14-59); Albumin Level 2.8 g/dL (3.4-5.0); Alkaline Phosphatase 65 U/L (46-116); Anion Gap 9 mmol/L (8-16); Aspartate Amino Transferase 16 U/L (15-37); Bilirubin,Total 0.2 mg/dL (0.00-1.00); Blood Urea Nitrogen 47 mg/dL (7-18); Calcium 8.1 mg/dL (8.5-10.1); Carbon Dioxide 27 mmol/L (21-32); Chloride 106 mmol/L (98-108); Estimated CRCL calculation 21 ml/min; Estimated Glomerular Filt Rate 34; Glucose 121 mg/dL (70-99); NT Pro B Type Natriuretic Pept 11216 pg/mL (0-450); Osmolality Calculated 307 mOsm/kg (285-295); Potassium 4.3 mmol/L (3.5-5.1); Sodium 142 mmol/L (136-145)
[2023-07-08 08:00] VITALS: BP 114/74; PULSE 72; RESP 16; TEMP 36.1; O2SAT 95
[2023-07-08 08:31] VITALS: PULSE 68
[2023-07-08] MEDS: GABAPENTIN 300 MG CAPSULE PO ×2 (08:31→21:08)
[2023-07-08] MEDS: METOPROLOL SUCCINATE EXT REL 50 MG TABCR 150 MG PO (08:31)
[2023-07-08] MEDS: dilTIAZem HCL CD 240 MG CAP.24HR PO (08:31)
[2023-07-08] MEDS: ATORVASTATIN 40 MG TABLET PO (08:31)
[2023-07-08] MEDS: APIXABAN 2.5 MG TABLET PO ×2 (08:31→21:08)
[2023-07-08] MEDS: BACLOFEN 5 MG TABLET PO (08:31)
[2023-07-08] MEDS: PANTOPRAZOLE 40 MG TABLET PO (08:32)
[2023-07-08] MEDS: FUROSEMIDE INJ 20 MG/2 ML VIAL IV PUSH (08:32)
[2023-07-08] MEDS: LORATADINE 10 MG TABLET PO (08:32)
[2023-07-08] MEDS: MAG HYDROX/AL HYDROX/SIMETH 30 ML UDC PO (08:32)
--- NOTE | 2023-07-08 08:52 | PM.IMHP ---
H&P: HPI History of Present Illness Date/Time: 07/08/23 08:52 Chief Complaint: weakness, cough Narrative: This is an 82-year-old female patient lives independently at home only recently sold her car and no longer drives who presented to the emergency department yesterday for week-long history of cough, fatigue and weakness. Patient reports feeling like she started having some cold symptoms about 7-8 days ago and since then has been feeling weaker and weaker to the point she could no longer get around at home so she came to the emergency department for evaluation. In the ER patient had chest x-ray with finding slight interval increase in pulmonary edema with elevated proBNP. ED provider admitted patient to the floor and ordered echocardiogram be completed this morning. On my evaluation patient states that she is feeling somewhat better but still wanting to sleep a lot. Review of labs shows that patient usually has normal renal function and she had significant LV on presentation with a Serum creatinine 1.63 and estimated GFR down to 30 from a baseline of 0.7 and greater than 60. Patient denies any shortness of breath states that she has just had a cough that reminded her of a cold. Patient was admitted respiratory isolation for RSV. She has a history of atrial fibrillation initially found to be slightly tachycardic in the 110s that has improved with resumption of home medications. Patient is on Eliquis for VTE prophylaxis. due to neck recently not feeling well and evidence of LV along with the absence shortness of breath we will gently hydrate with IV fluids at 50 mL/hour with plan to redraw labs in morning. Patient reports that she has plans to move to [place] to be with her daughter whenever she leaves the hospital. Patient is very pleasant and very talkative appears sufficiently oriented. Review of Systems Review of Systems: All systems reviewed & are unremarkable except as noted in HPI and below PMFSH Past Medical History Medical History Arthritis Carotid artery stenosis Diverticulitis Duodenal ulcer disease Hyperlipemia Hypertension Left knee DJD Nicotine dependence, cigarettes, in remission Right knee DJD Upper GI bleed (03/2023) Secondary to duodenal ulcers from NSAIDs. Surgical History Surgical History History of bladder repair surgery History of cataract extraction with lens replacement History of cholecystectomy History of hysterectomy History of right-sided carotid endarterectomy History of tonsillectomy Family History Family History Mother Family history of schizophrenia Father Heart failure Sibling Brain tumor Other Family history of malignant neoplasm Social History Social History Social History: Surrogate medical decision maker: Suni Weston, daughter. Code status: Full code. Smoking packs per day: 1 Smoking cigarettes per day: 20.0 Years smoked: 63 Smoking pack-years: 63.00 Smoking status: Former smoker Tobacco type: cigarettes Second hand tobacco smoke exposure: No Smoking end date: 03/25/19 Alcohol intake: never Substance use: never Substance use type: does not use Do You Feel Safe in your Home?: Yes Lack of Transportation: No Lack of Food: Never True Current Housing: I Have Housing Concerned About Future Housing: No Difficulty Paying Gas/Electric Bills: No Difficulty Paying for Meds: No Currently Unemployed: No Education: High School Diploma/GED Difficulty w/ Childcare or Family Care: No Living arrangements: alone Additional living arrangements comments: . Lives alone in [place]. Occupation/Education: retired Additional occupation/education comments: She and her
--- NOTE | 2023-07-08 09:00 | ECHO_ITS ---
Patient Info Name: Kerri Scott Age: 82 years : 1940 Gender: Female Ht: 63 in Wt: 136 lbs BSA: 1.67 m2 HR: 102 bpm Technical Quality: Good Exam Date: 07/08/2023 9:44 AM Exam Location: Echo Lab Patient Status: Outpatient Admit Date: 07/07/2023 Staff Ordering Physician: William Reyez MD Biometry Teacher: Marcela Mcdonald RDCS Attending Provider: Remigio Zavala MD Referring Physician: Aissatou PRIETO; Exam Type: CA echo dop color flow w con Study Info Indications - a fib/ elevated bnp Complete two-dimensional, color flow and Doppler transthoracic echocardiogram is performed with contrast to opacify the left ventricle and to improve the deliniation of the left ventricle endocardial borders. Summary 1. Left ventricular chamber dimension is normal. 2. Left ventricular systolic function is normal, estimated at 60-65%. 3. The left ventricular diastolic function is abnormal. 4. E/e' 14 is mildly elevated. 5. Right atrial chamber dimension is mildly enlarged. 6. There is mild aortic valve sclerosis. 7. The mitral valve has mildly calcified leaflets. 8. There is trace mitral valve regurgitation. 9. There is moderate to severe tricuspid valve regurgitation. 10. Mild pulmonary hypertension, estimated pulmonary arterial systolic pressure is 47 mmHg. Left Ventricle E/e' 14 is mildly elevated. Left ventricular chamber dimension is normal. Left ventricular systolic function is normal, estimated at 60-65%. The left ventricular diastolic function is abnormal. Right Ventricle Right ventricular chamber dimension is normal. Right ventricular systolic function is normal and with normal TAPSE 2.6 cm. Left Atria Left atrial chamber dimension is normal. Right Atria Right atrial chamber dimension is mildly enlarged. Aortic Valve The aortic valve is trileaflet. There is mild aortic valve sclerosis. There is no aortic valve stenosis. There is no aortic valve regurgitation. Pulmonic Valve There is no pulmonic regurgitation. Mitral Valve The mitral valve has mildly calcified leaflets. There is no mitral valve stenosis. There is trace mitral valve regurgitation. Tricuspid Valve There is moderate to severe tricuspid valve regurgitation. Mild pulmonary hypertension, estimated pulmonary arterial systolic pressure is 47 mmHg. Pericardium/Pleural There is no pericardial effusion. Inferior Vena Cava Normal inferior vena cava with >50% collapse upon inspiration consistent with normal right atrial pressure, 5 mmHg. Aorta The aortic root size at the sinus of Valsalva is normal. Left Ventricular Outflow Tract Name Value Normal LVOT 2D LVOT Diameter 1.66 cm LVOT Doppler LVOT Peak Velocity 74.81 cm/s LVOT Peak Gradient 2 mmHg LVOT Mean Gradient 2 mmHg LVOT VTI 18.45 cm LVOT VTI/AV VTI Ratio 1.16 LVOT Stroke Volume 39.71 ml Pulmonic Valve Name Value Normal RVOT Doppler
[2023-07-08 11:42] LABS: Magnesium 1.7 mg/dL (1.8-2.4)
[2023-07-08] MEDS: LACTATED RINGERS 1,000 ML 50 ML IV CONT (11:57)
[2023-07-08] MEDS: MAGNESIUM OXIDE 400 MG TABLET 800 MG PO (13:21)
[2023-07-08 16:35] VITALS: BP 107/52; PULSE 93; RESP 16; TEMP 36.2; O2SAT 90
[2023-07-08 20:00] VITALS: PULSE 91; PULSE 93; RESP 18; O2SAT 92
[2023-07-08] MEDS: ACETAMINOPHEN 325 MG TABLET 650 MG PO (21:09)
[2023-07-08] MEDS: SALMET XINAFT/FLUTIC PROPIN 100 MCG/50 MCG INH CAP 1 PUFF INHALATION (21:15)
[2023-07-08 23:36] VITALS: BP 108/61; PULSE 97; RESP 20; TEMP 36.6; O2SAT 93
[2023-07-09] VITALS (12 sets, daily range): BP systolic 113–124; BP diastolic 71–84; PULSE 68–125; RESP 22–28; TEMP 36.9–37; O2SAT 84–96
[2023-07-09 05:25] LABS: Basophils Absolute Auto 0.04 K/mm3 (0.00-0.10); Basophils Percent Auto 0.6 % (0.0-1.0); Eosinophils Absolute Auto 0.24 K/mm3 (0.02-0.50); Eosinophils Percent Auto 3.6 % (1.0-6.0); Hematocrit 35.3 % (35.0-42.0); Hemoglobin 10.9 g/dL (11.7-13.8); Immature Granulocyte Absolute 0.03 K/mm3 (0.00-0.00); Immature Granulocyte Percent A 0.5 % (0.0-0.0); Lymphocytes Absolute Auto 1.82 K/mm3 (1.10-4.50); Lymphocytes Percent Auto 27.7 % (18.0-42.0); Mean Corpuscular HGB Conc 30.9 g/dL (32-36); Mean Corpuscular Hemoglobin 27.6 pg (27.0-31.0); Mean Corpuscular Volume 89.4 fL (78.0-102.0); Mean Platelet Volume 10.2 fl (9.2-11.8); Monocytes Absolute Auto 0.77 K/mm3 (0.10-0.90); Monocytes Percent Auto 11.7 % (2.0-11.0); Neutrophils Absolute Auto 3.68 K/mm3 (1.70-7.20); Neutrophils Percent Auto 55.9 % (50.0-70.0); Platelet Count Result 224 K/mm3 (150-420); Red Blood Count 3.95 M/mm3 (4.20-5.40); White Blood Count 6.6 K/mm3 (4.8-10.8)
[2023-07-09 05:44] LABS: Albumin Level 2.8 g/dL (3.4-5.0); Anion Gap 6 mmol/L (8-16); Blood Urea Nitrogen 40 mg/dL (7-18); Calcium 8.6 mg/dL (8.5-10.1); Carbon Dioxide 29 mmol/L (21-32); Chloride 108 mmol/L (98-108); Estimated CRCL calculation 27 ml/min; Estimated Glomerular Filt Rate 45; Glucose 82 mg/dL (70-99); Magnesium 1.7 mg/dL (1.8-2.4); Osmolality Calculated 304 mOsm/kg (285-295); Phosphorus 4.1 mg/dL (2.6-4.7); Potassium 4.4 mmol/L (3.5-5.1); Sodium 143 mmol/L (136-145)
[2023-07-09] MEDS: MAGNESIUM OXIDE 400 MG TABLET PO (08:31)
[2023-07-09] MEDS: ATORVASTATIN 40 MG TABLET PO (08:31)
[2023-07-09] MEDS: BACLOFEN 5 MG TABLET PO (08:31)
[2023-07-09] MEDS: dilTIAZem HCL CD 240 MG CAP.24HR PO (08:31)
[2023-07-09] MEDS: SALMET XINAFT/FLUTIC PROPIN 100 MCG/50 MCG INH CAP 1 PUFF INHALATION ×2 (08:31→21:07)
[2023-07-09] MEDS: METOPROLOL SUCCINATE EXT REL 50 MG TABCR 150 MG PO (08:31)
[2023-07-09] MEDS: LORATADINE 10 MG TABLET PO (08:31)
[2023-07-09] MEDS: GABAPENTIN 300 MG CAPSULE PO ×2 (08:31→20:58)
[2023-07-09] MEDS: APIXABAN 2.5 MG TABLET PO ×2 (08:32→20:58)
[2023-07-09] MEDS: PANTOPRAZOLE 40 MG TABLET PO (08:32)
[2023-07-09] MEDS: FUROSEMIDE INJ 20 MG/2 ML VIAL 40 MG IV PUSH (08:33)
[2023-07-09] MEDS: MAGNESIUM SULF 2 GM/WATER 50ML 2 GM/50 ML BAG IVPB (09:23)
--- NOTE | 2023-07-09 09:46 | PM.IMPN ---
Progress Note: A&P Assessment and Plan (1) (HFpEF) heart failure with preserved ejection fraction: Code(s): I50.30 - Unspecified diastolic (congestive) heart failure Status: Acute Assessment and Plan: echocardiogram shows mild pulmonary artery hypertension and diastolic dysfunction with normal LV EF of 60-65% 07/08: Oxygen required overnight while on low continuous rate IV fluids for LV/dehydration. Stopped IV fluids and gave IV Lasix. (2) LV (acute kidney injury): Code(s): N17.9 - Acute kidney failure, unspecified Status: Acute Assessment and Plan: creatinine elevated 1.6 and estimated GFR decreased to 30 from a baseline of 0.7 and greater than 60. Will initiate gentle IV rehydration believe this is related to dehydration from recent viral illness over the past week or so. (3) Respiratory syncytial virus (RSV) infection: Code(s): B33.8 - Other specified viral diseases Status: Acute Assessment and Plan: 07/07: Patient describes cold symptoms onset approximately 7 day days ago. Tested positive for RSV in the emergency department. (4) A-fib: Qualifiers: Atrial fibrillation type: unspecified chronic Qualified Code(s): I48.20 - Chronic atrial fibrillation, unspecified Code(s): I48.91 - Unspecified atrial fibrillation Status: Acute Assessment and Plan: 07/07: Prior history atrial fibrillation, was rapid ventricular rate on admission but has since returned to a normal rate. Continue Eliquis. Continue diltiazem. Continue metoprolol. 07/08: RVR this morning with decreased oxygen saturation. (5) Hypertension: Code(s): I10 - Essential (primary) hypertension Status: Acute Assessment and Plan: stable, resume home medications. (6) Generalized weakness: Code(s): R53.1 - Weakness Status: Acute Assessment and Plan: Consult PT and OT Time Spent With Patient Time with patient: Greater than 35 minutes Subjective Date/time seen: 07/09/23 09:46 Interval history: Patient requested oxygen overnight, saturating in 80s on room air and 91 with 1 liter/minute. Stopped IV fluids (which had helped LV) and ordered IV Lasix. Rapid afib on telemetry up to 120 and patient short of breath with ambulation. IV magnesium ordered for continued 1.7 mag level despite oral replacement yesterday. Review of Systems Review of Systems: All systems reviewed & are unremarkable except as noted in HPI and below Exam Narrative: GENERAL: Appears stated age, mildly fatigued appearing, exertional dyspnea, supplemental oxygenation in place by nasal cannula HEAD: Normocephalic, atraumatic. ENT:? Mucous membranes moist. CHEST: diminished lung sounds with crackles to auscultation.? HEART: tachycardic rate and irregular rhythm. ? Normal peripheral pulses. ABDOMEN: Soft, nontender, nondistended. EXTREMITIES: Normal range of motion. Bilateral lower extremity edema worse on the left which patient reports is improved since admission, compression stockings in place SKIN: Warm dry normal color NEURO: Alert and oriented x3. PSYCH: Normal mood and affect Objective Data Vital Signs Vital Signs: Vital Signs - 24 hr 07/08/23 16:35 07/08/23 20:00 07/08/23 20:00 Temperature 36.2 C L Pulse Rate 93 93 91 Respiratory Rate 16 18 Blood Pressure 107/52 L Pulse Oximetry 90 92 Oxygen Delivery Room Air Nasal Cannula Oxygen Flow Rate 1 07/08/23 23:36 07/08/23 23:36 07/09/23 03:30 Temperature 36.6 C Pulse Rate 97 97 110 H Respiratory Rate 20 Blood Pressure 108/61 Pulse Oximetry 93 Oxygen Delivery Nasal Cannula Oxygen Flow Rate 1 07/09/23 08:31 Temperature Pulse Rate 112 H Respiratory Rate Blood Pressure Pulse Oximetry Oxygen Delivery Oxygen Flow Rate Intake/Output Intake/Output: Intake & Output 07/06/23 07/07/23 07/08/23 07/09/23 23:59 23:59 23:59 23:59 Intake Total 1360
[2023-07-10] VITALS (8 sets, daily range): BP systolic 115–124; BP diastolic 67–78; PULSE 78–94; RESP 16–20; TEMP 36.2–36.6; O2SAT 92–93
[2023-07-10 06:04] LABS: Basophils Absolute Auto 0.04 K/mm3 (0.00-0.10); Basophils Percent Auto 0.5 % (0.0-1.0); Eosinophils Absolute Auto 0.29 K/mm3 (0.02-0.50); Eosinophils Percent Auto 3.6 % (1.0-6.0); Hematocrit 37.1 % (35.0-42.0); Hemoglobin 11.4 g/dL (11.7-13.8); Immature Granulocyte Absolute 0.06 K/mm3 (0.00-0.00); Immature Granulocyte Percent A 0.8 % (0.0-0.0); Immature Platelet Fraction Pct 8.2 % (1.0-7.0); Lymphocytes Absolute Auto 1.54 K/mm3 (1.10-4.50); Lymphocytes Percent Auto 19.3 % (18.0-42.0); Mean Corpuscular HGB Conc 30.7 g/dL (32-36); Mean Corpuscular Hemoglobin 27.7 pg (27.0-31.0); Mean Corpuscular Volume 90.3 fL (78.0-102.0); Mean Platelet Volume 11.6 fl (9.2-11.8); Monocytes Absolute Auto 0.88 K/mm3 (0.10-0.90); Neutrophils Absolute Auto 5.18 K/mm3 (1.70-7.20); Neutrophils Percent Auto 64.8 % (50.0-70.0); Platelet Count Result 195 K/mm3 (150-420); Red Blood Count 4.11 M/mm3 (4.20-5.40); Red Cell Distribution Width 16.4 % (11.6-14.4)
[2023-07-10 06:15] LABS: Anion Gap 7 mmol/L (8-16); Blood Urea Nitrogen 31 mg/dL (7-18); Calcium 8.7 mg/dL (8.5-10.1); Carbon Dioxide 33 mmol/L (21-32); Chloride 106 mmol/L (98-108); Estimated CRCL calculation 30 ml/min; Estimated Glomerular Filt Rate 52; Glucose 100 mg/dL (70-99); Magnesium 1.8 mg/dL (1.8-2.4); Osmolality Calculated 308 mOsm/kg (285-295); Potassium 4.7 mmol/L (3.5-5.1); Sodium 146 mmol/L (136-145)
--- NOTE | 2023-07-10 08:15 | PM.IMPN ---
Progress Note: A&P Assessment and Plan (1) (HFpEF) heart failure with preserved ejection fraction: Code(s): I50.30 - Unspecified diastolic (congestive) heart failure Status: Acute Assessment and Plan: echocardiogram shows mild pulmonary artery hypertension and diastolic dysfunction with normal LV EF of 60-65% 07/08: Oxygen required overnight while on low continuous rate IV fluids for LV/dehydration. Stopped IV fluids and gave IV Lasix. 07/09: Still requires supplemental oxygenation, Increase Lasix to 40 mg BID. LV improved further. (2) LV (acute kidney injury): Code(s): N17.9 - Acute kidney failure, unspecified Status: Acute Assessment and Plan: creatinine elevated 1.6 and estimated GFR decreased to 30 from a baseline of 0.7 and greater than 60. Will initiate gentle IV rehydration believe this is related to dehydration from recent viral illness over the past week or so. 07/09: Improving. Cr 1.01, BUN 31, eGFR 52, estimated creatinine clearance 30 (3) Respiratory syncytial virus (RSV) infection: Code(s): B33.8 - Other specified viral diseases Status: Acute Assessment and Plan: 07/07: Patient describes cold symptoms onset approximately 7 day days ago. Tested positive for RSV in the emergency department. (4) A-fib: Qualifiers: Atrial fibrillation type: unspecified chronic Qualified Code(s): I48.20 - Chronic atrial fibrillation, unspecified Code(s): I48.91 - Unspecified atrial fibrillation Status: Acute Assessment and Plan: 07/07: Prior history atrial fibrillation, was rapid ventricular rate on admission but has since returned to a normal rate. Continue Eliquis. Continue diltiazem. Continue metoprolol. 07/08: RVR this morning with decreased oxygen saturation. 07/09: Borderline RVR, continue diltiazem and Eliquis. (5) Hypertension: Code(s): I10 - Essential (primary) hypertension Status: Acute Assessment and Plan: stable, resume home medications. (6) Generalized weakness: Code(s): R53.1 - Weakness Status: Acute Assessment and Plan: Consult PT and OT 07/09: Patient may need SNF/supplemental oxygen for a while after acute discharge. May be swing bed candidate. Will reassess tomorrow. (7) Acute hypoxic respiratory failure: Code(s): J96.01 - Acute respiratory failure with hypoxia Status: Acute Assessment and Plan: 07/08: Oxygen required overnight while on low continuous rate IV fluids for LV/dehydration. Stopped IV fluids and gave IV Lasix. 07/09: Still requires supplemental oxygenation, Increase Lasix to 40 mg BID. LV improved further. Time Spent With Patient Time with patient: Greater than 35 minutes Subjective Date/time seen: 07/10/23 08:15 Interval history: Patient reports right knee is painful only in a small spot where there appears to be a small bruise/abrasion. Patient denies any known injury. She reports it hurt all night and she did not rest well. Patient reports her breathing feels improved today but she still feels significantly weak. Patient reports when she gets better she will have to pack and get rid of furniture because she is going to live with her daughter in [place]. Patient still requires supplemental oxygenation at 2 liters/minute. She has not previously required oxygen. Patient very talkative today and appears in better spirits today than yesterday. Review of Systems Review of Systems: All systems reviewed & are unremarkable except as noted in HPI and below Exam Narrative: GENERAL: Appears stated age, mildly fatigued appearing, exertional dyspnea, supplemental oxygenation in place by nasal cannula HEAD: Normocephalic, atraumatic. ENT:? Mucous membranes moist. CHEST: Diminished lung sounds with slight crackles to auscultation.? HEART: Borderline tachycardic rate and irregular rhythm. ? Normal peripheral pulses. Atrial fibrillation with
[2023-07-10] MEDS: FUROSEMIDE INJ 20 MG/2 ML VIAL 40 MG IV PUSH (08:40)
[2023-07-10] MEDS: MAGNESIUM OXIDE 400 MG TABLET PO ×2 (08:40→17:37)
[2023-07-10] MEDS: LORATADINE 10 MG TABLET PO (08:41)
[2023-07-10] MEDS: METOPROLOL SUCCINATE EXT REL 50 MG TABCR 150 MG PO (08:41)
[2023-07-10] MEDS: APIXABAN 2.5 MG TABLET PO ×2 (08:41→20:13)
[2023-07-10] MEDS: BACLOFEN 5 MG TABLET PO (08:41)
[2023-07-10] MEDS: PANTOPRAZOLE 40 MG TABLET PO (08:41)
[2023-07-10] MEDS: ATORVASTATIN 40 MG TABLET PO (08:41)
[2023-07-10] MEDS: dilTIAZem HCL CD 240 MG CAP.24HR PO (08:41)
[2023-07-10] MEDS: GABAPENTIN 300 MG CAPSULE PO ×2 (08:42→20:13)
[2023-07-10] MEDS: SALMET XINAFT/FLUTIC PROPIN 100 MCG/50 MCG INH CAP 1 PUFF INHALATION ×2 (08:52→20:19)
[2023-07-10] MEDS: ACETAMINOPHEN 325 MG TABLET 650 MG PO (12:17)
[2023-07-10] MEDS: FUROSEMIDE INJ 40 MG/4 ML VIAL IV PUSH (17:37)
[2023-07-11] VITALS (16 sets, daily range): BP systolic 86–133; BP diastolic 39–68; PULSE 72–111; RESP 14–18; TEMP 35.9–36.6; O2SAT 92–98
[2023-07-11 05:27] LABS: Basophils Absolute Auto 0.02 K/mm3 (0.00-0.10); Basophils Percent Auto 0.3 % (0.0-1.0); Eosinophils Absolute Auto 0.28 K/mm3 (0.02-0.50); Eosinophils Percent Auto 3.8 % (1.0-6.0); Hematocrit 35.6 % (35.0-42.0); Hemoglobin 10.9 g/dL (11.7-13.8); Immature Granulocyte Absolute 0.04 K/mm3 (0.00-0.00); Immature Granulocyte Percent A 0.5 % (0.0-0.0); Lymphocytes Absolute Auto 1.75 K/mm3 (1.10-4.50); Mean Corpuscular HGB Conc 30.6 g/dL (32-36); Mean Corpuscular Hemoglobin 27.5 pg (27.0-31.0); Mean Corpuscular Volume 89.9 fL (78.0-102.0); Mean Platelet Volume 10.3 fl (9.2-11.8); Monocytes Absolute Auto 0.81 K/mm3 (0.10-0.90); Monocytes Percent Auto 11.1 % (2.0-11.0); Neutrophils Absolute Auto 4.38 K/mm3 (1.70-7.20); Neutrophils Percent Auto 60.3 % (50.0-70.0); Platelet Count Result 239 K/mm3 (150-420); Red Blood Count 3.96 M/mm3 (4.20-5.40); Red Cell Distribution Width 16.2 % (11.6-14.4); White Blood Count 7.3 K/mm3 (4.8-10.8)
[2023-07-11 05:49] LABS: Albumin Level 2.9 g/dL (3.4-5.0); Anion Gap 7 mmol/L (8-16); Blood Urea Nitrogen 26 mg/dL (7-18); Calcium 8.7 mg/dL (8.5-10.1); Carbon Dioxide 35 mmol/L (21-32); Chloride 104 mmol/L (98-108); Estimated CRCL calculation 32 ml/min; Estimated Glomerular Filt Rate 56; Glucose 83 mg/dL (70-99); Magnesium 1.6 mg/dL (1.8-2.4); Osmolality Calculated 305 mOsm/kg (285-295); Phosphorus 3.8 mg/dL (2.6-4.7); Potassium 4.5 mmol/L (3.5-5.1); Sodium 146 mmol/L (136-145)
[2023-07-11] MEDS: MAGNESIUM OXIDE 400 MG TABLET PO ×2 (08:30→17:50)
[2023-07-11] MEDS: SALMET XINAFT/FLUTIC PROPIN 100 MCG/50 MCG INH CAP 1 PUFF INHALATION ×2 (09:15→21:18)
[2023-07-11] MEDS: METOPROLOL SUCCINATE EXT REL 50 MG TABCR 150 MG PO (09:30)
[2023-07-11] MEDS: BACLOFEN 5 MG TABLET PO (09:31)
[2023-07-11] MEDS: ATORVASTATIN 40 MG TABLET PO (09:31)
[2023-07-11] MEDS: GABAPENTIN 300 MG CAPSULE PO ×2 (09:31→21:18)
[2023-07-11] MEDS: dilTIAZem HCL CD 240 MG CAP.24HR PO (09:31)
[2023-07-11] MEDS: LORATADINE 10 MG TABLET PO (09:31)
[2023-07-11] MEDS: PANTOPRAZOLE 40 MG TABLET PO (09:31)
[2023-07-11] MEDS: MAGNESIUM SULF 4 GM/WATER100ML 4 GM/100 ML BAG IVPB (09:32)
[2023-07-11] MEDS: APIXABAN 2.5 MG TABLET PO ×2 (09:32→21:18)
[2023-07-11] MEDS: FUROSEMIDE INJ 40 MG/4 ML VIAL IV PUSH (09:32)
--- NOTE | 2023-07-11 10:17 | PM.IMPN ---
Progress Note: A&P Assessment and Plan (1) (HFpEF) heart failure with preserved ejection fraction: Code(s): I50.30 - Unspecified diastolic (congestive) heart failure Status: Acute Assessment and Plan: echocardiogram shows mild pulmonary artery hypertension and diastolic dysfunction with normal LV EF of 60-65% 07/08: Oxygen required overnight while on low continuous rate IV fluids for LV/dehydration. Stopped IV fluids and gave IV Lasix. 07/09: Still requires supplemental oxygenation, Increase Lasix to 40 mg BID. LV improved further. 07/10: CXR appears improved pulmonary edema. Atelectasis vs pneumonia noted. LV improved further. (2) LV (acute kidney injury): Code(s): N17.9 - Acute kidney failure, unspecified Status: Acute Assessment and Plan: creatinine elevated 1.6 and estimated GFR decreased to 30 from a baseline of 0.7 and greater than 60. Will initiate gentle IV rehydration believe this is related to dehydration from recent viral illness over the past week or so. 07/09: Improving. Cr 1.01, BUN 31, eGFR 52, estimated creatinine clearance 30 07/10: Continued improvement (3) Respiratory syncytial virus (RSV) infection: Code(s): B33.8 - Other specified viral diseases Status: Acute Assessment and Plan: 07/07: Patient describes cold symptoms onset approximately 7 day days ago. Tested positive for RSV in the emergency department. 07/10: Isolation removed. Ordered neb treatments and doxycycline due to imaging finding of atelectasis vs pneumonia. Attempt to wean oxygen if tolerated. (4) A-fib: Qualifiers: Atrial fibrillation type: unspecified chronic Qualified Code(s): I48.20 - Chronic atrial fibrillation, unspecified Code(s): I48.91 - Unspecified atrial fibrillation Status: Acute Assessment and Plan: 07/07: Prior history atrial fibrillation, was rapid ventricular rate on admission but has since returned to a normal rate. Continue Eliquis. Continue diltiazem. Continue metoprolol. 07/08: RVR this morning with decreased oxygen saturation. 07/09: Borderline RVR, continue diltiazem and Eliquis. 07/10: Unchanged (5) Hypertension: Code(s): I10 - Essential (primary) hypertension Status: Acute Assessment and Plan: stable, resume home medications. (6) Generalized weakness: Code(s): R53.1 - Weakness Status: Acute Assessment and Plan: Consult PT and OT 07/09: Patient may need SNF/supplemental oxygen for a while after acute discharge. May be swing bed candidate. Will reassess tomorrow. (7) Acute hypoxic respiratory failure: Code(s): J96.01 - Acute respiratory failure with hypoxia Status: Acute Assessment and Plan: 07/08: Oxygen required overnight while on low continuous rate IV fluids for LV/dehydration. Stopped IV fluids and gave IV Lasix. 07/09: Still requires supplemental oxygenation, Increase Lasix to 40 mg BID. LV improved further. 07/10: Repeat CXR shows improved pulmonary edema but demonstrates atelectasis vs pneumonia. (8) Community acquired bacterial pneumonia: Code(s): J15.9 - Unspecified bacterial pneumonia Status: Acute Assessment and Plan: Atelectasis vs pneumonia with hypoxia even after improvement with pulmonary edema. Time Spent With Patient Time with patient: Greater than 35 minutes Subjective Date/time seen: 07/11/23 10:17 Interval history: Patient still complaining of right knee pain as reported yesterday. Patient states that breathing is better today but she is still overall feeling weak. No new symptoms or complaints. Patient still requiring oxygen. Repeat CXR shows improved pulmonary edema with findings of atelectasis vs pneumonia. Will remove patient from isolation and start incentive spirometer, Duonebs and doxycycline. Attempt to wean oxygen as tolerated. Hope to change status to Swing Bed tomorrow. IV magnesium ordered du
[2023-07-11] MEDS: IPRATROPIUM 0.5 MG/ALBUTEROL SULFATE 2.5 MG AMPUL.NEB 3 ML INHALATION ×2 (11:18→17:22)
[2023-07-11] MEDS: DOXYCYCLINE HYCLATE 100 MG TABLET PO ×2 (12:16→21:18)
--- NOTE | 2023-07-11 14:31 | PC.NURSE ---
Pt is off isolation and was moved to room 208. Pt has tolerated the Mg infusion well .
--- NOTE | 2023-07-11 18:27 | PC.NURSE ---
Renetta Porras, PRICING STRATEGIST/Hospitalist, notified of patient's blood pressure being 86/40 while sitting in the chair and after being put to bed patient's blood pressure was 95/50. Patient c/o dizziness. New orders received for NS 250ml bolus x1 bag.
[2023-07-11] MEDS: SODIUM CHLORIDE 0.9% IV 250 ML 999 ML IV CONT (18:40)
[2023-07-11] MEDS: ACETAMINOPHEN 325 MG TABLET 650 MG PO (18:42)
--- NOTE | 2023-07-11 20:13 | PC.NURSE ---
1909 Renetta Porras [employer] SCARFER TENDER/Hospitalist notified of current blood pressure after NS 250ml bolus completed. Will monitor condition.
[2023-07-12] VITALS (21 sets, daily range): BP systolic 79–111; BP diastolic 37–65; PULSE 63–111; RESP 16–22; TEMP 36.1–36.4; O2SAT 86–99
[2023-07-12] MEDS: IPRATROPIUM 0.5 MG/ALBUTEROL SULFATE 2.5 MG AMPUL.NEB 3 ML INHALATION ×4 (00:26→18:05)
[2023-07-12 05:17] LABS: Basophils Absolute Auto 0.03 K/mm3 (0.00-0.10); Basophils Percent Auto 0.4 % (0.0-1.0); Eosinophils Absolute Auto 0.28 K/mm3 (0.02-0.50); Eosinophils Percent Auto 3.7 % (1.0-6.0); Hematocrit 35.4 % (35.0-42.0); Immature Granulocyte Absolute 0.03 K/mm3 (0.00-0.00); Immature Granulocyte Percent A 0.4 % (0.0-0.0); Lymphocytes Absolute Auto 2.05 K/mm3 (1.10-4.50); Mean Corpuscular HGB Conc 31.1 g/dL (32-36); Mean Corpuscular Hemoglobin 27.8 pg (27.0-31.0); Mean Corpuscular Volume 89.6 fL (78.0-102.0); Monocytes Absolute Auto 0.85 K/mm3 (0.10-0.90); Monocytes Percent Auto 11.2 % (2.0-11.0); Neutrophils Absolute Auto 4.34 K/mm3 (1.70-7.20); Neutrophils Percent Auto 57.3 % (50.0-70.0); Platelet Count Result 228 K/mm3 (150-420); Red Blood Count 3.95 M/mm3 (4.20-5.40); Red Cell Distribution Width 16.4 % (11.6-14.4); White Blood Count 7.6 K/mm3 (4.8-10.8)
[2023-07-12 05:34] LABS: Albumin Level 2.8 g/dL (3.4-5.0); Anion Gap 1 mmol/L (8-16); Blood Urea Nitrogen 24 mg/dL (7-18); Carbon Dioxide 40 mmol/L (21-32); Chloride 102 mmol/L (98-108); Estimated CRCL calculation 29 ml/min; Estimated Glomerular Filt Rate 50; Glucose 88 mg/dL (70-99); Magnesium 2.2 mg/dL (1.8-2.4); Osmolality Calculated 299 mOsm/kg (285-295); Phosphorus 4.2 mg/dL (2.6-4.7); Potassium 4.3 mmol/L (3.5-5.1); Sodium 143 mmol/L (136-145)
[2023-07-12 05:39] LABS: Calcium 8.6 mg/dL (8.5-10.1)
[2023-07-12] MEDS: MAGNESIUM OXIDE 400 MG TABLET PO ×2 (08:20→17:09)
[2023-07-12] MEDS: SALMET XINAFT/FLUTIC PROPIN 100 MCG/50 MCG INH CAP 1 PUFF INHALATION ×2 (08:58→20:43)
[2023-07-12] MEDS: FUROSEMIDE INJ 40 MG/4 ML VIAL IV PUSH (09:00)
[2023-07-12] MEDS: METOPROLOL SUCCINATE EXT REL 50 MG TABCR 150 MG PO (09:02)
[2023-07-12] MEDS: PANTOPRAZOLE 40 MG TABLET PO (09:02)
[2023-07-12] MEDS: dilTIAZem HCL CD 240 MG CAP.24HR PO (09:02)
[2023-07-12] MEDS: ATORVASTATIN 40 MG TABLET PO (09:03)
[2023-07-12] MEDS: LORATADINE 10 MG TABLET PO (09:03)
[2023-07-12] MEDS: BACLOFEN 5 MG TABLET PO (09:03)
[2023-07-12] MEDS: DOXYCYCLINE HYCLATE 100 MG TABLET PO ×2 (09:03→20:45)
[2023-07-12] MEDS: GABAPENTIN 300 MG CAPSULE PO ×2 (09:03→20:45)
[2023-07-12] MEDS: APIXABAN 2.5 MG TABLET PO ×2 (09:04→20:45)
--- NOTE | 2023-07-12 09:08 | PC.NURSE ---
IVP lasix not given. Line blew while flushing. RO
[2023-07-12] MEDS: FUROSEMIDE 20 MG TABLET PO (09:32)
--- NOTE | 2023-07-12 10:36 | PM.IMPN ---
Progress Note: A&P Assessment and Plan (1) (HFpEF) heart failure with preserved ejection fraction: Code(s): I50.30 - Unspecified diastolic (congestive) heart failure Status: Acute Assessment and Plan: echocardiogram shows mild pulmonary artery hypertension and diastolic dysfunction with normal LV EF of 60-65% 07/08: Oxygen required overnight while on low continuous rate IV fluids for LV/dehydration. Stopped IV fluids and gave IV Lasix. 07/09: Still requires supplemental oxygenation, Increase Lasix to 40 mg BID. LV improved further. 07/10: CXR appears improved pulmonary edema. Atelectasis vs pneumonia noted. LV improved further. 07/11: Small fluid bolus (250 mL) given last night to support blood pressure and today patient appears to be fluid overloaded again. Continue Lasix, add albumin for blood pressure support (2) LV (acute kidney injury): Code(s): N17.9 - Acute kidney failure, unspecified Status: Acute Assessment and Plan: creatinine elevated 1.6 and estimated GFR decreased to 30 from a baseline of 0.7 and greater than 60. Will initiate gentle IV rehydration believe this is related to dehydration from recent viral illness over the past week or so. 07/09: Improving. Cr 1.01, BUN 31, eGFR 52, estimated creatinine clearance 30 07/10: Continued improvement 07/11: Creatinine 1.04, BUN 24, estimated GFR 50, estimated creatinine clearance 29 (3) A-fib: Qualifiers: Atrial fibrillation type: unspecified chronic Qualified Code(s): I48.20 - Chronic atrial fibrillation, unspecified Code(s): I48.91 - Unspecified atrial fibrillation Status: Acute Assessment and Plan: 07/07: Prior history atrial fibrillation, was rapid ventricular rate on admission but has since returned to a normal rate. Continue Eliquis. Continue diltiazem. Continue metoprolol. 07/08: RVR this morning with decreased oxygen saturation. 07/09: Borderline RVR, continue diltiazem and Eliquis. 07/10: Unchanged 07/11: unchanged (4) Hypertension: Code(s): I10 - Essential (primary) hypertension Status: Acute Assessment and Plan: stable, resume home medications. Blood pressure reviewed on 07/11, slightly low, hold antihypertensives, continue diuretics and IV albumin to support blood pressure (5) Generalized weakness: Code(s): R53.1 - Weakness Status: Acute Assessment and Plan: Consult PT and OT 07/09: Patient may need SNF/supplemental oxygen for a while after acute discharge. May be swing bed candidate. Will reassess tomorrow. 07/11: patient still requires inpatient stay, will definitely need swing bed upon discharge from acute care (6) Acute hypoxic respiratory failure: Code(s): J96.01 - Acute respiratory failure with hypoxia Status: Acute Assessment and Plan: 07/08: Oxygen required overnight while on low continuous rate IV fluids for LV/dehydration. Stopped IV fluids and gave IV Lasix. 07/09: Still requires supplemental oxygenation, Increase Lasix to 40 mg BID. LV improved further. 07/10: Repeat CXR shows improved pulmonary edema but demonstrates atelectasis vs pneumonia. 07/11: unsuccessful attempt to wean from oxygen, apparent continued fluid overload status after small IV fluid bolus yesterday. (7) Community acquired bacterial pneumonia: Code(s): J15.9 - Unspecified bacterial pneumonia Status: Acute Assessment and Plan: Atelectasis vs pneumonia with hypoxia even after improvement with pulmonary edema. 07/11: Added IV Levaquin. Blood cultures in progress. MRSA nares negative. Prior sputum culture showed Gram-positive cocci in clusters and yeast. Patient unable to produce sputum sample for culture at this time. Ordered urine pneumococcal antigen and Legionella antigen. (8) Respiratory syncytial virus (RSV) infection: Code(s): B33.8 - Other specified viral diseases Status: Resolved Assessment and Pl
[2023-07-12 11:54] LABS: Appearance Urine Clear (Clear); Bilirubin Urine Negative (Negative); Blood Urine Negative (Negative); Color Urine Light Yellow (Yellow); Glucose Urine UA Negative (Negative); Ketones Urine Negative (Negative); Leukocyte Esterase Ur Negative LEU/UL (Negative); Nitrate Urine Negative (Negative); Protein Urine Negative (Negative); Specific Grav Ur 1.015 (1.010-1.020); Urobilinogen Urine 0.2 mg/dL (0.2-1.0); pH Urine 7.5 (5.0-8.0)
[2023-07-12 11:54] LABS: NT Pro B Type Natriuretic Pept 5573 pg/mL (0-450)
--- NOTE | 2023-07-12 12:00 | PC.NURSE ---
Patient had coughing fit in room. Nurse Melba in room with patietn. Patient turned red while coughing. Manual blood pressure take, 108/58. Patient assisted back to bed by this nurse and nurse Melba. HOB elevated. INTERACTIVE MEDIA PROJECT MANAGER alisson aware of coughing fit. N.O. Received. Nurse Melba cont. in room with patient. Patient resting comfortably in bed currently.
[2023-07-12 12:01] LABS: Add Urine Microscopic? NO
[2023-07-12] MEDS: FUROSEMIDE INJ 20 MG/2 ML VIAL IV PUSH (12:12)
[2023-07-12 12:14] LABS: Lactic Acid Reflex 1.1 mmol/L (0.4-2.0)
[2023-07-12] MEDS: ALBUMIN HUMAN 25% 25 GM/100 ML 100 ML IVPB ×2 (12:14→17:04)
[2023-07-12 13:03] LABS: MRSA (PCR) NOT DETECTED (NOT DETECTE)
[2023-07-12] MEDS: BENZONATATE 100 MG CAPSULE 200 MG PO ×2 (13:45→17:08)
[2023-07-12] MEDS: guaiFENesin/DEXTROMETHORPHAN 5 ML UDC 10 ML PO (13:45)
[2023-07-12] MEDS: levoFLOXacin 750 MG/D5W 150 ML 750 MG/150 ML BAG 100 MG IVPB (13:46)
[2023-07-12] MEDS: ONDANSETRON INJ 4 MG/2 ML VIAL IV PUSH (23:19)
[2023-07-13] VITALS (21 sets, daily range): BP systolic 81–107; BP diastolic 43–69; PULSE 52–102; RESP 16–20; TEMP 35.9–36.4; O2SAT 90–98
[2023-07-13] MEDS: IPRATROPIUM 0.5 MG/ALBUTEROL SULFATE 2.5 MG AMPUL.NEB 3 ML INHALATION ×5 (00:28→23:53)
[2023-07-13 05:18] LABS: Basophils Absolute Auto 0.03 K/mm3 (0.00-0.10); Basophils Percent Auto 0.4 % (0.0-1.0); Eosinophils Absolute Auto 0.09 K/mm3 (0.02-0.50); Eosinophils Percent Auto 1.1 % (1.0-6.0); Hematocrit 30.8 % (35.0-42.0); Hemoglobin 9.4 g/dL (11.7-13.8); Immature Granulocyte Absolute 0.04 K/mm3 (0.00-0.00); Immature Granulocyte Percent A 0.5 % (0.0-0.0); Lymphocytes Absolute Auto 1.55 K/mm3 (1.10-4.50); Lymphocytes Percent Auto 18.9 % (18.0-42.0); Mean Corpuscular HGB Conc 30.5 g/dL (32-36); Mean Corpuscular Hemoglobin 27.3 pg (27.0-31.0); Mean Corpuscular Volume 89.5 fL (78.0-102.0); Mean Platelet Volume 10.3 fl (9.2-11.8); Monocytes Absolute Auto 0.86 K/mm3 (0.10-0.90); Monocytes Percent Auto 10.5 % (2.0-11.0); Neutrophils Absolute Auto 5.61 K/mm3 (1.70-7.20); Neutrophils Percent Auto 68.6 % (50.0-70.0); Platelet Count Result 179 K/mm3 (150-420); Red Blood Count 3.44 M/mm3 (4.20-5.40); Red Cell Distribution Width 16.2 % (11.6-14.4); White Blood Count 8.2 K/mm3 (4.8-10.8)
[2023-07-13 05:30] LABS: Albumin Level 3.7 g/dL (3.4-5.0); Anion Gap 4 mmol/L (8-16); Blood Urea Nitrogen 26 mg/dL (7-18); Calcium 8.5 mg/dL (8.5-10.1); Carbon Dioxide 36 mmol/L (21-32); Chloride 96 mmol/L (98-108); Estimated CRCL calculation 25 ml/min; Estimated Glomerular Filt Rate 42; Glucose 98 mg/dL (70-99); Osmolality Calculated 286 mOsm/kg (285-295); Phosphorus 4.5 mg/dL (2.6-4.7); Potassium 5.1 mmol/L (3.5-5.1); Sodium 136 mmol/L (136-145)
[2023-07-13] MEDS: ALBUMIN HUMAN 25% 25 GM/100 ML 100 ML IVPB ×2 (05:55)
[2023-07-13] MEDS: FUROSEMIDE INJ 40 MG/4 ML VIAL IV PUSH (08:12)
[2023-07-13] MEDS: MAGNESIUM OXIDE 400 MG TABLET PO ×2 (08:12→16:26)
--- NOTE | 2023-07-13 08:25 | PC.NURSE ---
DAILY Mcgee notified of B/P 0f . Metoprol and cardizem held. ro
[2023-07-13] MEDS: GABAPENTIN 300 MG CAPSULE PO ×2 (09:42→20:37)
[2023-07-13] MEDS: SALMET XINAFT/FLUTIC PROPIN 100 MCG/50 MCG INH CAP 1 PUFF INHALATION ×2 (09:42→20:36)
[2023-07-13] MEDS: ACETAMINOPHEN 325 MG TABLET 650 MG PO (09:43)
[2023-07-13] MEDS: BACLOFEN 5 MG TABLET PO (09:44)
[2023-07-13] MEDS: PANTOPRAZOLE 40 MG TABLET PO (09:44)
[2023-07-13] MEDS: BENZONATATE 100 MG CAPSULE 200 MG PO ×3 (09:44→16:26)
[2023-07-13] MEDS: APIXABAN 2.5 MG TABLET PO ×2 (09:45→20:37)
[2023-07-13] MEDS: DOXYCYCLINE HYCLATE 100 MG TABLET PO ×2 (09:45→20:37)
[2023-07-13] MEDS: ATORVASTATIN 40 MG TABLET PO (09:45)
[2023-07-13] MEDS: LORATADINE 10 MG TABLET PO (09:56)
--- NOTE | 2023-07-13 10:39 | PC.NURSE ---
Pt has 1500 ml of fluiod in and has not urinated in 12 hours. Bladder scan done. Results showed over 500ml retained. 16 FR kyle placed by RN
--- NOTE | 2023-07-13 11:28 | PM.IMPN ---
Progress Note: A&P Assessment and Plan (1) (HFpEF) heart failure with preserved ejection fraction: Code(s): I50.30 - Unspecified diastolic (congestive) heart failure Status: Acute Assessment and Plan: echocardiogram shows mild pulmonary artery hypertension and diastolic dysfunction with normal LV EF of 60-65% 07/08: Oxygen required overnight while on low continuous rate IV fluids for LV/dehydration. Stopped IV fluids and gave IV Lasix. 07/09: Still requires supplemental oxygenation, Increase Lasix to 40 mg BID. LV improved further. 07/10: CXR appears improved pulmonary edema. Atelectasis vs pneumonia noted. LV improved further. 07/11: Small fluid bolus (250 mL) given last night to support blood pressure and today patient appears to be fluid overloaded again. Continue Lasix, add albumin for blood pressure support 07/12: Patient required IV diuresis again this morning (2) LV (acute kidney injury): Code(s): N17.9 - Acute kidney failure, unspecified Status: Acute Assessment and Plan: creatinine elevated 1.6 and estimated GFR decreased to 30 from a baseline of 0.7 and greater than 60. Will initiate gentle IV rehydration believe this is related to dehydration from recent viral illness over the past week or so. 07/09: Improving. Cr 1.01, BUN 31, eGFR 52, estimated creatinine clearance 30 07/10: Continued improvement 07/11: Creatinine 1.04, BUN 24, estimated GFR 50, estimated creatinine clearance 29 07/12: Dickinson for urinary retention, Cr 1.22, eGFR 42, estimated creatinine clearance 25 (3) A-fib: Qualifiers: Atrial fibrillation type: unspecified chronic Qualified Code(s): I48.20 - Chronic atrial fibrillation, unspecified Code(s): I48.91 - Unspecified atrial fibrillation Status: Acute Assessment and Plan: 07/07: Prior history atrial fibrillation, was rapid ventricular rate on admission but has since returned to a normal rate. Continue Eliquis. Continue diltiazem. Continue metoprolol. 07/08: RVR this morning with decreased oxygen saturation. 07/09: Borderline RVR, continue diltiazem and Eliquis. 07/10: Unchanged 07/11: Unchanged 07/12: Unchanged (4) Hypertension: Code(s): I10 - Essential (primary) hypertension Status: Acute Assessment and Plan: stable, resume home medications. Blood pressure reviewed on 07/11, slightly low, hold antihypertensives, continue diuretics and IV albumin to support blood pressure 07/12: blood pressure soft/low most of the last 24 hours. Will decrease diltiazem to 120 mg tomorrow and metoprolol held for today. (5) Generalized weakness: Code(s): R53.1 - Weakness Status: Acute Assessment and Plan: Consult PT and OT 07/09: Patient may need SNF/supplemental oxygen for a while after acute discharge. May be swing bed candidate. Will reassess tomorrow. 07/11: patient still requires inpatient stay, will definitely need swing bed upon discharge from acute care 07/12: patient reports she is starting to feel a bit stronger today and is happy to do exercises with therapy (6) Acute hypoxic respiratory failure: Code(s): J96.01 - Acute respiratory failure with hypoxia Status: Acute Assessment and Plan: 07/08: Oxygen required overnight while on low continuous rate IV fluids for LV/dehydration. Stopped IV fluids and gave IV Lasix. 07/09: Still requires supplemental oxygenation, Increase Lasix to 40 mg BID. LV improved further. 07/10: Repeat CXR shows improved pulmonary edema but demonstrates atelectasis vs pneumonia. 07/11: unsuccessful attempt to wean from oxygen, apparent continued fluid overload status after small IV fluid bolus yesterday. 07/12: still requires 2 liters/minute nasal cannula (7) Community acquired bacterial pneumonia: Code(s): J15.9 - Unspecified bacterial pneumonia Status: Acute Assessment and Plan: Atelectasis vs pneumonia with hypoxia even after impro
[2023-07-13] MEDS: dilTIAZem HCL CD 240 MG CAP.24HR PO (11:32)
--- NOTE | 2023-07-13 11:47 | PC.NURSE ---
Metoprol is on hold due to decreased B/P of 88/55 at 0730. B/P has increased to 107/69 at 1140. Cardiazem was held until 1140 when B/P was better and pulse was 97.
[2023-07-13] MEDS: MIDODRINE HCL 2.5 MG TABLET 10 MG PO (16:54)
[2023-07-14] VITALS (18 sets, daily range): BP systolic 98–106; BP diastolic 45–57; PULSE 75–111; RESP 18–24; TEMP 36.1–36.6; O2SAT 90–98
[2023-07-14] MEDS: IPRATROPIUM 0.5 MG/ALBUTEROL SULFATE 2.5 MG AMPUL.NEB 3 ML INHALATION ×4 (05:41→23:32)
[2023-07-14 05:49] LABS: Basophils Absolute Auto 0.03 K/mm3 (0.00-0.10); Basophils Percent Auto 0.4 % (0.0-1.0); Eosinophils Absolute Auto 0.17 K/mm3 (0.02-0.50); Hematocrit 33.5 % (35.0-42.0); Hemoglobin 10.2 g/dL (11.7-13.8); Immature Granulocyte Absolute 0.05 K/mm3 (0.00-0.00); Immature Granulocyte Percent A 0.6 % (0.0-0.0); Lymphocytes Absolute Auto 1.38 K/mm3 (1.10-4.50); Lymphocytes Percent Auto 16.5 % (18.0-42.0); Mean Corpuscular HGB Conc 30.4 g/dL (32-36); Mean Corpuscular Hemoglobin 27.2 pg (27.0-31.0); Mean Corpuscular Volume 89.3 fL (78.0-102.0); Mean Platelet Volume 10.1 fl (9.2-11.8); Monocytes Absolute Auto 0.96 K/mm3 (0.10-0.90); Monocytes Percent Auto 11.5 % (2.0-11.0); Neutrophils Absolute Auto 5.76 K/mm3 (1.70-7.20); Platelet Count Result 199 K/mm3 (150-420); Red Blood Count 3.75 M/mm3 (4.20-5.40); Red Cell Distribution Width 16.1 % (11.6-14.4); White Blood Count 8.4 K/mm3 (4.8-10.8)
[2023-07-14] MEDS: MIDODRINE HCL 2.5 MG TABLET 5 MG PO (05:55)
[2023-07-14 06:07] LABS: Albumin Level 3.7 g/dL (3.4-5.0); Anion Gap 1 mmol/L (8-16); Blood Urea Nitrogen 26 mg/dL (7-18); Calcium 8.7 mg/dL (8.5-10.1); Carbon Dioxide 40 mmol/L (21-32); Chloride 99 mmol/L (98-108); Estimated CRCL calculation 24 ml/min; Estimated Glomerular Filt Rate 38; Glucose 89 mg/dL (70-99); Magnesium 1.8 mg/dL (1.8-2.4); Osmolality Calculated 293 mOsm/kg (285-295); Phosphorus 4.3 mg/dL (2.6-4.7); Potassium 4.7 mmol/L (3.5-5.1); Sodium 140 mmol/L (136-145)
[2023-07-14 08:50] LABS: Lactic Acid Reflex 1.4 mmol/L (0.4-2.0)
[2023-07-14 09:14] LABS: NT Pro B Type Natriuretic Pept 5523 pg/mL (0-450)
[2023-07-14] MEDS: DOXYCYCLINE HYCLATE 100 MG TABLET PO (09:35)
[2023-07-14] MEDS: dilTIAZem HCL CD 120 MG CAP.24HR PO (09:35)
[2023-07-14] MEDS: BENZONATATE 100 MG CAPSULE 200 MG PO ×3 (09:35→17:12)
[2023-07-14] MEDS: PANTOPRAZOLE 40 MG TABLET PO (09:36)
[2023-07-14] MEDS: BACLOFEN 5 MG TABLET PO (09:36)
[2023-07-14] MEDS: MAGNESIUM OXIDE 400 MG TABLET PO ×2 (09:36→17:12)
[2023-07-14] MEDS: ATORVASTATIN 40 MG TABLET PO (09:36)
[2023-07-14] MEDS: APIXABAN 2.5 MG TABLET PO ×2 (09:36→20:16)
[2023-07-14] MEDS: LORATADINE 10 MG TABLET PO (09:36)
[2023-07-14] MEDS: GABAPENTIN 300 MG CAPSULE PO ×2 (09:36→20:16)
[2023-07-14] MEDS: BUDESONIDE/FORMOTEROL (*SP) 160-4.5 MCG 6 GM INH 2 PUFF INHALATION ×2 (09:52→20:17)
[2023-07-14] MEDS: methylPREDNISolone SOD SUCC 125 MG VIAL IV PUSH (09:54)
--- NOTE | 2023-07-14 12:36 | PM.IMPN ---
Progress Note: A&P Assessment and Plan (1) (HFpEF) heart failure with preserved ejection fraction: Code(s): I50.30 - Unspecified diastolic (congestive) heart failure Status: Acute Assessment and Plan: echocardiogram shows mild pulmonary artery hypertension and diastolic dysfunction with normal LV EF of 60-65% 07/08: Oxygen required overnight while on low continuous rate IV fluids for LV/dehydration. Stopped IV fluids and gave IV Lasix. 07/09: Still requires supplemental oxygenation, Increase Lasix to 40 mg BID. LV improved further. 07/10: CXR appears improved pulmonary edema. Atelectasis vs pneumonia noted. LV improved further. 07/11: Small fluid bolus (250 mL) given last night to support blood pressure and today patient appears to be fluid overloaded again. Continue Lasix, add albumin for blood pressure support 07/12: Patient required IV diuresis again this morning 07/13: Will hold Lasix today due to LV and bump in creatinine this morning to 1.32, ProBNP 5523 today, CXR showing increasing small bilateral pleural effusions with associated atelectasis versus pneumonia. (2) LV (acute kidney injury): Code(s): N17.9 - Acute kidney failure, unspecified Status: Acute Assessment and Plan: creatinine elevated 1.6 and estimated GFR decreased to 30 from a baseline of 0.7 and greater than 60. Will initiate gentle IV rehydration believe this is related to dehydration from recent viral illness over the past week or so. 07/09: Improving. Cr 1.01, BUN 31, eGFR 52, estimated creatinine clearance 30 07/10: Continued improvement 07/11: Creatinine 1.04, BUN 24, estimated GFR 50, estimated creatinine clearance 29 07/12: Dickinson for urinary retention, Cr 1.22, eGFR 42, estimated creatinine clearance 25 07/13: Dickinson remains in place, Creatinine 1.32 today, will hold off on further diuretics (3) A-fib: Qualifiers: Atrial fibrillation type: unspecified chronic Qualified Code(s): I48.20 - Chronic atrial fibrillation, unspecified Code(s): I48.91 - Unspecified atrial fibrillation Status: Acute Assessment and Plan: 07/07: Prior history atrial fibrillation, was rapid ventricular rate on admission but has since returned to a normal rate. Continue Eliquis. Continue diltiazem. Continue metoprolol. 07/08: RVR this morning with decreased oxygen saturation. 07/09: Borderline RVR, continue diltiazem and Eliquis. 07/10: Unchanged 07/11: Unchanged 07/12: Unchanged 07/13: Rate controlled A-fib, continue cardiac monitoring, holding Metoprolol, continue diltiazem and Eliquis. (4) Hypertension: Code(s): I10 - Essential (primary) hypertension Status: Acute Assessment and Plan: stable, resume home medications. Blood pressure reviewed on 07/11, slightly low, hold antihypertensives, continue diuretics and IV albumin to support blood pressure 07/12: blood pressure soft/low most of the last 24 hours. Will decrease diltiazem to 120 mg tomorrow and metoprolol held for today. 07/13: Blood pressure ranging 81/43 to 98/52, midodrine increased to 10 mg t.i.d., metoprolol on hold (5) Generalized weakness: Code(s): R53.1 - Weakness Status: Acute Assessment and Plan: Consult PT and OT 07/09: Patient may need SNF/supplemental oxygen for a while after acute discharge. May be swing bed candidate. Will reassess tomorrow. 07/11: patient still requires inpatient stay, will definitely need swing bed upon discharge from acute care 07/12: patient reports she is starting to feel a bit stronger today and is happy to do exercises with therapy 07/13: Continue with PT and OT (6) Acute hypoxic respiratory failure: Code(s): J96.01 - Acute respiratory failure with hypoxia Status: Acute Assessment and Plan: 07/08: Oxygen required overnight while on low continuous rate IV fluids for LV/dehydration. Stopped IV fluids and gave IV Lasix. 07/09: Still requires supplemental oxyge
[2023-07-14] MEDS: MIDODRINE HCL 2.5 MG TABLET 10 MG PO ×2 (14:23→17:12)
[2023-07-14] MEDS: methylPREDNISolone SOD SUCC 40 MG VIAL IV PUSH ×2 (14:24→23:32)
[2023-07-14] MEDS: levoFLOXacin 750 MG/D5W 150 ML 750 MG/150 ML BAG 100 MG IVPB (14:24)
[2023-07-14] MEDS: ACETAMINOPHEN 325 MG TABLET 650 MG PO (20:20)
[2023-07-14] MEDS: guaiFENesin/DEXTROMETHORPHAN 5 ML UDC PO (20:20)
[2023-07-14 23:20] LABS: Pneumococcal Antigen Urine Not Detected (Not Detected)
[2023-07-15] VITALS (9 sets, daily range): BP systolic 114–131; BP diastolic 69–74; PULSE 101–132; RESP 20; TEMP 36.4–36.6; O2SAT 94–98
--- NOTE | 2023-07-15 03:41 | PC.NURSE ---
Production Support Consultant called to room, pt states I think I pooped myself . Assisted pt to standing position, no BM noted, urine noted to chair pad. Pt ambulated to bathroom with SBA and walker, O2 became disconnected for a short while causing SPO2 to drop to 74%, recovered to 93% on reapplied. Pulse noted to elevate to 160s with activity, returns to 110s with rest. Pt continent of BM while in bathroom. Tish-care and depends given, and education given on bladder spasms, pt states understanding. No further needs voiced.
--- NOTE | 2023-07-15 05:31 | PC.NURSE ---
Patient was in the recliner with her legs elevated. She has remained in this position throughout the shift. Patient states she is more comfortable in the recliner than in bed. Patient has a kyle catheter due to urinary retention. Patient has good intake and output tonight. Although her night time vitals were WNL with the exception of temperature (97.5) and heart rate (101), she has frequent episodes of tachycardia ranging from 101 to 165. Her O2 sats are typically in the 90's, but she desats with exertion, and recovers to normal ranges once she rests. Patient and daughter are concerned about a possible transfer to another hospital. CONTACT CENTER CONSULTANT will discuss that with the patient during rounds. Patient was able to doze off and on in the recliner.
[2023-07-15 05:43] LABS: Basophils Absolute Auto 0.01 K/mm3 (0.00-0.10); Basophils Percent Auto 0.1 % (0.0-1.0); Hemoglobin 10.8 g/dL (11.7-13.8); Immature Granulocyte Absolute 0.09 K/mm3 (0.00-0.00); Immature Granulocyte Percent A 0.6 % (0.0-0.0); Lymphocytes Absolute Auto 0.49 K/mm3 (1.10-4.50); Lymphocytes Percent Auto 3.5 % (18.0-42.0); Mean Corpuscular HGB Conc 31.8 g/dL (32-36); Mean Corpuscular Volume 88.1 fL (78.0-102.0); Mean Platelet Volume 10.6 fl (9.2-11.8); Monocytes Percent Auto 1.4 % (2.0-11.0); Neutrophils Absolute Auto 13.26 K/mm3 (1.70-7.20); Neutrophils Percent Auto 94.4 % (50.0-70.0); Platelet Count Result 225 K/mm3 (150-420); Red Blood Count 3.86 M/mm3 (4.20-5.40); Red Cell Distribution Width 16.2 % (11.6-14.4); White Blood Count 14.1 K/mm3 (4.8-10.8)
[2023-07-15] MEDS: IPRATROPIUM 0.5 MG/ALBUTEROL SULFATE 2.5 MG AMPUL.NEB 3 ML INHALATION (05:43)
[2023-07-15] MEDS: methylPREDNISolone SOD SUCC 40 MG VIAL IV PUSH (06:05)
[2023-07-15] MEDS: MIDODRINE HCL 2.5 MG TABLET 10 MG PO (06:07)
[2023-07-15 06:09] LABS: Alanine Aminotransferase 32 U/L (14-59); Albumin Level 3.9 g/dL (3.4-5.0); Alkaline Phosphatase 62 U/L (46-116); Anion Gap 11 mmol/L (8-16); Aspartate Amino Transferase 20 U/L (15-37); Bilirubin,Total 0.5 mg/dL (0.00-1.00); Blood Urea Nitrogen 27 mg/dL (7-18); Calcium 9.1 mg/dL (8.5-10.1); Carbon Dioxide 34 mmol/L (21-32); Chloride 92 mmol/L (98-108); Estimated CRCL calculation 26 ml/min; Estimated Glomerular Filt Rate 42; Glucose 224 mg/dL (70-99); Magnesium 1.9 mg/dL (1.8-2.4); Osmolality Calculated 296 mOsm/kg (285-295); Potassium 4.8 mmol/L (3.5-5.1); Sodium 137 mmol/L (136-145); Total Protein 6.9 g/dL (6.4-8.2)
[2023-07-15] MEDS: BACLOFEN 5 MG TABLET PO (08:39)
[2023-07-15] MEDS: BUDESONIDE/FORMOTEROL (*SP) 160-4.5 MCG 6 GM INH 2 PUFF INHALATION (08:40)
[2023-07-15] MEDS: ATORVASTATIN 40 MG TABLET PO (08:40)
[2023-07-15] MEDS: MAGNESIUM OXIDE 400 MG TABLET PO (08:40)
[2023-07-15] MEDS: PANTOPRAZOLE 40 MG TABLET PO (08:40)
[2023-07-15] MEDS: BENZONATATE 100 MG CAPSULE 200 MG PO (08:40)
[2023-07-15] MEDS: dilTIAZem HCL CD 120 MG CAP.24HR PO (08:40)
[2023-07-15] MEDS: GABAPENTIN 300 MG CAPSULE PO (08:40)
[2023-07-15] MEDS: APIXABAN 2.5 MG TABLET PO (08:40)
[2023-07-15] MEDS: LORATADINE 10 MG TABLET PO (08:40)
--- NOTE | 2023-07-15 09:17 | PM.TDS ---
Transfer Discharge Sum: Prov Provider Date of admission: 07/08/23 13:46 Primary care physician: Derrick Torres DO Admitting clinician: Abdelrahman Zavala MD Attending physician on admission: Remigio Zavala Consults: Dr. Galindo at [facility] Attending physician on discharge: Remigio Zavala Discharging clinician: Zara Martinez Anticipated date of transfer: 07/15/23 Receiving physician/facility: [facility] Dr. Galindo accepting provider DS: Admitting Diagnosis Discharge Date 07/15/2023 Admitting Diagnosis Uncontrolled A-fib w RVR, Congestive heart failure, COPD Exacerbation DS: Discharge Diagnosis Discharge Diagnosis Plan Uncontrolled A-fib w RVR, Congestive heart failure, COPD Exacerbation Send to [facility] on Cardizem drip Transfer Discharge Sum: Med Medications Active and Home Medications: Home Medications loratadine 10 mg tablet 10 mg PO DAILY 11/30/22 [History Confirmed 07/08/23] pantoprazole 40 mg tablet,delayed release (Protonix) 40 mg PO DAILY 05/10/23 [History Confirmed 07/08/23] acetaminophen 500 mg capsule 500 mg PO DAILY PRN Pain (Scale Score 1-3) 06/04/23 [History Confirmed 07/08/23] baclofen 5 mg tablet 5 mg PO DAILY 06/04/23 [History Confirmed 07/08/23] gabapentin 300 mg capsule 300 mg PO BID 06/04/23 [History Confirmed 07/08/23] atorvastatin 40 mg tablet 40 mg PO DAILY #30 tabs 06/12/23 [Rx Confirmed 07/08/23] diltiazem HCl 240 mg capsule,extended release 24 hr, controlled 240 mg PO QAM #30 caps 06/12/23 [Rx Confirmed 07/08/23] fluticasone furoate 50 mcg-vilanterol 25 mcg/dose inhalation powder (Breo Ellipta) 1 inh inhalation DAILY #60 ea 06/12/23 [Rx Confirmed 07/08/23] apixaban 2.5 mg tablet (Eliquis) 2.5 mg PO Q12HR #60 tabs 06/22/23 [Rx Confirmed 07/08/23] metoprolol succinate 50 mg tablet,extended release 24 hr 150 mg PO QAM #90 tabs 06/22/23 [Rx Confirmed 07/08/23] albuterol sulfate 90 mcg/actuation aerosol inhaler (Ventolin HFA) 1 puff inhalation Q4H PRN shortness of breath or wheezing #8 grams 07/05/23 [Rx Confirmed 07/08/23] furosemide 20 mg tablet (Lasix) 20 mg PO QAM PRN edema #20 tabs 07/05/23 [Rx Confirmed 07/08/23] Active Medications Acetaminophen (Acetaminophen 325 Mg Tablet) 650 mg PO Q4H PRN PRN Reason: Mild Pain (1-3) or Fever Last Admin: 07/14/23 20:20 Dose: 650 mg Al Hydrox/Mg Hydrox/Simethicone (Mag Hydrox/Al Hydrox/Simeth 30 Ml Udc) 30 ml PO QID PRN PRN Reason: Dyspepsia Last Admin: 07/08/23 08:32 Dose: 30 ml Albuterol (Albuterol Sulfate (*Sp) Inhaler) 1 puff INHALATION Q4H PRN PRN Reason: shortness of breath or wheezing Albuterol/Ipratropium (Ipratropium 0.5 Mg/Albuterol Sulfate 2.5 Mg Ampul.Neb 3 Ml) 3 ml INHALATION Q6HRT [facility] Last Admin: 07/15/23 05:43 Dose: 3 ml Apixaban (Apixaban 2.5 Mg Tablet) 2.5 mg PO Q12HR [facility] Last Admin: 07/15/23 08:40 Dose: 2.5 mg Atorvastatin Calcium (Atorvastatin 40 Mg Tablet) 40 mg PO DAILY [facility] Last Admin: 07/15/23 08:40 Dose: 40 mg Baclofen (Baclofen 5 Mg Tablet) 5 mg PO DAILY [facility] Last Admin: 07/15/23 08:39 Dose: 5 mg Benzonatate (Benzonatate 100 Mg Capsule) 200 mg PO TID [facility] Last Admin: 07/15/23 08:40 Dose: 200 mg Budesonide/Formoterol Fumarate (Budesonide/Formoterol (*Sp) 160-4.5 Mcg 6 Gm Inh) 2 puff INHALATION Q12HR [facility] Last Admin: 07/15/23 08:40 Dose: 2 puff Diltiazem HCl (Diltiazem Hcl Cd 120 Mg Cap.24hr) 120 mg PO DAILY [facility] Last Admin: 07/15/23 08:40 Dose: 120 mg Gabapentin (Gabapentin 300 Mg Capsule) 300 mg PO Q12HR [facility] Last Admin: 07/15/23 08:40 Dose: 300 mg Guaifenesin/Dextromethorphan (Guaifenesin/Dextromethorphan 5 Ml Udc) 5 ml PO Q4H PRN PRN Reason: Cough Last Admin: 07/14/23 20:20 Dose: 5 ml Levofloxacin 500 mg/ (Levofloxacin 250 mg) 750 mg PO Q48H WILL Loratadine (Loratadine 10 Mg Tablet) 10 mg PO DAILY [facility] Last Admin: 07/15/23 08:40 Dose: 10 mg Magnesium Oxide (Magnesium Oxide 400 Mg Tablet) 400 mg PO BIDWM [facility] Last Admin:
[2023-07-15] MEDS: dilTIAZem 100 MG/100 ML 100 MG/100 ML BAG IV CONT (09:44)
[2023-07-15] MEDS: METOPROLOL TARTRATE 50 MG TAB 100 MG (10:22)
--- NOTE | 2023-07-15 11:01 | PC.NURSE ---
1058 pt transfered to [facility] by CHRISTOPHER WISDOM PT let with cardizem gtt going at 5mg/hr in pump all belongings sent with pt and paper work to [facility] pt stable at this time
[2023-07-17 23:47] LABS: Legionella pneumophila Ag Ur Not Detected (Not Detected)
[2023-07-18 07:14] LABS: Procalcitonin 0.2 ng/mL
== END 2023-07-15 10:58 | disposition short-term general hospital (02) | DRG 291 ==
LOC: CHSED 18:43 → CHS2ND 19:43
PROVIDERS: Nurse Practitioner; Nurse Practitioner Acute Care; Admitting Provider Internal Medicine; Emergency Provider Emergency Medicine; PCP Family Medicine; Visit Provider Internal Medicine
DX: I11.0 Hypertensive heart disease with heart failure (principal); I50.33 Acute on chronic diastolic (congestive) heart failure; J96.01 Acute respiratory failure with hypoxia; J18.9 Pneumonia, unspecified organism; I48.20 Chronic atrial fibrillation, unspecified; N17.9 Acute kidney failure, unspecified; J44.0 Chronic obstructive pulmonary disease with (acute) lower respiratory infection; J20.5 Acute bronchitis due to respiratory syncytial virus; I65.29 Occlusion and stenosis of unspecified carotid artery; E78.5 Hyperlipidemia, unspecified; K57.30 Diverticulosis of large intestine without perforation or abscess without bleeding; M17.0 Bilateral primary osteoarthritis of knee; Z87.11 Personal history of peptic ulcer disease; Z87.891 Personal history of nicotine dependence
CPT/HCPCS: 36415; 71045; 71046; 80053; 80069; 81003; 83605; 83735; 83880; 84145; 85025; 85055; 87040; 87449; 87637; 87641; 87899; 93005; 94640; 96361; 96372; 96374; 96376; 97110; 97161; 97165; 97530; 99285; A9270; C8929; G0378; J1885; J1940; J1956; J2405; J2920; J2930; J3475; J7050; J7120; P9047